=== PATIENT | male | born 1945 | race Caucasian/White ===

== ENCOUNTER 2023-10-16 12:11 | Inpatient (IN) | payer MEDICARE ==
--- NOTE | 2023-10-16 12:14 | ED ---
General Adult HPI - General Source: patient, family, RN notes reviewed Mode of arrival: wheelchair Limitations: physical limitation <Asa Khan - Last Filed: 10/16/23 12:13> <Shravan Johnson - Last Filed: 10/16/23 19:35> - General Stated complaint: Weakness Time Seen by Provider: 10/16/23 12:13 - History of Present Illness Initial comments: 78-year-old male presents emergency Department chief complaint of leg weakness Patient states that he try to get off the toilet states his legs are so weak he fell on the ground. Fire rescue came and lifted him up and he presented emergency department. Patient states he had issues like this in the past in which she's had infections including UTIs. Patient has no physical complaints otherwise then lower extremity weakness. Denies significant back pain. (Asa Khan) This is a 78-year-old male who states he got up this morning was walking around without any problem. Patient states he sat on the toilet and he usually takes 20-30 minutes to go to the bathroom. Patient states he was sitting there for quite a while this morning when he went to get up he didn't have the strength in his legs to move some and fell to his knees and his was unable to get him up so the paramedics came and got him up and around and brought him here to be evaluated for weakness. Patient states he has no other complaints. Patient denies any fever chills per patient states she's got significant neuropathy bilaterally. Patient denies any chest pain difficulty breathing shortest breath per patient denies any lightheadedness or dizziness. Patient denies any other problems at this time (Shravan Johnson) - Related Data Home Medications Medication Instructions Recorded Confirmed Metoprolol Tartrate [Lopressor] 25 mg PO QAM 12/25/21 06/17/23 Cholecalciferol [Vitamin D3 (125 125 mcg PO DAILY 12/31/22 06/17/23 Mcg = 5000 Iu)] Potassium Chloride [Klor-Con M10] 10 meq PO DAILY 12/31/22 06/17/23 Pyridoxine HCl (Vitamin B6) 100 mg PO DAILY 12/31/22 06/17/23 [Vitamin B-6] Gabapentin [Neurontin] 400 mg PO TID 03/19/23 06/17/23 amLODIPine [Norvasc] 5 mg PO QAM 03/19/23 06/17/23 Allergies Allergy/AdvReac Type Severity Reaction Status Date / Time Penicillins Allergy Anaphylaxis Verified 06/17/23 14:50 Review of Systems ROS Other: All systems not noted in ROS Statement are negative. <Asa Khan - Last Filed: 10/16/23 12:13> ROS Other: All systems not noted in ROS Statement are negative. <Shravan Johnson - Last Filed: 10/16/23 19:35> ROS Statement: Those systems with pertinent positive or pertinent negative responses have been documented in the HPI. Past Medical History Past Medical History: Cancer, Hearing Disorder / Deafness, Hypertension, Osteoarthritis (OA), Prostate Disorder, Sleep Apnea/CPAP/BIPAP Additional Past Medical History / Comment(s): C PAP MACHINE, PROSTATE CANCER, KIDNEY STONES, History of Any Multi-Drug Resistant Organisms: None Reported Past Surgical History: Joint Replacement, Tonsillectomy Additional Past Surgical History / Comment(s): TOTAL LEFT KNEE-X 2, BUNIONECTOMY RIGHT FOOT, RIGHT HIP REPLACEMENT Past Anesthesia/Blood Transfusion Reactions: No Reported Reaction Additional Past Anesthesia/Blood Transfusion Reaction / Comment(s): Never recieved blood transfusion. Additional Past Alcohol Use History / Comment(s): STARTED SMOKING AGE 12 QUIT SMOKED 2-3 PPD - Past Family History Father Family Medical History: Cancer Additional Family Medical History / Comment(s): BRAIN CANCER. Mother Family Medical History: Cancer Additional Family Medical History / Comment(s): LUNG CANCER. Brother(s) Family Medical History: Cancer Additional Family Medical History / Comment(s): PANCREATIC CANCER. <Asa Khan - Last Filed: 10/16/23 12:13> General Exam <Asa Khan - Last Filed: 10/16/23 12:13> <Shravan Johnson - Last Filed: 10/16/23 19:35> - General Exam Comments Initial Comments: Visual Physical Exam Vital signs reviewed General: Well-appearing, nontoxic, no acute distress. Head: Normocephalic, atraumatic Eyes: PERRLA, EOMI ENT: Airway patent Chest: Nonlabored breathing Skin: No visual rash, normal skin tone Neuro: Alert and oriented 3 Musculoskeletal: No gross abnormalities (Asa Khan) GENERAL: Patient is well-developed and well-nourished. Patient is nontoxic and well- hydrated and is in no acute distress. ENT: Neck is soft and supple. No significant lymphadenopathy is noted. Oropharynx is clear. Moist mucous membranes. Neck has full range of motion without eliciting any pain. EYES: The sclera were anicteric and conjunctiva were pink and moist. Extraocular movements were intact and pupils were equal round and reactive to light. Eyelids were unremarkable. PULMONARY: Unlabored respirations. Good breath sounds bilaterally. No audible rales rhonchi or wheezing was noted. CARDIOVASCULAR: There is a regular rate and rhythm without any murmurs gallops or rubs. ABDOMEN: Soft and nontender with normal bowel sounds. SKIN: Skin is clear with no lesions or rashes and otherwise unremarkable. NEUROLOGIC: Patient is alert and oriented x3. Cranial nerves II through XII are grossly intact. Motor and sensory are also intact. Normal speech, volume and content. Symmetrical smile. MUSCULOSKELETAL: Normal extremities with adequate strength and full range of motion. LYMPHATICS: No significant lymphadenopathy is noted PSYCHIATRIC: Normal psychiatric evaluation. (Shravan Johnson) Course Vital Signs 10/16/23 10/16/23 10/16/23 12:12 13:54 17:19 Temperature 98.4 F 98.8 F Pulse Rate 93 77 78 Pulse Rate [ Left] Pulse Rate [ Pulse Oximetery ] Respiratory 18 18 16 Rate Blood Pressure 127/78 119/72 116/76 Blood Pressure [Left Arm Supine] Blood Pressure [Sitting] Blood Pressure [Standing] O2 Sat by Pulse 96 100 97 Oximetry 10/16/23 10/16/23 18:34 18:52 Temperature 99.0 F Pulse Rate 61 Pulse Rate [ 91 Left] Pulse Rate [ 91 Pulse Oximetery ] Respiratory 16 Rate Blood Pressure 116/64 Blood Pressure 123/74 [Left Arm Supine] Blood Pressure 119/81 [Sitting] Blood Pressure 154/90 [Standing] O2 Sat by Pulse 97 Oximetry Medical Decision Making <Asa Khan - Last Filed: 10/16/23 12:13> - Lab Data Result diagrams: 10/16/23 12:49 10/16/23 12:49 <Shravan Johnson - Last Filed: 10/16/23 19:35> - Medical Decision Making I completed the quick note portion of this chart signed Asa Khan PA-C (Asa Khan) EKG is interpreted by myself. EKG shows a sinus rhythm at 90 bpm DE interval 233 QRS 91 QT interval 364 QTC is 402. Patient's EKG shows no ST segment elevation or depression. Was pt. sent in by a medical professional or institution ([facility], [employer], urgent care, hospital, or retirement...) When possible be specific @ -No Did you speak to anyone other than the patient for history (EMS, parent, family, police, friend...)? What history was obtained from this source @ -No Did you review nursing and triage notes (agree or disagree)? Why? @ -I reviewed and agree with nursing and triage notes Were old charts reviewed (outside hosp., previous admission, EMS record, old EKG, old radiological studies, urgent care reports/EKG's, retirement records)? Report findings @ -I reviewed prior charts and reviewed prior lab work Differential Diagnosis (chest pain, altered mental status, abdominal pain women, abdominal pain men, vaginal bleeding, weakness, fever, dyspnea, syncope, headache, dizziness, GI bleed, back pain, seizure, CVA, palpatations, mental health, musculoskeletal)? @ -Differential Weakness: Hypoglycemia, shock, sepsis, hyponatremia, anemia, infection, PA, ETOH, adverse medicine reaction, overdose, stroke, this is not meant to be an all-inclusive list. EKG interpreted by me (3pts min.). @ -As above X-rays interpreted by me (1pt min.). @ -Chest x-ray shows no acute abnormality CT interpreted by me (1pt min.). @ -None done U/S interpreted by me (1pt. min.). @ -None done What testing was considered but not performed or refused? (CT, X-rays, U/S, labs)? Why? @ -None What meds were considered but not given or refused? Why? @ -None Did you discuss the management of the patient with other professionals (professionals i.e. [facility], [employer], lab, RT, psych nurse, social services coordinator, diversified crops ii farmworker, teacher, administrative services officer, rn field case manager)? Give summary @ -I spoke with sound physician's agreed to admit the patient admitted the patient wrote admitting orders Was smoking cessation discussed for >3mins.? @ -No Was critical care preformed (if so, how long)? @ -No Were there social determinants of health that impacted care today? How? (Homelessness, low income, unemployed, alcoholism, drug addiction, transportation, low edu. Level, literacy, decrease access to med. care, senior care, rehab)? @ -No Was there de-escalation of care discussed even if they declined (Discuss DNR or withdrawal of care, Hospice)? DNR status @ -No What co-morbidities impacted this encounter? (DM, HTN, Smoking, COPD, CAD, Cancer, CVA, ARF, Chemo, Hep., AIDS, mental health diagnosis, sleep apnea, m orbid obesity)? @ -None Was patient admitted / discharged? Hospital course, mention meds given and route, prescriptions, significant lab abnormalities, going to OR and other pertinent info. @ -. Patient was given antibiotics for the urinary tract infection. Patient also had a red area on the right hip. He insisted he thinks it was there before but it is red and hot and with the high white count, I am concerned that it could be cellulitis. Patient will be admitted to [facility] physician's I wrote admitting orders Undiagnosed new problem with uncertain prognosis? @ -No Drug Therapy requiring intensive monitoring for toxicity (Heparin, Nitro, Insulin, Cardizem)? @ -No Were any procedures done? @ -No Diagnosis/symptom? @ -Urinary tract infection Acute, or Chronic, or Acute on Chronic? @ -Acute Uncomplicated (without systemic symptoms) or Complicated (systemic symptoms)? @ -Complicated Side effects of treatment? @ -No Exacerbation, Progression, or Severe Exacerbation? @ -No Poses a threat to life or bodily function? How? (Chest pain, USA, PA, pneumonia, PE, COPD, DKA, ARF, appy, cholecystitis, CVA, Diverticulitis, Homicidal, Suicidal, threat to staff... and all critical care pts) @ -Yes this could lead to sepsis and and organ dysfunction Diagnosis/symptom? @ -Inability to ambulate Acute, or Chronic, or Acute on Chronic? @ -Acute Uncomplicated (without systemic symptoms) or Complicated (systemic symptoms)? @ -Complicated Side effects of treatment? @ -none Exacerbation, Progression, or Severe Exacerbation] @ -no Poses a threat to life or bodily function? @ -no Diagnosis/symptom? @ -Hip cellulitis Acute, or Chronic, or Acute on Chronic? @ -Acute Uncomplicated (without systemic symptoms) or Complicated (systemic symptoms)? @ -Complicated Side effects of treatment? @ -none Exacerbation, Progression, or Severe Exacerbation] @ -no Poses a threat to life or bodily function? @ -no (JohnsonMalachiShravan) - Lab Data Lab Results 10/16/23 10/16/23 10/16/23 Range/Units 12:49 12:49 12:49 WBC 24.3 H (3.8-10.6) k/uL RBC 5.03 (4.30-5.90) m/uL Hgb 15.2 (13.0-17.5) gm/dL Hct 47.1 (39.0-53.0) % MCV 93.5 (80.0-100.0) fL MCH 30.1 (25.0-35.0) pg MCHC 32.2 (31.0-37.0) g/dL RDW 14.4 (11.5-15.5) % Plt Count 230 (150-450) k/uL MPV 7.0 Neutrophils % 92 % Lymphocytes % 3 % Monocytes % 3 % Eosinophils % 0 % Basophils % 0 % Neutrophils # 22.3 H (1.3-7.7) k/uL Lymphocytes # 0.6 L (1.0-4.8) k/uL Monocytes # 0.8 (0-1.0) k/uL Eosinophils # 0.0 (0-0.7) k/uL Basophils # 0.1 (0-0.2) k/uL Sodium 139 (137-145) mmol/L Potassium 4.5 (3.5-5.1) mmol/L Chloride 101 (98-107) mmol/L Carbon Dioxide 26 (22-30) mmol/L Anion Gap 12 mmol/L BUN 18 (9-20) mg/dL Creatinine 1.04 (0.66-1.25) mg/dL Est GFR (CKD-EPI)AfAm 80 (>60 ml/min/1.73 sqM) Est GFR (CKD-EPI)NonAf 69 (>60 ml/min/1.73 sqM) Glucose 123 H (74-99) mg/dL Plasma Lactic Acid Gordo 1.7 (0.7-2.0) mmol/L Calcium 9.3 (8.4-10.2) mg/dL Total Bilirubin 1.1 (0.2-1.3) mg/dL AST 33 (17-59) U/L ALT 28 (4-49) U/L Alkaline Phosphatase 77 (38-126) U/L Total Protein 7.3 (6.3-8.2) g/dL Albumin 4.4 (3.5-5.0) g/dL Amylase 42 (30-110) U/L Lipase 26 (23-300) U/L Urine Color Urine Appearance (Clear) Urine pH (5.0-8.0) Ur Specific Ripley (1.001-1.035) Urine Protein (Negative) Urine Glucose (UA) (Negative) Urine Ketones (Negative) Urine Blood (Negative) Urine Nitrite (Negative) Urine Bilirubin (Negative) Urine Urobilinogen (<2.0) mg/dL Ur Leukocyte Esterase (Negative) Urine RBC (0-5) /hpf Urine WBC (0-5) /hpf Ur Squamous Epith Cells (0-4) /hpf Urine Bacteria (None) /hpf Urine Mucus (None) /hpf Influenza Type A (PCR) (Not Detectd) Influenza Type B (PCR) (Not Detectd) RSV (PCR) (Not Detectd) SARS-CoV-2 (PCR) (Not Detectd) 10/16/23 10/16/23 Range/Units 12:49 13:56 WBC (3.8-10.6) k/uL RBC (4.30-5.90) m/uL Hgb (13.0-17.5) gm/dL Hct (39.0-53.0) % MCV (80.0-100.0) fL MCH (25.0-35.0) pg MCHC (31.0-37.0) g/dL RDW (11.5-15.5) % Plt Count (150-450) k/uL MPV Neutrophils % % Lymphocytes % % Monocytes % % Eosinophils % % Basophils % % Neutrophils # (1.3-7.7) k/uL Lymphocytes # (1.0-4.8) k/uL Monocytes # (0-1.0) k/uL Eosinophils # (0-0.7) k/uL Basophils # (0-0.2) k/uL Sodium (137-145) mmol/L Potassium (3.5-5.1) mmol/L Chloride (98-107) mmol/L Carbon Dioxide (22-30) mmol/L Anion Gap mmol/L BUN (9-20) mg/dL Creatinine (0.66-1.25) mg/dL Est GFR (CKD-EPI)AfAm (>60 ml/min/1.73 sqM) Est GFR (CKD-EPI)NonAf (>60 ml/min/1.73 sqM) Glucose (74-99) mg/dL Plasma Lactic Acid Gordo (0.7-2.0) mmol/L Calcium (8.4-10.2) mg/dL Total Bilirubin (0.2-1.3) mg/dL AST (17-59) U/L ALT (4-49) U/L Alkaline Phosphatase (38-126) U/L Total Protein (6.3-8.2) g/dL Albumin (3.5-5.0) g/dL Amylase (30-110) U/L Lipase (23-300) U/L Urine Color Yellow Urine Appearance Slightly Cloudy (Clear) Urine pH 5.0 (5.0-8.0) Ur Specific Ripley 1.010 (1.001-1.035) Urine Protein Trace H (Negative) Urine Glucose (UA) Negative (Negative) Urine Ketones Negative (Negative) Urine Blood Large H (Negative) Urine Nitrite Negative (Negative) Urine Bilirubin Negative (Negative) Urine Urobilinogen <2.0 (<2.0) mg/dL Ur Leukocyte Esterase Small H (Negative) Urine RBC 66 H (0-5) /hpf Urine WBC 99 H (0-5) /hpf Ur Squamous Epith Cells <1 (0-4) /hpf Urine Bacteria Rare H (None) /hpf Urine Mucus Rare H (None) /hpf Influenza Type A (PCR) Not Detected (Not Detectd) Influenza Type B (PCR) Not Detected (Not Detectd) RSV (PCR) Not Detected (Not Detectd) SARS-CoV-2 (PCR) Not Detected (Not Detectd) Disposition <Asa Khan - Last Filed: 10/16/23 12:13> Time of Disposition: 19:35 <Shravan Johnson - Last Filed: 10/16/23 19:35> Clinical Impression: Urinary tract infection, Inability to walk, Cellulitis of hip Disposition: ADMITTED IP TO THIS HOSP Referrals: Asa Clark DO [Primary Care Provider] - 1-2 days
[2023-10-16 13:09] LABS: Basophils # (A) 0.1 k/uL (0-0.2); Basophils % (A) 0 %; Eosinophils % (A) 0 %; HCT 47.1 % (39.0-53.0); HGB 15.2 gm/dL (13.0-17.5); Lymphocytes # (A) 0.6 k/uL (1.0-4.8); Lymphocytes % (A) 3 %; MCH 30.1 pg (25.0-35.0); MCHC 32.2 g/dL (31.0-37.0); MCV 93.5 fL (80.0-100.0); Monocytes # (A) 0.8 k/uL (0-1.0); Monocytes % (A) 3 %; Neutrophils # (A) 22.3 k/uL (1.3-7.7); Neutrophils % (A) 92 %; Platelet Count 230 k/uL (150-450); RBC 5.03 m/uL (4.30-5.90); RDW 14.4 % (11.5-15.5); WBC 24.3 k/uL (3.8-10.6)
[2023-10-16 13:23] LABS: ALT 28 U/L (4-49); AST 33 U/L (17-59); African American GFR (CKD) 80 (>60 ml/min/1.73 sqM); Albumin 4.4 g/dL (3.5-5.0); Alkaline Phosphatase 77 U/L (38-126); Amylase 42 U/L (30-110); Anion Gap 12 mmol/L; Blood Urea Nitrogen 18 mg/dL (9-20); Calcium 9.3 mg/dL (8.4-10.2); Carbon Dioxide 26 mmol/L (22-30); Chloride 101 mmol/L (98-107); Glucose 123 mg/dL (74-99); Lipase 26 U/L (23-300); Non-African American GFR(CKD) 69 (>60 ml/min/1.73 sqM); Potassium 4.5 mmol/L (3.5-5.1); Sodium 139 mmol/L (137-145); Total Bilirubin 1.1 mg/dL (0.2-1.3); Total Protein 7.3 g/dL (6.3-8.2)
--- NOTE | 2023-10-16 16:12 | XR ---
EXAMINATION TYPE: XR chest 2V DATE OF EXAM: 10/16/2023 COMPARISON: Chest x-ray January 06, 2022 HISTORY: Difficulty in breathing. TECHNIQUE: Frontal and lateral views of the chest are obtained. FINDINGS: Suboptimal due to large body habitus. Elevated left hemidiaphragm redemonstrated. There is no suspicious new focal air space opacity, pleural effusion, or pneumothorax seen. Mild cardiomegaly redemonstrated. The osseous structures are intact. IMPRESSION: Suboptimal study. Mild cardiomegaly without new acute pulmonary process
[2023-10-16 19:10] LABS: Appearance,Urine Slightly Cloudy (Clear); Color,Urine Yellow; Protein,Urine Trace (Negative)
[2023-10-16 19:11] LABS: Bilirubin,Urine Negative (Negative); Blood,Urine Large (Negative); Glucose,Urine (UA) Negative (Negative); Ketones,Urine Negative (Negative); Leukocyte Esterase,Urine Small (Negative); Nitrite,Urine Negative (Negative); Urobilinogen,Urine <2.0 mg/dL (<2.0)
[2023-10-16 19:12] LABS: Bacteria,Urine Rare /hpf; Mucus,Urine Rare /hpf; RBC,Urine 66 /hpf (0-5); Squamous Epithelial Cell,Urine <1 /hpf (0-4); WBC,Urine 99 /hpf (0-5)
[2023-10-16] MEDS ORDERED: LEVOFLOXACIN 750MG-D5W PMX 750 MG in DEXTROSE/WATER 1 150ML.BAG IVPB STA (19:23)
--- NOTE | 2023-10-17 01:08 | P.HPIM ---
History of Present Illness H&P Date: 10/16/23 Patient is a 78-year-old male with a PMH of prostate cancer and hypertension who presents to the emergency room with complaints of weakness. Patient reports he was sitting on his toilet and was unable to stand up due to leg weakness. Subsequently had a fall where he denies experiencing head trauma. He dialed 911 and called for his to help him get off the floor. At baseline ambulates with a walker and cane. He notes his weakness has been progressively worsening over the past several weeks. Denied any additional complaints. Denied experiencing urinary complaints, chest discomfort, shortness of breath, fever, chills, cough, nausea, vomiting, abdominal pain, diarrhea. In the emergency room a chest x-ray was unremarkable with EKG showing sinus rhythm with sinus arrhythmia at 90 bpm with T-wave flattening in leads V3 to V6 and leads 3 and aVF. Laboratory evaluation was remarkable for leukocytosis of 24.3 with abnormal UA showing blood and WBCs. The patient also had a T-max of 100.3F with SpO2 94% on room air, repeat 98/64, pulse 84, and respiratory rate 15. ED documentation reviewed and case discussed with ED provider. Review of systems: Pertinent positives and negatives as discussed in HPI, a complete review of systems was performed and all other systems are negative. Physical examination: Vital signs reviewed General: non toxic, no distress, appears at stated age, normal weight Derm: Mild erythema without tenderness or large area involving the right hip, warm Head: atraumatic, normocephalic, symmetric Eyes: EOMI, no lid lag, anicteric sclera, pupils equal round reactive to light ENT: Nose and ears atraumatic Neck: No cervical lymphadenopathy, trachea midline, supple Mouth: no lip lesion, mucus membranes moist Cardiovascular: S1S2 reg, no murmur, positive dorsalis pedis pulse bilateral, no edema Lungs: CTA bilateral, no rhonchi, no rales, no accessory muscle use Abdominal: soft, nontender to palpation, no guarding Ext: muscle strength 3 out of 5 in all 4 extremities grossly, no gross muscle atrophy, no contractures, Neuro: CN II-XI grossly intact, no gross focal neuro deficits Psych: Alert, oriented, appropriate affect Assessment: Sepsis secondary to UTI Debility Chronic conditions: Prostate cancer, hypertension Imaging: In the emergency room a chest x-ray was unremarkable with EKG showing sinus rhythm with sinus arrhythmia at 90 bpm with T-wave flattening in leads V3 to V6 and leads 3 and aVF Data Review: Laboratory evaluation was remarkable for leukocytosis of 24.3 with abnormal UA showing blood and WBCs. The patient also had a T-max of 100.3F with SpO2 94% on room air, repeat 98/64, pulse 84, and respiratory rate 15. Plan: Continue with Levaquin 750 mg every 24 hours (penicillin ALLERGY) Obtain CT brain and hip xray Follow-up blood and urine cultures PT consult DVT prophylaxis: Lovenox subcu The patient is admitted with an anticipated less than 2 midnight stay for evaluation of UTI CODE STATUS: Full Code Discussed with: Patient Anticipated discharge place: Home Past Medical History Past Medical History: Cancer, Hearing Disorder / Deafness, Hypertension, Osteoarthritis (OA), Prostate Disorder, Sleep Apnea/CPAP/BIPAP Additional Past Medical History / Comment(s): C PAP MACHINE, PROSTATE CANCER, KIDNEY STONES, History of Any Multi-Drug Resistant Organisms: None Reported Past Surgical History: Joint Replacement, Tonsillectomy Additional Past Surgical History / Comment(s): TOTAL LEFT KNEE-X 2, BUNIONECTOMY RIGHT FOOT, RIGHT HIP REPLACEMENT Past Anesthesia/Blood Transfusion Reactions: No Reported Reaction Additional Past Anesthesia/Blood Transfusion Reaction / Comment(s): Never recieved blood transfusion. Past Psychological History: No Psychological Hx Reported Smoking Status: Former smoker Past Alcohol Use History: Rare Additional Past Alcohol Use History / Comment(s): STARTED SMOKING AGE 12 QUIT SMOKED 2-3 PPD Past Drug Use History: None Reported - Past Family History Father Family Medical History: Cancer Additional Family Medical History / Comment(s): BRAIN CANCER. Mother Family Medical History: Cancer Additional Family Medical History / Comment(s): LUNG CANCER. Brother(s) Family Medical History: Cancer Additional Family Medical History / Comment(s): PANCREATIC CANCER. Medications and Allergies Home Medications Medication Instructions Recorded Confirmed Type Metoprolol Tartrate [Lopressor] 25 mg PO DAILY 12/25/21 10/16/23 History Potassium Chloride [Klor-Con M10] 10 meq PO DAILY 12/31/22 10/16/23 History Gabapentin [Neurontin] 400 mg PO TID 03/19/23 10/16/23 History amLODIPine [Norvasc] 5 mg PO DAILY 03/19/23 10/16/23 History Furosemide [Lasix] 20 mg PO DAILY 10/16/23 10/16/23 History Allergies Allergy/AdvReac Type Severity Reaction Status Date / Time Penicillins Allergy Anaphylaxis Verified 10/16/23 20:04 Physical Exam Vitals: Vital Signs Temp Pulse Pulse Pulse Resp BP BP 10/16/23 23:17 100.3 F H 84 15 98/64 10/16/23 20:00 98.9 F 68 18 118/68 10/16/23 18:52 99.0 F 61 16 116/64 10/16/23 18:34 91 91 123/74 10/16/23 17:19 98.8 F 78 16 116/76 10/16/23 13:54 77 18 119/72 10/16/23 12:12 98.4 F 93 18 127/78 BP BP Pulse Ox 10/16/23 23:17 94 L 10/16/23 20:00 97 10/16/23 18:52 97 10/16/23 18:34 119/81 154/90 10/16/23 17:19 97 10/16/23 13:54 100 10/16/23 12:12 96 Intake and Output 10/16/23 10/16/23 10/17/23 14:59 22:59 06:59 Other: Voiding Method Diaper Weight 129.274 kg 129.274 kg Results CBC & Chem 7: 10/16/23 12:49 10/16/23 12:49 Labs: Abnormal Lab Results - Last 24 Hours (Table) 10/16/23 10/16/23 10/16/23 Range/Units 12:49 12:49 13:56 WBC 24.3 H (3.8-10.6) k/uL Neutrophils # 22.3 H (1.3-7.7) k/uL Lymphocytes # 0.6 L (1.0-4.8) k/uL Glucose 123 H (74-99) mg/dL Urine Protein Trace H (Negative) Urine Blood Large H (Negative) Ur Leukocyte Esterase Small H (Negative) Urine RBC 66 H (0-5) /hpf Urine WBC 99 H (0-5) /hpf Urine Bacteria Rare H (None) /hpf Urine Mucus Rare H (None) /hpf Thrombosis Risk Factor Assmnt - Choose All That Apply Any of the Below Risk Factors Present?: Yes Each Factor Represents 1 point: Obesity (BMI >25) Other Risk Factors: Yes Each Risk Factor Represents 3 Points: Age 75 years or older Thrombosis Risk Factor Assessment Total Risk Factor Score: 4 Thrombosis Risk Factor Assessment Level: Moderate Risk
[2023-10-17] MEDS: SODIUM CHLORIDE 0.9% 1,000 ML IV SCH ×3 (02:00→19:13)
--- NOTE | 2023-10-17 05:00 | CT ---
EXAM: CT Head Without Intravenous Contrast CLINICAL HISTORY: ITS.REASON CT Reason: unwitnessed fall TECHNIQUE: Axial computed tomography images of the head/brain without intravenous contrast. CTDI is 45.2 mGy and DLP is 1125 mGy-cm. This CT exam was performed using one or more of the following dose reduction techniques: automated exposure control, adjustment of the mA and/or kV according to patient size, and/or use of iterative reconstruction technique. COMPARISON: No relevant prior studies available. FINDINGS: Brain: No hemorrhage or mass effect. Prominent extra-axial space in the left lateral convexity. Ventricles: No hydrocephalus. Bones/joints: Unremarkable. Soft tissues: Unremarkable. Sinuses: No air fluid level. Mastoid air cells: Clear. IMPRESSION: No acute hemorrhage, hydrocephalus, or mass effect. Prominent extra-axial space in the left lateral convexity. This may be from volume loss or trace subdural hygroma. EXAM: CT Cervical Spine Without Intravenous Contrast CLINICAL HISTORY: ITS.REASON CT Reason: unwitnessed fall TECHNIQUE: Axial computed tomography images of the cervical spine without intravenous contrast. CTDI is 33 mGy and DLP is 952.9 mGy-cm. This CT exam was performed using one or more of the following dose reduction techniques: automated exposure control, adjustment of the mA and/or kV according to patient size, and/or use of iterative reconstruction technique. COMPARISON: No relevant prior studies available. FINDINGS: Vertebrae: No acute fracture. Subcentimeter sclerotic lesion T1, likely bone island. Discs/spinal canal/neural foramina: degenerative changes. Moderate spinal canal stenosis C3-4 and C4-5. Soft tissues: No prevertebral swelling. Enlarged thyroid glands. IMPRESSION: No acute fracture or subluxation. Enlarged thyroid glands.
--- NOTE | 2023-10-17 07:03 | XR ---
EXAMINATION TYPE: XR Hip Bilateral and AP pelvis DATE OF EXAM: 10/17/2023 2:00 AM CLINICAL INDICATION:Male, 78 years old with history of fall; H COMPARISON: Right hip radiographs 04/29/2023 and before TECHNIQUE: Frontal view pelvis with frontal/frog-leg lateral views of each hip. FINDINGS: Osseous mineralization appears appropriate. Mild to moderate left hip osteoarthropathy. Mild degenera tive change of the SI joints. Right total hip arthroplasty in place. Partially seen posterior fusion changes at the L4 L5 S1 levels with prosthetic disc interspace material L4-L5 and L5-S1. No acute fra cture lucency or significant malalignment is identified. Right total hip arthroplasty appears intact and unchanged from prior. Small amount of talha-hardware l ucency at the proximal aspect of the femur is stable from the prior examination. No significant perih ardware lucency is seen along the distal aspect of the femoral stem. Soft tissues are unremarkable. IMPRESSION: 1. No evidence of acute fracture or traumatic malalignment of the pelvis or hips. 2. Right total hip arthroplasty, appears intact and unchanged from previous. Small lucency adjacent to the proximal femoral component of the hip arthroplasty, similar to prior, could be seen with some degree of loosening. 3. Mild/moderate left hip osteoarthropathy.
[2023-10-17] MEDS: METOPROLOL TARTRATE 25 MG TAB PO SCH (09:55)
[2023-10-17] MEDS: ENOXAPARIN 40 MG/0.4 ML SYRINGE SQ SCH (09:55)
[2023-10-17] MEDS: GABAPENTIN 400 MG CAP PO SCH ×3 (09:55→20:55)
[2023-10-17] MEDS: amLODIPine 5 MG TAB PO SCH (09:55)
[2023-10-17] MEDS: ACETAMINOPHEN TAB 325 MG TAB PO PRN (16:49)
--- NOTE | 2023-10-17 18:32 | P.PN ---
Subjective Progress Note Date: 10/17/23 Hospital course: Patient is a very pleasant 78-year-old male with a past medical history of prostate cancer, hypertension, and obstructive sleep apnea CPAP dependent. He presented to the emergency department with a chief complaint of weakness and fall at home. Patient reports he was sitting on the toilet and was unable to even stand up due to leg weakness. Patient reports weakness in bilateral legs denies numbness. Patient's was unable to help him get up and called for EM S. Patient baseline ambulates with a wheeled walker. Patient denies obtaining any injuries in the fall just reports overall generalized weakness. He underwent full evaluation in the emergency department. Vital signs completed and reviewed. Blood pressure 98/64, heart rate 84, respiratory rate 15, temperature 100.3F, and SpO2 of 94% on room air. Labs were completed and reviewed. CBC showing significant leukocytosis with WBC count of 24.3. BMP was unremarkable. Liver profile unremarkable. Urinalysis positive for protein, blood, and infection with leukocytes, 66 RBCs, and 99 WBCs. Influenza A, influenza B, RSV and Covid PCR were all negative. CT head and cervical spine negative for acute process. CT cervical spine showing enlarged thyroid glands. X-ray bilateral hip/pelvis showing no evidence of acute fracture or traumatic malalignment of the pelvis or hips revealing right total hip arthroplasty appears to be intact and mild to moderate left hip osteoarthroplasty. EKG comp leted and reviewed showing normal sinus rhythm with sinus arrhythmia at 90 bpm. Chest x-ray showing mild cardiomegaly negative for acute cardiopulmonary process. Patient was admitted under our services to observation unit for acute cystitis with hematuria and signs of sepsis. Physical exam: Vital signs reviewed and stable. General: Nontoxic, no distress and appears stated age. Obese. Derm: Skin warm and dry, normal coloration for ethnicity. Head: Atraumatic, normocephalic and symmetric. Eyes: EOMs intact, no lid lag, and anicteric sclera Mouth: no lip lesions, mucus membranes moist Cardiovascular: regular rate and rhythm with normal S1S2, systolic murmur, positive posterior tibial pulses bilaterally, and cap refill < 2 seconds. Lungs: Respirations even, regular, and unlabored on room air. Lungs CTA bilaterally, no rhonchi, no rales, no wheezing, and no accessory muscle usage. Abdominal: soft, nontender to palpation, no guarding, no appreciable organomegaly Ext: ROM intact. No gross muscle atrophy, scant edema, no contractures Neuro: Speech clear, face symmetrical and CN II-XII grossly intact with no noted focal neuro deficits Psych: Alert and oriented to person, place, time, and situation. Appropriate and pleasant affect. Assessment and Plan of Care: Acute cystitis with hematuria Sepsis secondary to above Generalized Weakness and fall -Patient received IV fluid hydration and tolerating oral intake well. IV fluids discontinued. -Order placed for IV antibiotics with Rocephin 2 g every 24 hours and follow up on urine culture results. -Order placed for Close monitoring of I's and O's. -Follow up on urine culture and blood culture. -Order placed for repeat CBC to follow up on significant leukocytosis and for BMP for close monitoring of renal function. -Consults placed to physical and occupational therapy for evaluation. -Tylenol 650 mg by mouth every 6 hours as needed for mild pain and/or fever. Obstructive sleep apnea -Order placed for continuation of CPAP nightly and while napping. Hypertension Continue daily medication regimen with Norvasc 5 mg daily and metoprolol 25 mg daily. Incidental finding on CT -Enlarged thyroid glands, recommend follow-up with outpatient nonemergent ultrasound. -We will obtain TSH and free T4. Data and imaging reviewed: Vital signs reviewed. Blood pressure 120/73, heart rate 114, temp 97.9F, SpO2 of 94% on room air. CODE STATUS: Full code DVT prophylaxis: Lovenox Anticipated discharge date: Within the next [address]: Home with homecare Patient was seen independently by Nurse Pracitioner. This document was prepared using [employer] dictation software. Please allow for errors in soldering inspector, while rare they do occur. Arjun Vazquez NP rendered care for this patient independently, reviewed the findings and plan as documented in the note above. I did not physically speak with or examine the patient on this date. Objective - Vital Signs Vital signs: Vital Signs Temp 98.2 F 10/17/23 14:39 Pulse 82 10/17/23 14:39 Resp 20 10/17/23 14:39 BP 122/67 10/17/23 14:39 Pulse Ox 96 10/17/23 14:39 FiO2 Intake & Output 10/16/23 10/17/23 10/17/23 18:59 06:59 18:59 Intake Total 1000 Balance 1000 Weight 129.274 kg 129.274 kg Intake: Oral 1000 Other: Voiding Method Diaper Bedside Commode Diaper External Catheter # Voids 2 2 - Labs CBC & Chem 7: 10/16/23 12:49 10/16/23 12:49 Labs: Abnormal Lab Results - Last 24 Hours (Table) 10/16/23 Range/Units 13:56 Urine Protein Trace H (Negative) Urine Blood Large H (Negative) Ur Leukocyte Esterase Small H (Negative) Urine RBC 66 H (0-5) /hpf Urine WBC 99 H (0-5) /hpf Urine Bacteria Rare H (None) /hpf Urine Mucus Rare H (None) /hpf
[2023-10-17] MEDS ORDERED: LEVOFLOXACIN 750MG-D5W PMX 750 MG in DEXTROSE/WATER 1 150ML.BAG IVPB SCH (20:00)
[2023-10-18] MEDS: ACETAMINOPHEN TAB 325 MG TAB PO PRN ×3 (03:44→19:49)
[2023-10-18] MEDS: amLODIPine 5 MG TAB PO SCH (08:41)
[2023-10-18] MEDS: GABAPENTIN 400 MG CAP PO SCH ×3 (08:41→19:49)
[2023-10-18] MEDS: METOPROLOL TARTRATE 25 MG TAB PO SCH (08:41)
[2023-10-18] MEDS: ENOXAPARIN 40 MG/0.4 ML SYRINGE SQ SCH (08:41)
[2023-10-18 09:22] LABS: ALT 19 U/L (10-49); AST 19 U/L (14-35); Albumin 3.5 g/dL (3.8-4.9); Albumin/Globulin Ratio 1.46 Ratio (1.60-3.17); Alkaline Phosphatase 67 U/L (41-126); Blood Urea Nitrogen 16.4 mg/dL (9.0-27.0); Calcium 8.4 mg/dL (8.7-10.3); Carbon Dioxide 23.8 mmol/L (21.6-31.8); Chloride 102 mmol/L (96-109); Globulin 2.4 g/dL (1.6-3.3); Glucose 123 mg/dL (70-110); Magnesium 2.1 mg/dL (1.5-2.4); Potassium 3.7 mmol/L (3.5-5.5); Sodium 136 mmol/L (135-145); Total Bilirubin 0.5 mg/dL (0.3-1.2); Total Protein 5.9 g/dL (6.2-8.2)
[2023-10-18 10:17] LABS: HCT 40.8 % (39.6-50.0); MCH 29.4 pg (27.0-32.0); MCHC 31.9 g/dL (32.0-37.0); MCV 92.3 FL (80.0-97.0); Mean Platelet Volume 9.7 FL (9.5-12.2); NRBC Per 100 WBC 0 X 10*3/uL (0.00-0.01); Platelet Count 196 X 10*3/uL (140-440); RBC 4.42 X 10*6/uL (4.40-5.60); RDW 15.2 % (11.5-14.5); WBC 17.37 X 10*3/uL (4.50-10.00)
--- NOTE | 2023-10-18 16:58 | P.PN ---
Subjective Progress Note Date: 10/18/23 (delayed charting seen at 1115) Patient is a 78-year-old male with history of prostate cancer, hypertension, and obstructive sleep apnea CPAP dependent who presetned to the ED with weakness and fall. In the emergency department he underwent an extensive evaluation which was remarkable for Blood pressure 98/64, temperature 100.3F, and WBC count of 24.3. Urinalysis was consistent with urinary tract infection. Influenza A, influenza B, RSV and Covid PCR were all negative. CT head and cervical spine negative for acute process. CT cervical spine showing enlarged thyroid glands. X-ray bilateral hip/pelvis showing no evidence of acute fracture or traumatic malalignment. Chest x-ray with no acute cardiopulmonary process. He was admitted for acute cystitis with sepsis. Patient seen and examined at bedside. He is feeling better than yesterday. He is feeling somewhat stronger and is so he can walk more. He is concerned that he has had a low lying urinary tract infection for quite some time. He does have a history of urinary incontinence after brachytherapy for prostate cancer. Vital signs reviewed General: nontoxic, no distress, appears at stated age Cardiovascular: S1S2 reg, no murmur, positive posterior tibial pulse bilateral, Lungs: CTA bilateral, no rhonchi, no rales , no accessory muscle use Abdominal: soft, nontender to palpation, no guarding, no appreciable organomegaly Ext: no gross muscle atrophy, no edema b/l lower extremities, no contractures Neuro: CN II-XI grossly intact, no focal neuro deficits Psych: Alert, oriented, appropriate affect Assessment/Plan: Acute cystitis with sepsis History of urethral stricture causing incontinent Debility Hx of Prostate cancer -Continue with Rocephin 2 g IV every 24 hours -Await urine culture -Patient has completed IV fluid resuscitation. Encourage oral fluid intake. -Patient should follow with Dr. Bauman upon discharge. - lasix on hold Hypertension HANK -Continue with Norvasc 5 mg daily, Lopressor 25 mg by mouth daily -Use oxygen at night as his CPAP is currently not available Imaging: None Data Review: Labs reviewed from today include CBC and complete metabolic profile which are remarkable for white blood cell count 17.37. TSH normal. DVT prophylaxis: Lovenox Anticipated discharge date: 24-[address]: home This dictation was prepared using [employer] voice recognition software. Though every attempt is made to correct errors during dictation some may still exist. Objective - Vital Signs Vital signs: Vital Signs Temp 98.2 F 10/18/23 15:00 Pulse 71 10/18/23 15:00 Resp 15 10/18/23 15:00 BP 112/76 10/18/23 15:00 Pulse Ox 96 10/18/23 15:00 FiO2 Intake & Output 10/17/23 10/18/23 10/18/23 18:59 06:59 18:59 Intake Total 1180 358 Output Total 700 Balance 1180 -700 358 Intake: Oral 1180 358 Output: Urine 700 Other: Voiding Method Bedside Commode Bedside Commode Bedside Commode Diaper External Catheter External Catheter External Catheter # Voids 2 - Labs CBC & Chem 7: 10/18/23 05:51 10/18/23 05:51 Labs: Abnormal Lab Results - Last 24 Hours (Table) 10/18/23 10/18/23 Range/Units 05:51 05:51 WBC 17.37 H (4.50-10.00) X 10*3/uL MCHC 31.9 L (32.0-37.0) g/dL RDW 15.2 H (11.5-14.5) % Glucose 123 H (70-110) mg/dL Calcium 8.4 L (8.7-10.3) mg/dL Total Protein 5.9 L (6.2-8.2) g/dL Albumin 3.5 L (3.8-4.9) g/dL Albumin/Globulin Ratio 1.46 L (1.60-3.17) Ratio Microbiology - Last 24 Hours (Table) 10/17/23 02:28 Blood Culture - Preliminary Blood
[2023-10-19] MEDS: ACETAMINOPHEN TAB 325 MG TAB PO PRN ×2 (00:52→19:31)
[2023-10-19 05:44] LABS: HCT 40.9 % (39.0-53.0); HGB 13.2 gm/dL (13.0-17.5); MCH 30.2 pg (25.0-35.0); MCHC 32.2 g/dL (31.0-37.0); MCV 93.8 fL (80.0-100.0); Mean Platelet Volume 7.5; Platelet Count 186 k/uL (150-450); RBC 4.37 m/uL (4.30-5.90); RDW 14.2 % (11.5-15.5); WBC 11.7 k/uL (3.8-10.6)
[2023-10-19 05:55] LABS: Carbon Dioxide 24 mmol/L (22-30); Chloride 103 mmol/L (98-107); Glucose 120 mg/dL (74-99); Potassium 3.8 mmol/L (3.5-5.1); Sodium 136 mmol/L (137-145)
[2023-10-19 05:56] LABS: African American GFR (CKD) >90 (>60 ml/min/1.73 sqM); Anion Gap 9 mmol/L; Blood Urea Nitrogen 17 mg/dL (9-20); Calcium 8.3 mg/dL (8.4-10.2); Non-African American GFR(CKD) 87 (>60 ml/min/1.73 sqM)
[2023-10-19] MEDS: GABAPENTIN 400 MG CAP PO SCH ×3 (09:23→21:24)
[2023-10-19] MEDS: METOPROLOL TARTRATE 25 MG TAB PO SCH (09:23)
[2023-10-19] MEDS: ENOXAPARIN 40 MG/0.4 ML SYRINGE SQ SCH (09:23)
[2023-10-19] MEDS: amLODIPine 5 MG TAB PO SCH (09:23)
--- NOTE | 2023-10-19 11:31 | XR ---
EXAMINATION TYPE: XR Hip Complete 2 views RT DATE OF EXAM: 10/19/2023 Comparison: 10/17/2023 Clinical History: 78-year-old male pain after fall Findings: These 2 views are markedly limited likely due to combination of portable technique and large body hab itus. There is an underlying right total hip arthroplasty. No obvious displaced periprostatic fractur e is seen. No worsening periprosthetic lucency. Impression: Markedly limited exam likely due to combination of portable technique and large body habitus. No obvi ous displaced periprosthetic fracture. Follow-up is patient nonweightbearing or symptoms persist.
--- NOTE | 2023-10-19 11:40 | CT ---
EXAMINATION TYPE: CT abdomen pelvis wo con DATE OF EXAM: 10/19/2023 COMPARISON: None HISTORY: 78-year-old male UTI, renal stones. Rt leg weakness. CT DLP: 1730.3 mGycm. Automated exposure control for dose reduction was used. TECHNIQUE: Contiguous axial scanning of the abdomen and pelvis without IV contrast. Coronal and sagit lamont reconstructions performed. FINDINGS: Heart upper limits of normal in size. Scattered coronary artery calcifications are present throughout . Paraseptal emphysematous change in the lower lungs as well as interstitial opacities, likely scarri ng and fibrosis. No pleural effusion. Tiny hiatal hernia. Noncontrast appearance of the liver, gallbladder, adrenal glands, left kidney, spleen, and atrophic p ancreas show no gross abnormality. There is a 1.2 cm cortical lesion lower pole right kidney too small for accurate CT characterization, probable cyst. Recommend 6 month follow-up CT to ensure stability. No dilated small bowel, free fluid, or free air. No mesenteric or retroperitoneal lymphadenopathy. Atherosclerotic plaque contributing to possible moderate narrowing of the infrarenal abdominal aorta. Additional noncalcified plaque probably occurred. 2. At least moderate stenosis of the proximal iliac arteries. Normal appendix. [id number] stool. Left-sided colonic diverticulosis with redundant proximal si gmoid colon. No pericolonic inflammatory change seen. Limited assessment of pelvic structures due to extensive streak and beam hardening artifact from the patient's right hip total arthroplasty. Bladder urine distended. Prostate gland measures 4.6 cm wide. Some minimal presacral soft tissue stranding of unknown etiology. Otherwise, no abnormal fluid colle ction in the pelvis or pelvic lymphadenopathy. Bones: Post surgical change of L4-S1 posterior and interbody fusion. Hypertrophic facet arthropathy. Fixed grade 1 retrolisthesis L4-L5. Moderate spondylotic changes elsewhere. Suspect at least moderat e neural foraminal stenosis throughout the lumbar spine. IMPRESSION: 1. No nephrolithiasis or hydronephrosis. There is a too small to characterize 1.2 cm cortical lesion lower pole right kidney. Probably a cyst. Six-month follow-up CT recommended to ensure stability. 2. Left-sided colonic diverticulosis without acute diverticulitis. 3. Tiny hiatal hernia. Some emphysematous change and mild fibrosis in the visualized lower lungs.
--- NOTE | 2023-10-19 13:31 | P.PN ---
Subjective Progress Note Date: 10/19/23 (delayed charting seen at 1027) Patient is a 78-year-old male with history of prostate cancer, hypertension, and obstructive sleep apnea CPAP dependent who presetned to the ED with weakness and fall. In the emergency department he underwent an extensive evaluation which was remarkable for Blood pressure 98/64, temperature 100.3F, and WBC count of 24.3. Urinalysis was consistent with urinary tract infection. Influenza A, influenza B, RSV and Covid PCR were all negative. CT head and cervical spine negative for acute process. CT cervical spine showing enlarged thyroid glands. X-ray bilateral hip/pelvis showing no evidence of acute fracture or traumatic malalignment. Chest x-ray with no acute cardiopulmonary process. He was admitted for acute cystitis with sepsis. Patient seen and examined at bedside. He states he has a history of kidney stones and felt like he was trying to pass a kidney stone from 3 AM until 6 AM this morning as he was having pain in his back radiating to his groin. He does have a history of requiring stone extraction with Dr. Cheek in the past. He is also complaining of bilateral leg weakness and pain in his thighs. He states that is what brought him in and caused him to fall. Vital signs reviewed General: nontoxic, no distress, appears at stated age Cardiovascular: S1S2 reg, no murmur, positive posterior tibial pulse bilateral, Lungs: CTA bilateral, no rhonchi, no rales , no accessory muscle use Abdominal: soft, nontender to palpation, no guarding, no appreciable organomegaly Ext: no gross muscle atrophy, no edema b/l lower extremities, no contractures Neuro: CN II-XI grossly intact, no focal neuro deficits Psych: Alert, oriented, appropriate affect Assessment/Plan: Staph aureus UTI, POA with sepsis History of urethral stricture causing incontinent Debility Hx of Prostate cancer -Continue with Rocephin 2 g IV every 24 hours -Patient has completed IV fluid resuscitation. Encourage oral fluid intake. -Patient should follow with Dr. Bauman upon discharge. -Resume Lasix in AM Back and right lower extremity pain Right Renal cyst- repeat CT in 6 months -Right hip x-ray ordered and reviewed Limited exam due to technique and large body habitus no obvious displaced periprosthetic fracture -Check CT abdomen and pelvis this is reviewed: There is a 1.2 cm cortical lesion in the lower pole of the right kidney probable simple cyst which recommends 6- month CT follow-up, left-sided colonic diverticulosis without acute diverticulitis, Tylenol hiatal hernia. Moderate foraminal stenosis throughout the lumbar spine -Given results of x-ray and CT will consult orthopedic surgery for evaluation of back and right hip pain with associated weakness -Check CPK and ESR - PT/OT recs, re-eval in AM Hypertension HANK -Continue with Norvasc 5 mg daily, Lopressor 25 mg by mouth daily -Use oxygen at night as his CPAP is currently not available Imaging: None Data Review: Labs reviewed today include CBC and basic metabolic profile which are remarkable for white blood cell count 11.7 and sodium of 136. Urine culture came back with Staph aureus which is sensitive to cefazolin DVT prophylaxis: Lovenox Anticipated discharge date: 24-[address]: home This dictation was prepared using [employer] voice recognition software. Though every attempt is made to correct errors during dictation some may still exist. Objective - Vital Signs Vital signs: Vital Signs Temp 97.7 F 10/19/23 07:00 Pulse 77 10/19/23 07:00 Resp 20 10/19/23 07:00 BP 141/84 10/19/23 07:00 Pulse Ox 98 10/19/23 07:00 FiO2 Intake & Output 10/18/23 10/19/23 10/19/23 18:59 06:59 18:59 Intake Total 358 Output Total 308 Balance 50 Intake: Oral 358 Output: Post Void Residual 308 Other: Voiding Method Bedside Commode Bedside Commode External Catheter External Catheter - Labs CBC & Chem 7: 10/19/23 05:21 10/19/23 05:21 Labs: Abnormal Lab Results - Last 24 Hours (Table) 10/19/23 10/19/23 Range/Units 05:21 05:21 WBC 11.7 H (3.8-10.6) k/uL Sodium 136 L (137-145) mmol/L Glucose 120 H (74-99) mg/dL Calcium 8.3 L (8.4-10.2) mg/dL Microbiology - Last 24 Hours (Table) 10/17/23 03:15 Urine Culture - Final Urine,Voided Staphylococcus aureus 10/17/23 02:28 Blood Culture - Preliminary Blood
[2023-10-19 23:58] VITALS: RESP 16
[2023-10-20] MEDS: ACETAMINOPHEN TAB 325 MG TAB PO PRN (04:10)
[2023-10-20 07:06] LABS: HGB 12.9 gm/dL (13.0-17.5); MCH 30.6 pg (25.0-35.0); MCHC 32.3 g/dL (31.0-37.0); MCV 94.6 fL (80.0-100.0); Mean Platelet Volume 7.6; Platelet Count 233 k/uL (150-450); RBC 4.23 m/uL (4.30-5.90); RDW 14.1 % (11.5-15.5); WBC 10.7 k/uL (3.8-10.6)
[2023-10-20 07:43] VITALS: BP 120/76; PULSE 82; TEMP 98.1
[2023-10-20 07:44] LABS: African American GFR (CKD) >90 (>60 ml/min/1.73 sqM); Anion Gap 9 mmol/L; Blood Urea Nitrogen 14 mg/dL (9-20); Calcium 8.4 mg/dL (8.4-10.2); Carbon Dioxide 26 mmol/L (22-30); Chloride 102 mmol/L (98-107); Glucose 116 mg/dL (74-99); Non-African American GFR(CKD) 88 (>60 ml/min/1.73 sqM); Potassium 3.8 mmol/L (3.5-5.1); Sodium 137 mmol/L (137-145)
[2023-10-20] MEDS ORDERED: CYCLOBENZAPRINE 10 MG TAB PO STA (07:58)
[2023-10-20] MEDS: ENOXAPARIN 40 MG/0.4 ML SYRINGE SQ SCH (09:00)
[2023-10-20] MEDS ORDERED: FUROSEMIDE 20 MG TAB PO SCH (09:00)
[2023-10-20] MEDS ORDERED: POTASSIUM CHLORIDE ER 10 MEQ TAB.ER.PRT PO SCH (09:00)
[2023-10-20] MEDS: amLODIPine 5 MG TAB PO SCH (09:01)
[2023-10-20] MEDS: METOPROLOL TARTRATE 25 MG TAB PO SCH (09:01)
[2023-10-20] MEDS: GABAPENTIN 400 MG CAP PO SCH (09:01)
--- NOTE | 2023-10-20 14:34 | P.CNOR ---
History of Present Illness - [facility] Consult date: 10/20/23 Requesting physician: Christiana Siegel Consult reason: other (right hip pain and weakness, back pain, fall ) History of present illness: Patient is a 78-year-old male who presents to the emergency department on 10/16/2023 with a chief complaint of leg weakness. Patient was at home trying to the toilet when his legs were 2 weeks and he got up he felt. Patient denies loss of consciousness or hitting his head. Patient says his called the ambulance and came to the hospital. Patient says he does have a history of urinary incontinence. Patient does have a previous right total hip arthroplasty performed by Dr. Quevedo. Previous lumbar spine surgery with Dr. Sloan. Orthopedics consulted for lower extremity weakness. Patient seen at bedside this morning sitting up in chair with legs elevated on 6N floor. Patient denies any right hip pain or lower extremity weakness/pain at this time. Patient is currently complaining of some stiffness in the neck. Patient denies any previous surgery to the neck. Patient states his right hip is feeling well at this time. He denies any issues with lower extremity weakness. Patient states he has had some difficulties at home with falls. He says this has been ongoing for a while now. Patient denies any significant back pain at this time. He has no other complaints at this time. Patient denies chest pain, fever, shortness o f breath, nausea, vomiting, change in vision, loss of bowel/bladder control. Past Medical History Past Medical History: Cancer, Hearing Disorder / Deafness, Hypertension, Osteoarthritis (OA), Prostate Disorder, Sleep Apnea/CPAP/BIPAP Additional Past Medical History / Comment(s): C PAP MACHINE, PROSTATE CANCER, KIDNEY STONES, History of Any Multi-Drug Resistant Organisms: None Reported Past Surgical History: Joint Replacement, Tonsillectomy Additional Past Surgical History / Comment(s): TOTAL LEFT KNEE-X 2, BUNIONECTOMY RIGHT FOOT, RIGHT HIP REPLACEMENT Past Anesthesia/Blood Transfusion Reactions: No Reported Reaction Additional Past Anesthesia/Blood Transfusion Reaction / Comm: Never recieved blood transfusion. Past Psychological History: No Psychological Hx Reported Smoking Status: Former smoker Past Alcohol Use History: Rare Additional Past Alcohol Use History / Comment(s): STARTED SMOKING AGE 12 QUIT SMOKED 2-3 PPD Past Drug Use History: None Reported - Past Family History Father Family Medical History: Cancer Additional Family Medical History / Comment(s): BRAIN CANCER. Mother Family Medical History: Cancer Additional Family Medical History / Comment(s): LUNG CANCER. Brother(s) Family Medical History: Cancer Additional Family Medical History / Comment(s): PANCREATIC CANCER. Medications and Allergies Home Medications Medication Instructions Recorded Confirmed Type Metoprolol Tartrate [Lopressor] 25 mg PO DAILY 12/25/21 10/16/23 History Potassium Chloride [Klor-Con M10] 10 meq PO DAILY 12/31/22 10/16/23 History Gabapentin [Neurontin] 400 mg PO TID 03/19/23 10/16/23 History amLODIPine [Norvasc] 5 mg PO DAILY 03/19/23 10/16/23 History Furosemide [Lasix] 20 mg PO DAILY 10/16/23 10/16/23 History Amoxic-Pot Clav 875-125Mg 1 tab PO Q12HR 10 Days #20 tab 10/20/23 Rx [Augmentin 875-125] Allergies Allergy/AdvReac Type Severity Reaction Status Date / Time Penicillins Allergy Anaphylaxis Verified 10/16/23 20:04 Physical Examination Inspection: Scar present over right hip from previous right total hip arthroplasty. Negative for any open fractures, significant erythema/ecchymosis/open wounds. Palpation: minimal TTP to right hip. minimal TTP diffusely throughout lumbar spine Sensation: Diminished sensation in the bilateral lower extremities in the feet. Patient does have history of neuropathy. Sensation is equal, symmetric, by intact progressive upper extremities and lower extremities Range of motion: full ROM in BUE. limited ROM bilateral hips in flexion/extension secondary to weakness. full ROM bilateral ankles motor: 5/5 in all major motor groups in BUE. 4-/5 in bilateral hips in flexio/extension. 4+/5 in all other major motor groups BLE. Neurovascular: Radial pulses intact, 2+. Cap refill under 3 seconds digits upper extremities Special tests: Negative Homans bilaterally. Results - Labs Labs: Abnormal Lab Results - Last 24 Hours (Table) 10/19/23 10/20/23 10/20/23 Range/Units 05:21 06:11 06:11 WBC 10.7 H (3.8-10.6) k/uL RBC 4.23 L (4.30-5.90) m/uL Hgb 12.9 L (13.0-17.5) gm/dL ESR 80 H (0-20) mm/Hr Glucose 116 H (74-99) mg/dL Microbiology - Last 24 Hours (Table) 10/17/23 03:15 Urine Culture - Final Urine,Voided Staphylococcus aureus 10/17/23 02:28 Blood Culture - Preliminary Blood H & H 10/16/23 10/18/23 10/19/23 Range/Units 12:49 05:51 05:21 Hgb 15.2 13.0 13.2 (13.0-17.5) gm/dL Hct 47.1 40.8 40.9 (39.0-53.0) % 10/20/23 Range/Units 06:11 Hgb 12.9 L (13.0-17.5) gm/dL Hct 40.0 (39.0-53.0) % Result Diagrams: 10/20/23 06:11 10/20/23 06:11 - Diagnostic results Hip x-ray: report reviewed, image reviewed (X-ray right hip is negative for any fracture. Implant in the right hip appears to be stable at this time. Negative for any loosening.) Assessment and Plan Assessment: 1. Lower extremity weakness; history of right total hip arthroplasty Plan: 1. Lower extremity weakness; history of right total hip arthroplasty - X-ray right hip is negative for any fracture. Implant in the right hip appears to be stable at this time. Negative for any loosening. Patient does present with some generalized weakness in the lower extremities on exam. No concerns for any issues with right hip implant based on imaging and exam. At this time we are recommending conservative measures with these pain medication and PT/OT. Patient may follow-up in the outpatient setting with Dr. Qeuvedo for further evaluation as needed for his right hip. At this time, patient is stable from orthopedic standpoint for discharge home. Orthopedics sigining off at this time. Please do not hesitate to contact us with any questions. 2. Appreciate medical management 3. Pain management - Flexeril; gabapentin; Tylenol 4. GI prophylaxis recs 5. DVT prophylaxis - Lovenox 6. PT/OT - weightbearing as tolerated with walker and assistance as needed 7. Encourage incentive spirometer use 8. Appreciate consult Time with Patient: Less than 30
--- NOTE | 2023-10-20 17:04 | P.DS ---
Providers Date of admission: 10/20/23 09:08 Expected date of discharge: 10/20/23 Attending physician: Zehra Rodriguez MD Consults: 10/19/23 13:27 Consult Physician Routine Consulting Provider: Isaias Quevedo Consult Reason/Comments: right hip pain and weakness, back pain, fall Do you want consulting provider notified?: Yes Primary care physician: Asa Clark Hospital Course: Discharge Diagnosis: Staph aureus UTI, POA with sepsis. Patient with history of recurrent UTIs. Patient received 4 day course of antibiotics with Rocephin in the hospital and is being discharged home with an extended course of antibiotics secondary to recurrent UTIs and concerns for possible underlying prostatitis. Patient discharged home on an additional 10 day course of Augmentin 875/125 mg tablets twice daily for 10 days to total an antibiotic treatment course of 14 days. Patient discharged home at this time and to follow up outpatient with PCP Dr. Clark in 1-2 days and with urologist, Dr. Cheek in 2 weeks. Patient discharged home with [facility]. History of urethral stricture causing incontinence Debility Hx of Prostate cancer Chronic lower back Back and right lower extremity pain, patient evaluated by orthopedic surgery. Stating implant in the right hip appears to be stable recommending conservative measures only with pain medication and continued PT/OT. Right Renal cyst- repeat CT in 6 months Hypertension. Continue with Norvasc 5 mg daily and Lopressor 25 mg by mouth daily HANK. Resume home CPAP nightly. Incidental finding on CT. Enlarged thyroid glands, recommend follow-up with outpatient nonemergent ultrasound. TSH normal findings is 0.866. Hospital Course: Patient is a very pleasant 78-year-old male with a past medical history of prostate cancer, hypertension, and obstructive sleep apnea CPAP dependent. He presented to the emergency department with a chief complaint of weakness and fall at home. Patient reports he was sitting on the toilet and was unable to even stand up due to leg weakness. Patient reports weakness in bilateral legs denies numbness. Patient's was unable to help him get up and called for EMS. Patient baseline ambulates with a wheeled walker. Patient denies obtaining any injuries in the fall just reports overall generalized weakness. He underwent full evaluation in the emergency department. Vital signs completed and reviewed. Blood pressure 98/64, heart rate 84, respiratory rate 15, temperature 100.3F, and SpO2 of 94% on room air. Labs were completed and reviewed. CBC showing significant leukocytosis with WBC count of 24.3. BMP was unremarkable. Liver profile unremarkable. Urinalysis positive for protein, blood, and infection with leukocytes, 66 RBCs, and 99 WBCs. Influenza A, influenza B, RSV and Covid PCR were all negative. CT head and cervical spine negative for acute process. CT cervical spine showing enlarged thyroid glands. X-ray bilateral hip/pelvis showing no evidence of acute fracture or traumatic malalignment of the pelvis or hips revealing right total hip arthroplasty appears to be intact and mild to moderate left hip osteoarthroplasty. EKG completed and reviewed showing normal sinus rhythm with sinus arrhythmia at 90 bpm. Chest x-ray showing mild cardiomegaly negative for acute cardiopulmonary process. Patient was admitted under our services to observation unit for acute cystitis with hematuria and signs of sepsis. Physical exam: Vital signs reviewed and stable. General: Nontoxic, no distress and appears stated age. Obese. Derm: Skin warm and dry, normal coloration for ethnicity. Head: Atraumatic, normocephalic and symmetric. Eyes: EOMs intact, no lid lag, and anicteric sclera Mouth: no lip lesions, mucus membranes moist Cardiovascular: regular rate and rhythm with normal S1S2, systolic murmur, positive posterior tibial pulses bilaterally, and cap refill < 2 seconds. Lungs: Respirations even, regular, and unlabored on room air. Lungs CTA bilaterally, no rhonchi, no rales, no wheezing, and no accessory muscle usage. Abdominal: soft, nontender to palpation, no guarding, no appreciable organomegaly Ext: ROM intact. No gross muscle atrophy, scant edema, no contractures Neuro: Speech clear, face symmetrical and CN II-XII grossly intact with no noted focal neuro deficits Psych: Alert and oriented to person, place, time, and situation. Appropriate and pleasant affect. affect. A total of 35 minutes of time were spent preparing this complex discharge summary. Pt was discharged on 10/20/23 at 12:55 PM. Patient was seen independently by Nurse Practitioner. This document was prepared using [employer] dictation software. Please allow for errors in guidance consultant while rare they do occur. Arjun Vazquez NP rendered care for this patient independently, reviewed the findings and plan as documented in the note above. I did not physically speak with or examine the patient on this date. Patient Condition at Discharge: Stable Plan - Discharge Summary Discharge Rx Participant: No New Discharge Prescriptions: New Amoxic-Pot Clav 875-125Mg [Augmentin 875-125] 1 tab PO Q12HR 10 Days #20 tab Cyclobenzaprine [Flexeril] 5 mg PO BID PRN #20 tablet PRN Reason: Pain Continue Metoprolol Tartrate [Lopressor] 25 mg PO DAILY Gabapentin [Neurontin] 400 mg PO TID Potassium Chloride [Klor-Con M10] 10 meq PO DAILY amLODIPine [Norvasc] 5 mg PO DAILY Furosemide [Lasix] 20 mg PO DAILY Discharge Medication List Metoprolol Tartrate [Lopressor] 25 mg PO DAILY 12/25/21 [History] Potassium Chloride [Klor-Con M10] 10 meq PO DAILY 12/31/22 [History] Gabapentin [Neurontin] 400 mg PO TID 03/19/23 [History] amLODIPine [Norvasc] 5 mg PO DAILY 03/19/23 [History] Furosemide [Lasix] 20 mg PO DAILY 10/16/23 [History] Amoxic-Pot Clav 875-125Mg [Augmentin 875-125] 1 tab PO Q12HR 10 Days #20 tab 10/20/23 [Rx] Cyclobenzaprine [Flexeril] 5 mg PO BID PRN #20 tablet 10/20/23 [Rx] Follow up Appointment(s)/Referral(s): Isaias Quevedo DO [Doctor of Osteopathic Medicine] - As Needed Asa Clark DO [Primary Care Provider] - 1-2 days Romeo Cheek MD [STAFF PHYSICIAN] - 10/30/23 7:40 am [facility] Visiting Nurse, [NON-STAFF] - 1 Week Patient Instructions/Handouts: Urinary Tract Infection in Men (DC) Activity/Diet/Wound Care/Special Instructions: Activity: As tolerated. Take breaks as needed. Diet: Heart healthy and carb consistent diet. Avoid salts, or foods with hidden salts such as canned or boxed foods and frozen dinners. Extra salt makes your heart work harder and traps the fluid in your body for longer. Special Instructions: Take all of your medications as directed and remember to keep all of your doctor's appointments and follow-up as needed. Computed tomography scan did show an enlarged thyroid, this can be very common finding and your thyroid function is normal. However recommend outpatient follow-up with your primary care doctor and further evaluation with a thyroid ultrasound. Right renal cyst, recommend repeat CT in 6 months for follow up and monitoring. Wishing you and your family a truly blessed holiday season and healthy new year!!! Thank you for allowing us to participate in your care, it was truly a pleasure having you for our patient!!! Discharge Disposition: HOME WITH HOME HEALTH SERVICES
== END 2023-10-20 14:00 | disposition home health service (06) | DRG 872 ==
LOC: EC 12:11 → 6NMEDSUR 19:37 → OBSVTOIN 10-20 09:08 → MERGE 10-20 09:08
PROVIDERS: ADMIT Internal Medicine; ATTEND Internal Medicine
DX: A41.01 Sepsis due to Methicillin susceptible Staphylococcus aureus (principal); N30.01 Acute cystitis with hematuria; L03.115 Cellulitis of right lower limb; I10 Essential (primary) hypertension; G47.33 Obstructive sleep apnea (adult) (pediatric); N28.1 Cyst of kidney, acquired; M48.061 Spinal stenosis, lumbar region without neurogenic claudication; M19.90 Unspecified osteoarthritis, unspecified site; H91.90 Unspecified hearing loss, unspecified ear; R32 Unspecified urinary incontinence; Z79.899 Other long term (current) drug therapy; Z85.46 Personal history of malignant neoplasm of prostate; Z96.641 Presence of right artificial hip joint; Z96.652 Presence of left artificial knee joint; Z87.442 Personal history of urinary calculi; Z87.440 Personal history of urinary (tract) infections; W18.11XA Fall from or off toilet without subsequent striking against object, initial encounter; Y93.9 Activity, unspecified; Y92.002 Bathroom of unspecified non-institutional (private) residence as the place of occurrence of the external cause; Z88.0 Allergy status to penicillin
CPT/HCPCS: 36415; 70450; 71046; 72125; 73502; 73521; 74176; 80048; 80053; 81001; 82150; 82550; 83605; 83690; 83735; 84443; 85025; 85027; 85652; 87040; 87077; 87086; 87186; 87636; 93005; 96365; 96366; 99285

== ENCOUNTER 2023-10-20 18:58 | Observation (INO) | payer MEDICARE ==
[2023-10-20] MEDS ORDERED: SODIUM CHLORIDE 0.9% 1,000 ML IV STA (19:29)
--- NOTE | 2023-10-20 20:00 | ED ---
Weakness HPI - General Chief complaint: Fall Stated complaint: UTI/Fall/Weakness Time Seen by Provider: 10/20/23 19:01 Source: patient, RN notes reviewed, old records reviewed Mode of arrival: ambulatory Limitations: no limitations - History of Present Illness Initial comments: This is a 78-year-old male ER stay. Patient presents to the emergency depar tment today for evaluation regards to weakness. Patient was just discharged home after prolonged hospitalization and states that he got home he was severely weak unable to ambulate unable to move unable to bear his own weight he tried standing up and fell to ground had a lift assist, and was unable to get out of his chair after he was put there by EMS. Patient at this time is brought to the ER for placement as he is significantly disabled after recent hospital admission MD Complaint: generalized weakness, lack of energy, difficulty walking -: days(s) Location: generalized Severity: moderate Severity scale (1-10): 6 Consistency: constant Improves with: none Worsens with: none Context: recent illness, history of similar Associated Symptoms: denies other symptoms - Related Data Home Medications Medication Instructions Recorded Confirmed Amoxic-Pot Clav 875-125Mg 1 tab PO Q12H 10/20/23 10/20/23 [Augmentin 875-125] Cyclobenzaprine [Flexeril] 5 mg PO BID PRN 10/20/23 10/20/23 Furosemide [Lasix] 20 mg PO DAILY 10/20/23 10/20/23 Gabapentin [Neurontin] 400 mg PO TID 10/20/23 10/20/23 Metoprolol Tartrate [Lopressor] 25 mg PO DAILY 10/20/23 10/20/23 Potassium Chloride ER [K-Dur 10] 10 meq PO DAILY 10/20/23 10/20/23 amLODIPine [Norvasc] 5 mg PO DAILY 10/20/23 10/20/23 Allergies Allergy/AdvReac Type Severity Reaction Status Date / Time Penicillins Allergy Anaphylaxis Verified 10/20/23 20:31 Review of Systems ROS Statement: Those systems with pertinent positive or pertinent negative responses have been documented in the HPI. ROS Other: All systems not noted in ROS Statement are negative. Past Medical History Past Medical History: Hypertension Additional Past Medical History / Comment(s): neuropathy History of Any Multi-Drug Resistant Organisms: None Reported Past Surgical History: Adenoidectomy, Orthopedic Surgery, Tonsillectomy Past Psychological History: No Psychological Hx Reported Smoking Status: Former smoker Past Alcohol Use History: Rare Past Drug Use History: None Reported General Exam Limitations: no limitations General appearance: alert, in no apparent distress Head exam: Present: atraumatic, normocephalic, normal inspection Eye exam: Present: normal appearance, PERRL, EOMI. Absent: scleral icterus, conjunctival injection, periorbital swelling ENT exam: Present: normal exam, mucous membranes moist Neck exam: Present: normal inspection. Absent: tenderness, meningismus, ly mphadenopathy Respiratory exam: Present: normal lung sounds bilaterally. Absent: respiratory distress, wheezes, rales, rhonchi, stridor Cardiovascular Exam: Present: regular rate, normal rhythm, normal heart sounds. Absent: systolic murmur, diastolic murmur, rubs, gallop, clicks GI/Abdominal exam: Present: soft, normal bowel sounds. Absent: distended, tenderness, guarding, rebound, rigid Extremities exam: Present: normal inspection, full ROM, normal capillary refill. Absent: tenderness, pedal edema, joint swelling, calf tenderness Back exam: Present: normal inspection Neurological exam: Present: alert, oriented X3, CN II-XII intact Psychiatric exam: Present: normal affect, normal mood Skin exam: Present: warm, dry, intact, normal color. Absent: rash Course Vital Signs 10/20/23 19:01 Temperature 99.3 F Pulse Rate 100 Respiratory 16 Rate Blood Pressure 129/61 O2 Sat by Pulse 95 Oximetry - Reevaluation(s) Reevaluation #1: 10/20/23 21:01 Medical record is reviewed Reevaluation #2: 10/20/23 21:01 Patient is still disabled Reevaluation #3: 10/20/23 21:01 Patient informed results questions answered Reevaluation #4: 10/20/23 21:01 Was pt. sent in by a medical professional or institution (, PA, ART TEACHER, urgent care, hospital, or [facility]...) When possible be specific @ -no Did you speak to anyone other than the patient for history (EMS, parent, family, police, friend...)? What history was obtained from this source @ -no Did you review nursing and triage notes (agree or disagree)? Why? @ -agree Are old charts reviewed (outside hosp., previous admission, EMS record, old EKG, old radiological studies, urgent care reports/EKG's, [facility] records)? Report findings @ -yes Differential Diagnosis (chest pain, altered mental status, abdominal pain women, abdominal pain men, vaginal bleeding, weakness, fever, dyspnea, syncope, headache, dizziness, GI bleed, back pain, seizure, CVA, palpatations, mental health, musculoskeletal)? @ -prior EKG interpreted by me (3pts min.). @ -yes X-rays interpreted by me (1pt min.). @ -yes CT interpreted by me (1pt min.). @ -no U/S interpreted by me (1pt. min.). @ -no What testing was considered but not performed or refused? (CT, X-rays, U/S, labs)? Why? @ -none What meds were considered but not given or refused? Why? @ -none Did you discuss the management of the patient with other professionals (professionals i.e. , PA, ART TEACHER, lab, RT, psych nurse, secondary social studies teacher, photographer finish, teacher, ordnance officer, case briefer)? Give summary @ -no Was smoking cessation discussed for >3mins.? @ -no Was critical care preformed (if so, how long)? @ -no Were there social determinants of health that impacted care today? How? (Homelessness, low income, unemployed, alcoholism, drug addiction, transportation, low edu. Level, literacy, decrease access to med. care, group home, rehab)? @ -none Was there de-escalation of care discussed even if they declined (Discuss DNR or withdrawal of care, Hospice)? DNR status @ -no What co-morbidities impacted this encounter? (DM, HTN, Smoking, COPD, CAD, Cancer, CVA, ARF, Chemo, Hep., AIDS, mental health diagnosis, sleep apnea, morbid obesity)? @ -none Was patient admitted / discharged? Hospital course, mention meds given and route, prescriptions, significant lab abnormalities, going to OR and other per tinent info. @ - Undiagnosed new problem with uncertain prognosis? @ -no Drug Therapy requiring intensive monitoring for toxicity (Heparin, Nitro, Insulin, Cardizem)? @ -no Were any procedures done? @ -no Diagnosis/symptom? @ - Acute, or Chronic, or Acute on Chronic? @ -Acute Uncomplicated (without systemic symptoms) or Complicated (systemic symptoms)? @ -Complicated Side effects of treatment? @ -no Exacerbation, Progression, or Severe Exacerbation? @ -exacerbation Poses a threat to life or bodily function? How? (Chest pain, USA, NC, pneumonia, PE, COPD, DKA, ARF, appy, cholecystitis, CVA, Diverticulitis, Homicidal, Suicidal, threat to staff... and all critical care pts) @ -yes Reevaluation #5: 10/20/23 21:01 Differential Weakness: Hypoglycemia, shock, sepsis, hyponatremia, anemia, infection, NC, ETOH, adverse medicine reaction, overdose, stroke, this is not meant to be an all-inclusive list. - Consultations Consultation #1: spoke with sound who will admit this patient EKG Findings - EKG Comments: EKG Findings:: EKG is A. fib 96 QRS 92 QTC 392 - EKG Results: EKG: interpreted by JAZ Medical Decision Making - Medical Decision Making 78 female patient's the ER today who will be admitted for debility, [facility] debility - Lab Data Result diagrams: 10/20/23 20:23 Disposition Clinical Impression: Fall, Debility, Weakness Disposition: ADMITTED IP TO THIS [facility] Condition: Fair Is patient prescribed a controlled substance at d/c from ED?: No Time of Disposition: 20:10
[2023-10-20] MEDS ORDERED: NALOXONE 0.4 MG/ML 1 ML VIAL IV PRN (20:14)
[2023-10-20] MEDS ORDERED: ONDANSETRON 4 MG/2 ML VIAL IVP PRN (20:14)
[2023-10-20 20:43] LABS: HCT 42.6 % (39.0-53.0); HGB 13.8 gm/dL (13.0-17.5); MCH 30.5 pg (25.0-35.0); MCHC 32.4 g/dL (31.0-37.0); MCV 94.2 fL (80.0-100.0); Mean Platelet Volume 7.7; Platelet Count 286 k/uL (150-450); RBC 4.53 m/uL (4.30-5.90); RDW 14.1 % (11.5-15.5); WBC 14.6 k/uL (3.8-10.6)
[2023-10-20 21:11] LABS: ALT 74 U/L (4-49); AST 58 U/L (17-59); African American GFR (CKD) >90 (>60 ml/min/1.73 sqM); Albumin 3.3 g/dL (3.5-5.0); Alkaline Phosphatase 147 U/L (38-126); Anion Gap 9 mmol/L; Blood Urea Nitrogen 15 mg/dL (9-20); Calcium 8.4 mg/dL (8.4-10.2); Carbon Dioxide 27 mmol/L (22-30); Chloride 101 mmol/L (98-107); Glucose 108 mg/dL (74-99); Magnesium 2.1 mg/dL (1.6-2.3); Non-African American GFR(CKD) 87 (>60 ml/min/1.73 sqM); Potassium 3.8 mmol/L (3.5-5.1); Sodium 137 mmol/L (137-145); Total Bilirubin 0.8 mg/dL (0.2-1.3); Total Protein 6.2 g/dL (6.3-8.2)
[2023-10-20 21:20] LABS: NT-Pro-B-Type Natriuretic Pept 587 pg/mL
[2023-10-20 21:35] LABS: Nucleated Red Blood Cells 0 /100 WBC (0-0); Total Cells Counted 100
[2023-10-20 21:36] LABS: Lymphocytes # (M) 1.75 k/uL (1.0-4.8); Monocytes # (M) 1.61 k/uL (0-1.0); Neutrophils # (M) 11.24 k/uL (1.3-7.7); Neutrophils % (M) 77 %
[2023-10-20 21:37] LABS: RBC Morphology Normal
[2023-10-20] MEDS: SODIUM CHLORIDE 0.9% 1,000 ML IV SCH (21:48)
[2023-10-20] MEDS ORDERED: CYCLOBENZAPRINE 5 MG TAB PO PRN (22:08)
[2023-10-20] MEDS: GABAPENTIN 400 MG CAP PO SCH (22:33)
[2023-10-20 23:16] LABS: RBC,Urine 7 /hpf (0-5); WBC,Urine 11 /hpf (0-5)
[2023-10-20 23:17] LABS: Appearance,Urine Slightly Cloudy (Clear); Bilirubin,Urine Negative (Negative); Blood,Urine Small (Negative); Color,Urine Amber; Glucose,Urine (UA) Negative (Negative); Ketones,Urine Negative (Negative); Protein,Urine 1+ (Negative); Specific Gravity,Urine 1.002 (1.001-1.035)
[2023-10-20 23:18] LABS: Leukocyte Esterase,Urine Moderate (Negative); Nitrite,Urine Negative (Negative); Urobilinogen,Urine <2.0 mg/dL (<2.0)
--- NOTE | 2023-10-21 03:45 | P.HPIM ---
History of Present Illness H&P Date: 10/21/23 Chief Complaint: Generalized weakness 78-year-old male with history of prostate cancer. Patient was recently admitted for generalized weakness and hypotension where he was diagnosed with urinary tract infection positive for staph was treated with Rocephin 2 g IV piggyback daily for few days then was discharged on Augmentin twice a day to home yesterday however after spending one day at home his was unable to take care of him he was increasingly weak and unable to get up and walk and take care of himself for which she decided to come back to the hospital he did not get his prescription filled for the antibiotics upon discharge otherwise denies any chest pain trouble breathing nausea vomiting fevers chills abdominal pain Currently he denies any new complaints, he is requesting possible placement due to inability to take care of his ADLs at home review of systems Pertinent positives as noted in HPI. All other systems were reviewed and are negative on exam Constitutional: No acute distress, Eyes: Anicteric sclerae, moist conjunctiva, Pupils equal round reactive to light ENMT: NC/AT Oropharynx clear, no erythema, or exudates Neck: Supple, no masses, or JVD No carotid bruits No thyromegaly Lungs: Clear to auscultation Clear to percussion Normal respiratory effort, no accessory muscle use Cardiovascular: Heart regular in rate and rhythm, No murmurs, gallops, or rubs No peripheral edema Abdominal: Soft Nontender, no guarding, rebound or rigidity Abdomen moving with respiration Normoactive bowel sounds No hepatomegaly, No splenomegaly Obese limiting exam Extremities: No digital cyanosis No clubbing Pedal pulses intact and symmetrical Radial pulses intact and symmetrical No calf tenderness Psychiatric: Alert and oriented to person, place and time Appropriate affect fair judgement Neuro Muscles Strength 4/5 in all 4 extremities Sensation to light touch grossly present throughout Cranial nerves II-XII grossly intact Lymphatics: no palpable cervical or supraclavicular lymph nodes Past Medical History Past Medical History: Hypertension Additional Past Medical History / Comment(s): neuropathy History of Any Multi-Drug Resistant Organisms: None Reported Past Surgical History: Adenoidectomy, Orthopedic Surgery, Tonsillectomy Past Psychological History: No Psychological Hx Reported Smoking Status: Former smoker Past Alcohol Use History: Rare Past Drug Use History: None Reported Medications and Allergies Home Medications Medication Instructions Recorded Confirmed Type Amoxic-Pot Clav 875-125Mg 1 tab PO Q12H 10/20/23 10/20/23 History [Augmentin 875-125] Cyclobenzaprine [Flexeril] 5 mg PO BID PRN 10/20/23 10/20/23 History Furosemide [Lasix] 20 mg PO DAILY 10/20/23 10/20/23 History Gabapentin [Neurontin] 400 mg PO TID 10/20/23 10/20/23 History Metoprolol Tartrate [Lopressor] 25 mg PO DAILY 10/20/23 10/20/23 History Potassium Chloride ER [K-Dur 10] 10 meq PO DAILY 10/20/23 10/20/23 History amLODIPine [Norvasc] 5 mg PO DAILY 10/20/23 10/20/23 History Allergies Allergy/AdvReac Type Severity Reaction Status Date / Time Penicillins Allergy Anaphylaxis Verified 10/20/23 20:31 Physical Exam Vitals: Vital Signs Temp Pulse Resp BP Pulse Ox 10/20/23 23:45 88 20 119/59 95 10/20/23 22:40 92 20 122/76 96 10/20/23 19:01 99.3 F 100 16 129/61 95 Intake and Output 10/20/23 10/20/23 10/21/23 14:59 22:59 06:59 Other: Weight 122.47 kg Results CBC & Chem 7: 10/20/23 20:23 10/20/23 20:23 Labs: Abnormal Lab Results - Last 24 Hours (Table) 10/20/23 10/20/23 10/20/23 Range/Units 20:23 20:23 20:23 WBC 14.6 H (3.8-10.6) k/uL Neutrophils # (Manual) 11.24 H (1.3-7.7) k/uL Monocytes # (Manual) 1.61 H (0-1.0) k/uL Glucose 108 H (74-99) mg/dL ALT 74 H (4-49) U/L Alkaline Phosphatase 147 H (38-126) U/L Total Protein 6.2 L (6.3-8.2) g/dL Albumin 3.3 L (3.5-5.0) g/dL Urine Protein 1+ H (Negative) Urine Blood Small H (Negative) Ur Leukocyte Esterase Moderate H (Negative) Urine RBC 7 H (0-5) /hpf Urine WBC 11 H (0-5) /hpf Assessment and Plan Assessment: 78-year-old male with prostate cancer hypertension and obstructive sleep apnea recently admitted to the hospital and discharged with a diagnosis of sepsis secondary to UTI however upon going home he was unable to perform his ADLs for which she came back to the hospital for further care due to risk of falling I discussed the case with the ED doctor and accepted the admission to continue IV antibiotics and get PT evaluation for discharge recommendation with anticipated length of stay more than 2 midnights Recent diagnosis of sepsis secondary to UTI with concerns regarding underlying prostatitis Microbiology showed staph aureus status post 4 days of IV antibiotics with Rocephin, patient was discharged home with Augmentin twice a day for 10 days however he failed to fill the prescription Continue with Rocephin 1 g IV piggyback daily Leukocytosis 14.6 afebrile Tylenol 650 mg by mouth every 6 hours when necessary for fever Gentle IV fluid hydration normal saline 75 mL per hour Chronic conditions Obstructive sleep apnea Patient encouraged to bring his own CPAP Continue supplemental oxygen as needed Hypertension Continue with Amlodipine 5 mg daily Metoprolol 25 mg by mouth daily Debility, unable to take care of ADLs at home Fall precautions PT evaluation for discharge recommendations Incidental finding of enlarged thyroid gland with recommendations for outpatient follow-up TSH 0.86 from last admission Full code DVT prophylaxis heparin subcu 3 times a day
[2023-10-21] MEDS: ACETAMINOPHEN TAB 325 MG TAB PO PRN ×2 (04:01→08:08)
[2023-10-21] MEDS: HEPARIN SODIUM,PORCINE 5,000 UNIT/ML 1 ML VIAL SQ SCH ×2 (07:58→15:35)
[2023-10-21] MEDS: PANTOPRAZOLE 40 MG TABLET PO SCH (07:58)
[2023-10-21] MEDS: GABAPENTIN 400 MG CAP PO SCH ×4 (07:59→15:35)
[2023-10-21] MEDS: FUROSEMIDE 20 MG TAB PO SCH (08:03)
[2023-10-21] MEDS: METOPROLOL TARTRATE 25 MG TAB PO SCH (08:04)
[2023-10-21] MEDS: amLODIPine 5 MG TAB PO SCH (08:04)
[2023-10-21] MEDS: SODIUM CHLORIDE 0.9% 1,000 ML IV SCH (09:12)
[2023-10-21] MEDS: MORPHINE SULFATE 4 MG/ML SYRINGE IV PRN ×3 (12:25→20:51)
--- NOTE | 2023-10-21 17:15 | P.PN ---
Subjective Progress Note Date: 10/21/23 Hospital course: Patient is a very pleasant 78-year-old male with a past medical history of prostate cancer, hypertension, and obstructive sleep apnea CPAP dependent. He was recently hospitalized for reports of generalized weakness and falls at home and was found to have a staph aureus UTI with sepsis. Patient received 4 day course of antibiotics with Rocephin and was discharged home with Augmentin 875/125 mg twice daily for an extended course of antibiotics secondary to recurrent UTIs and concerns for possible underlying prostatitis. During this hospitalization, patient was also evaluated by physical therapy and was found to be independent of activity from sitting to standing without assistance only requiring supervision. Pt was discharged on 10/20/23 and returned later that evening to the emergency department with a chief complaint of weakness and reports that his is unable to care for him at home. Physical exam: Vital signs reviewed and stable. General: Nontoxic, no distress and appears stated age. Obese. Derm: Skin warm and dry, normal coloration for ethnicity. Head: Atraumatic, normocephalic and symmetric. Eyes: EOMs intact, no lid lag, and anicteric sclera Mouth: no lip lesions, mucus membranes moist Cardiovascular: regular rate and rhythm with normal S1S2, systolic murmur, positive posterior tibial pulses bilaterally, and cap refill < 2 seconds. Lungs: Respirations even, regular, and unlabored on room air. Lungs CTA bilaterally, no rhonchi, no rales, no wheezing, and no accessory muscle usage. Abdominal: soft, nontender to palpation, no guarding, no appreciable organomegaly Ext: ROM intact. No gross muscle atrophy, scant edema, no contractures Neuro: Speech clear, face symmetrical and CN II-XII grossly intact with no noted focal neuro deficits Psych: Alert and oriented to person, place, time, and situation. Appropriate and pleasant affect. affect. Assessment and Plan of Care: Generalized weakness and debility -Patient's states patient is unable to get up by himself and she cannot care for him at home, requesting assistance with placement. -Patient was evaluated during previous hospitalization for reports of weakness and per physical therapy notes patient was independent, patient denies new falls or injuries. -We will re-consult physical and occupational therapy for evaluation. -Discussed with patient and his in detail that if patient does not meet requirements for placement in nursing home facility he will likely be discharged home again with home care and we can make arrangements for zoltan lift or other supportive equipment if needed. -Continue Tylenol 650 mg by mouth every 6 hours as needed for mild pain and/or fever. Recently diagnosed Staph aureus UTI History of prostate cancer -May resume Rocephin 2 g IVPB daily and again be discharged on Augmentin 875/125 mg tablets every 12 hours (patient has documented ALLERGY to penicillin but does report taking Augmentin without any complication in the past, patient reports penicillin ALLERGY was when he was a child and he does not recall details but told he was not able to take it again, however if pt tolerated augmentin in the past it is unlikely that he has a penicillin allergy). Obstructive sleep apnea -Order placed for continuation of CPAP nightly and while napping. Hypertension Continue daily medication regimen with Norvasc 5 mg daily and metoprolol 25 mg daily. CODE STATUS: Full code DVT prophylaxis: Heparin Anticipated discharge date: Clinical course to determine Anticipated discharge place: Clinical course to determine Patient was seen independently by Nurse Pracitioner. This document was prepared using [employer] dictation software. Please allow for errors in supervisor sawmill, while rare they do occur. Arjun Vazquez NP rendered care for this patient independently, reviewed the findings and plan as documented in the note above. I did not physically speak with or examine the patient on this date. Objective - Vital Signs Vital signs: Vital Signs Temp 98.6 F 10/21/23 07:59 Pulse 82 10/21/23 07:59 Resp 18 10/21/23 07:59 BP 111/76 10/21/23 07:59 Pulse Ox 95 10/21/23 07:59 FiO2 Intake & Output 10/20/23 10/21/23 10/21/23 18:59 06:59 18:59 Weight 122.47 kg - Labs CBC & Chem 7: 10/20/23 20:23 10/20/23 20:23 Labs: Abnormal Lab Results - Last 24 Hours (Table) 10/20/23 10/20/23 10/20/23 Range/Units 20:23 20:23 20:23 WBC 14.6 H (3.8-10.6) k/uL Neutrophils # (Manual) 11.24 H (1.3-7.7) k/uL Monocytes # (Manual) 1.61 H (0-1.0) k/uL Glucose 108 H (74-99) mg/dL ALT 74 H (4-49) U/L Alkaline Phosphatase 147 H (38-126) U/L Total Protein 6.2 L (6.3-8.2) g/dL Albumin 3.3 L (3.5-5.0) g/dL Urine Protein 1+ H (Negative) Urine Blood Small H (Negative) Ur Leukocyte Esterase Moderate H (Negative) Urine RBC 7 H (0-5) /hpf Urine WBC 11 H (0-5) /hpf
[2023-10-22] MEDS: HEPARIN SODIUM,PORCINE 5,000 UNIT/ML 1 ML VIAL SQ SCH ×4 (02:28→23:49)
[2023-10-22 04:45] VITALS: RESP 16
[2023-10-22] MEDS: MORPHINE SULFATE 4 MG/ML SYRINGE IV PRN ×4 (04:53→23:49)
[2023-10-22] MEDS: SODIUM CHLORIDE 0.9% 1,000 ML IV SCH ×2 (06:31→09:26)
[2023-10-22] MEDS: ACETAMINOPHEN TAB 325 MG TAB PO PRN (08:20)
[2023-10-22] MEDS: amLODIPine 5 MG TAB PO SCH (08:20)
[2023-10-22] MEDS: GABAPENTIN 400 MG CAP PO SCH ×3 (08:20→20:33)
[2023-10-22] MEDS: METOPROLOL TARTRATE 25 MG TAB PO SCH (09:26)
[2023-10-22] MEDS: PANTOPRAZOLE 40 MG TABLET PO SCH (09:26)
[2023-10-22] MEDS: FUROSEMIDE 20 MG TAB PO SCH (09:26)
--- NOTE | 2023-10-22 12:32 | P.PN ---
Subjective Progress Note Date: 10/22/23 Hospital course: Patient is a very pleasant 78-year-old male with a past medical history of prostate cancer, hypertension, and obstructive sleep apnea CPAP dependent. He was recently hospitalized for reports of generalized weakness and falls at home and was found to have a staph aureus UTI with sepsis. Patient received 4 day course of antibiotics with Rocephin and was discharged home with Augmentin 875/125 mg twice daily for an extended course of antibiotics secondary to recurrent UTIs and concerns for possible underlying prostatitis. During this hospitalization, patient was also evaluated by physical therapy and was found to be independent of activity from sitting to standing without assistance only requiring supervision. Pt was discharged on 10/20/23 and returned later that evening to the emergency department with a chief complaint of weakness and reports that his is unable to care for him at home. Patient seen and examined at bedside. No acute events overnight. Physical exam: Vital signs reviewed and stable. General: Nontoxic, no distress and appears stated age. Obese. Derm: Skin warm and dry, normal coloration for ethnicity. Head: Atraumatic, normocephalic and symmetric. Eyes: EOMs intact, no lid lag, and anicteric sclera Mouth: no lip lesions, mucus membranes moist Cardiovascular: regular rate and rhythm with normal S1S2, systolic murmur, po sitive posterior tibial pulses bilaterally, and cap refill < 2 seconds. Lungs: Respirations even, regular, and unlabored on room air. Lungs CTA bilaterally, no rhonchi, no rales, no wheezing, and no accessory muscle usage. Abdominal: soft, nontender to palpation, no guarding, no appreciable organ omegaly Ext: ROM intact. No gross muscle atrophy, scant edema, no contractures, strength 3 out of 5 bilaterally lower extremities Neuro: Speech clear, face symmetrical and CN II-XII grossly intact with no noted focal neuro deficits Psych: Alert and oriented to person, place, time, and situation. Appropriate and pleasant affect. affect. Assessment and Plan of Care: Generalized weakness and debility -PT/OT -Discussed with case reviewer, referral process started -Continue Tylenol 650 mg by mouth every 6 hours as needed for mild pain and/or fever -Morphine 4 mg IV every 4 hours as needed, monitor for respiratory depression Recently diagnosed Staph aureus UTI, MSSA History of prostate cancer -continue Rocephin IV 2 g every 24 hours Microbiology data from previous admission reviewed Obstructive sleep apnea -Continue CPAP Hypertension -Continue daily medication regimen with Norvasc 5 mg daily and metoprolol 25 mg daily -Patient also on Lasix 20 mg daily Chronic neck pain, continue gabapentin 400 mg 3 times a day CODE STATUS: Full code DVT prophylaxis: Heparin Anticipated discharge date: Clinical course to determine Anticipated discharge place: Clinical course to determine Objective - Vital Signs Vital signs: Vital Signs Temp 98.1 F 10/22/23 07:13 Pulse 88 10/22/23 07:13 Resp 16 10/22/23 07:13 BP 131/84 10/22/23 07:13 Pulse Ox 96 10/22/23 07:13 FiO2 Intake & Output 10/21/23 10/22/23 10/22/23 18:59 06:59 18:59 Intake Total 590 Output Total 1100 Balance -1100 590 Weight 122.47 kg Intake: Oral 590 Output: Urine 1100 - Labs CBC & Chem 7: 10/20/23 20:23 10/20/23 20:23
[2023-10-23] MEDS: ACETAMINOPHEN TAB 325 MG TAB PO PRN ×2 (02:32→06:03)
[2023-10-23] MEDS: MORPHINE SULFATE 4 MG/ML SYRINGE IV PRN (04:13)
[2023-10-23] MEDS: GABAPENTIN 400 MG CAP PO SCH (08:04)
[2023-10-23] MEDS: HEPARIN SODIUM,PORCINE 5,000 UNIT/ML 1 ML VIAL SQ SCH (08:04)
[2023-10-23] MEDS: amLODIPine 5 MG TAB PO SCH (08:05)
[2023-10-23] MEDS: METOPROLOL TARTRATE 25 MG TAB PO SCH (08:05)
[2023-10-23] MEDS: PANTOPRAZOLE 40 MG TABLET PO SCH (08:05)
[2023-10-23] MEDS: FUROSEMIDE 20 MG TAB PO SCH (08:05)
[2023-10-23] MEDS ORDERED: polyethylene glycoL 3350 17 GM POWD.PACK PO PRN (08:19)
[2023-10-23] MEDS ORDERED: SENNOSIDES 8.6 MG TAB PO SCH (09:00)
[2023-10-23 09:18] LABS: Basophils # (A) 0.04 X 10*3/uL (0.00-0.10); Basophils % (A) 0.3 %; Eosinophils # (A) 0.18 X 10*3/uL (0.04-0.35); Eosinophils % (A) 1.4 %; HCT 37.4 % (39.6-50.0); Lymphocytes # (A) 1.24 X 10*3/uL (0.90-5.00); Lymphocytes % (A) 9.6 %; MCH 29.8 pg (27.0-32.0); MCHC 32.1 g/dL (32.0-37.0); MCV 92.8 FL (80.0-97.0); Mean Platelet Volume 9.5 FL (9.5-12.2); Monocytes % (A) 10.9 %; NRBC Per 100 WBC 0 X 10*3/uL (0.00-0.01); Neutrophils # (A) 9.89 X 10*3/uL (1.80-7.70); Neutrophils % (A) 76.9 %; Platelet Count 332 X 10*3/uL (140-440); RBC 4.03 X 10*6/uL (4.40-5.60); RDW 14.3 % (11.5-14.5); WBC 12.87 X 10*3/uL (4.50-10.00)
--- NOTE | 2023-10-23 13:07 | P.DS ---
Providers Date of admission: 10/20/23 20:14 Expected date of discharge: 10/23/23 Attending physician: Alexx Hardin MD Primary care physician: [facility] Hospital Course: Discharge Diagnosis: Generalized weakness and debility Recently diagnosed Staph aureus UTI, MSSA History of prostate cancer Leukocytosis Obstructive sleep apnea Hypertension Chronic pain Constipation Hospital Course: Patient is a very pleasant 78-year-old male with a past medical history of prostate cancer, hypertension, and obstructive sleep apnea CPAP dependent. He was recently hospitalized for reports of generalized weakness and falls at home and was found to have a staph aureus UTI with sepsis. Patient received 4 day course of antibiotics with Rocephin and was discharged home with Augmentin 875/125 mg twice daily for an extended course of antibiotics secondary to recurrent UTIs and concerns for possible underlying prostatitis. During this hospitalization, patient was also evaluated by physical therapy and was found to be independent of activity from sitting to standing without assistance only requiring supervision. Pt was discharged on 10/20/23 and returned later that evening to the emergency department with a chief complaint of weakness and reports that his is unable to care for him at home. Patient seen and examined at bedside. Vital signs reviewed and stable. General: Nontoxic, no distress and appears stated age. Obese. Derm: Skin warm and dry, normal coloration for ethnicity. Head: Atraumatic, normocephalic and symmetric. Eyes: EOMs intact, no lid lag, and anicteric sclera Mouth: no lip lesions, mucus membranes moist Cardiovascular: regular rate and rhythm with normal S1S2, systolic murmur, positive posterior tibial pulses bilaterally, and cap refill < 2 seconds. Lungs: Respirations even, regular, and unlabored on room air. Lungs CTA bilaterally, no rhonchi, no rales, no wheezing, and no accessory muscle usage. Abdominal: soft, nontender to palpation, no guarding, no appreciable organomega ly Ext: ROM intact. No gross muscle atrophy, scant edema, no contractures, strength 3 out of 5 bilaterally lower extremities Neuro: Speech clear, face symmetrical and CN II-XII grossly intact with no noted focal neuro deficits Psych: Alert and oriented to person, place, time, and situation. Appropriate and pleasant affect. affect. A total of 33 minutes of time were spent preparing this complex discharge summary. Patient was discharged on 12/14/23 at 1304. Patient Condition at Discharge: Stable Plan - Discharge Summary New Discharge Prescriptions: New polyethylene glycoL 3350 [Miralax] 17 gm PO DAILY PRN packet PRN Reason: Constipation Pantoprazole [Protonix] 40 mg PO AC-BRKFST tab Sennosides [Senokot] 8.6 mg PO DAILY tab Continue amLODIPine [Norvasc] 5 mg PO DAILY Potassium Chloride [Klor-Con M10] 10 meq PO DAILY Cyclobenzaprine [Flexeril] 5 mg PO BID PRN #20 tablet PRN Reason: Pain Metoprolol Tartrate [Lopressor] 25 mg PO DAILY Gabapentin [Neurontin] 400 mg PO TID Furosemide [Lasix] 20 mg PO DAILY Amoxic-Pot Clav 875-125Mg [Augmentin 875-125] 1 tab PO Q12HR 7 Days #20 tab Discontinued Metoprolol Tartrate [Lopressor] 25 mg PO DAILY Gabapentin [Neurontin] 400 mg PO TID Cyclobenzaprine [Flexeril] 5 mg PO BID PRN PRN Reason: Muscle Spasm Amoxic-Pot Clav 875-125Mg [Augmentin 875-125] 1 tab PO Q12H amLODIPine [Norvasc] 5 mg PO DAILY Furosemide [Lasix] 20 mg PO DAILY Potassium Chloride ER [K-Dur 10] 10 meq PO DAILY Discharge Medication List Potassium Chloride [Klor-Con M10] 10 meq PO DAILY 12/31/22 [History] Cyclobenzaprine [Flexeril] 5 mg PO BID PRN #20 tablet 10/20/23 [Rx] Furosemide [Lasix] 20 mg PO DAILY 10/20/23 [History] Gabapentin [Neurontin] 400 mg PO TID 10/20/23 [History] Metoprolol Tartrate [Lopressor] 25 mg PO DAILY 10/20/23 [History] amLODIPine [Norvasc] 5 mg PO DAILY 10/20/23 [History] Amoxic-Pot Clav 875-125Mg [Augmentin 875-125] 1 tab PO Q12HR 7 Days #20 tab 10/23/23 [Rx] Pantoprazole [Protonix] 40 mg PO AC-BRKFST tab 10/23/23 [Rx] Sennosides [Senokot] 8.6 mg PO DAILY tab 10/23/23 [Rx] polyethylene glycoL 3350 [Miralax] 17 gm PO DAILY PRN packet 10/23/23 [Rx] Follow up Appointment(s)/Referral(s): [facility],Clinic [Primary Care Provider] - 1-2 days Romeo Cheek MD [STAFF PHYSICIAN] - 1 Week Patient Instructions/Handouts: Urinary Tract Infection in Men (DC) Activity/Diet/Wound Care/Special Instructions: Please take additional 7 days of abx. Follow up with urology. Discharge Disposition: TRANSFER TO SNF/ECF
[2023-10-23 15:11] VITALS: BP 108/70; PULSE 82; TEMP 99
== END 2023-10-23 15:10 ==
LOC: EC 18:58 → 6NMEDSUR 20:14 → 5NMEDONC 10-21 17:13
PROVIDERS: ADMIT Internal Medicine; ATTEND Internal Medicine
DX: R54 Age-related physical debility (principal); I10 Essential (primary) hypertension; D72.829 Elevated white blood cell count, unspecified; N39.0 Urinary tract infection, site not specified; B95.61 Methicillin susceptible Staphylococcus aureus infection as the cause of diseases classified elsewhere; G89.29 Other chronic pain; K59.00 Constipation, unspecified; G47.33 Obstructive sleep apnea (adult) (pediatric); E04.9 Nontoxic goiter, unspecified; Z85.46 Personal history of malignant neoplasm of prostate; Z87.891 Personal history of nicotine dependence; Z79.899 Other long term (current) drug therapy; Z88.0 Allergy status to penicillin
CPT/HCPCS: 96376 ×4; 96361 ×3; 96366 ×2; 96372 ×3; 96365; 96375; 99285; 94760; 93005; 97530; 97162; 97166; 83880; 80053; 83605; 83735; 84100; 84484; 85025 ×2; 81001; G0378 ×5; J2270 ×3; J1644 ×3; J0696 ×3

== ENCOUNTER 2023-11-10 11:31 | Emergency (ER) | payer MEDICARE, OTHER ==
[2023-11-10 11:46] VITALS: TEMP 98.1
[2023-11-10] MEDS ORDERED: LIDOCAINE 2% URO-JET JELLY 5 ML KIT URETHRAL ONE (12:03)
[2023-11-10] MEDS ORDERED: HYDROmorphone 1 MG/ML 1 ML SYRINGE IM STA (12:34)
--- NOTE | 2023-11-10 12:41 | ED ---
General Adult HPI - General Chief complaint: Urogenital Stated complaint: difficulty urinating Time Seen by Provider: 11/10/23 11:42 Source: patient, RN notes reviewed Mode of arrival: ambulatory Limitations: no limitations - History of Present Illness Initial comments: 78-year-old male presents emergency Department chief complaint of urinary retention. Patient states is unable to urinate. Patient states he has extreme lower abdominal pressure. Patient states that he's had issues like this in the past and states that he's had some urinary tract infections. Patient sees Dr. Cheek states that he's had prostate surgery. Patient states she's had issues with catheter is being placed in the past. Patient denies any fevers. - Related Data Home Medications Medication Instructions Recorded Confirmed Potassium Chloride [Klor-Con M10] 10 meq PO DAILY 12/31/22 10/16/23 Furosemide [Lasix] 20 mg PO DAILY 10/20/23 10/20/23 Metoprolol Tartrate [Lopressor] 25 mg PO DAILY 10/20/23 10/20/23 amLODIPine [Norvasc] 5 mg PO DAILY 10/20/23 10/20/23 Previous Rx's Medication Instructions Recorded Cyclobenzaprine [Flexeril] 5 mg PO BID PRN #20 tablet 10/20/23 Amoxic-Pot Clav 875-125Mg 1 tab PO Q12HR 7 Days #20 tab 10/23/23 [Augmentin 875-125] Gabapentin [Neurontin] 400 mg PO TID #7 cap 10/23/23 Pantoprazole [Protonix] 40 mg PO AC-BRKFST tab 10/23/23 Sennosides [Senokot] 8.6 mg PO DAILY tab 10/23/23 polyethylene glycoL 3350 [Miralax] 17 gm PO DAILY PRN packet 10/23/23 Nitrofurantoin Monohyd/M-Cryst 100 mg PO Q12HR #14 cap 11/10/23 [Macrobid] Allergies Allergy/AdvReac Type Severity Reaction Status Date / Time Penicillins Allergy Anaphylaxis Verified 11/10/23 11:41 Review of Systems ROS Statement: Those systems with pertinent positive or pertinent negative responses have been documented in the HPI. ROS Other: All systems not noted in ROS Statement are negative. Past Medical History Past Medical History: Hypertension, Sleep Apnea/CPAP/BIPAP Additional Past Medical History / Comment(s): C PAP MACHINE, PROSTATE CANCER, KIDNEY STONES, History of Any Multi-Drug Resistant Organisms: None Reported Past Surgical History: Adenoidectomy, Back Surgery, Orthopedic Surgery, Tonsillectomy Additional Past Surgical History / Comment(s): TOTAL LEFT KNEE-X 2, BUNIONECTOMY RIGHT FOOT, RIGHT HIP REPLACEMENT Past Anesthesia/Blood Transfusion Reactions: No Reported Reaction Additional Past Anesthesia/Blood Transfusion Reaction / Comment(s): Never recieved blood transfusion. Past Psychological History: No Psychological Hx Reported Smoking Status: Former smoker Past Alcohol Use History: Rare Past Drug Use History: None Reported - Past Family History Father Family Medical History: Cancer Additional Family Medical History / Comment(s): BRAIN CANCER. Mother Family Medical History: Cancer Additional Family Medical History / Comment(s): LUNG CANCER. Brother(s) Family Medical History: Cancer Additional Family Medical History / Comment(s): PANCREATIC CANCER. General Exam Limitations: no limitations General appearance: alert, in no apparent distress Head exam: Present: atraumatic, normocephalic, normal inspection Neck exam: Present: normal inspection. Absent: tenderness, meningismus, lymphadenopathy Respiratory exam: Present: normal lung sounds bilaterally. Absent: respiratory distress, wheezes, rales, rhonchi, stridor Cardiovascular Exam: Present: regular rate, normal rhythm, normal heart sounds. Absent: systolic murmur, diastolic murmur, rubs, gallop, clicks GI/Abdominal exam: Present: soft, tenderness, normal bowel sounds. Absent: distended, guarding, rebound, rigid Course Vital Signs 11/10/23 11/10/23 11:39 16:05 Temperature 98.1 F 98.1 F Pulse Rate 65 76 Respiratory 18 16 Rate Blood Pressure 145/91 136/78 O2 Sat by Pulse 97 97 Oximetry Medical Decision Making - Medical Decision Making Was pt. sent in by a medical professional or institution (, PA, CELL SUPPORT OPERATOR, urgent care, hospital, or residential...) When possible be specific @ -No Did you speak to anyone other than the patient for history (EMS, parent, family, police, friend...)? What history was obtained from this source @ -No Did you review nursing and triage notes (agree or disagree)? Why? @ -I reviewed and agree with nursing and triage notes Were old charts reviewed (outside hosp., previous admission, EMS record, old EKG, old radiological studies, urgent care reports/EKG's, residential records)? Report findings @ -Reviewed prior urinary cultures Differential Diagnosis (chest pain, altered mental status, abdominal pain women, abdominal pain men, vaginal bleeding, weakness, fever, dyspnea, syncope, headache, dizziness, GI bleed, back pain, seizure, CVA, palpatations, mental health, musculoskeletal)? @ -Urinary retention, UTI EKG interpreted by me (3pts min.). @ -None X-rays interpreted by me (1pt min.). @ -None done CT interpreted by me (1pt min.). @ -None done U/S interpreted by me (1pt. min.). @ -None done What testing was considered but not performed or refused? (CT, X-rays, U/S, labs)? Why? @ -None What meds were considered but not given or refused? Why? @ -None Did you discuss the management of the patient with other professionals (professionals i.e. , PA, CELL SUPPORT OPERATOR, lab, RT, psych nurse, group social worker, drum dyeing machine operator, teacher, search and rescue officer, case resolution specialist)? Give summary @ -[Dr. Roberto regarding urinary Retention Unable to place Diop catheter. Was smoking cessation discussed for >3mins.? @ -No Was critical care preformed (if so, how long)? @ -No Were there social determinants of health that impacted care today? How? (Homelessness, low income, unemployed, alcoholism, drug addiction, transportation, low edu. Level, literacy, decrease access to med. care, shelter, rehab)? @ -No Was there de-escalation of care discussed even if they declined (Discuss DNR or withdrawal of care, Hospice)? DNR status @ -No What co-morbidities impacted this encounter? (DM, HTN, Smoking, COPD, CAD, Cancer, CVA, ARF, Chemo, Hep., AIDS, mental health diagnosis, sleep apnea, morbid obesity)? @ -None Was patient admitted / discharged? Hospital course, mention meds given and route, prescriptions, significant lab abnormalities, going to OR and other pertinent info. @ -Discharged patient presented for urinary retention. Diop catheter insertion was attempted by RN and myself with no success. This was attempted multiple times. I did contact urology who came and evaluated the patient was able to dilate and insert a Diop catheter. They did request patient to be placed on antibiotics and received Rocephin emergency department. Reviewing prior urinary culture patient did have some sensitivity to Macrobid. Undiagnosed new problem with uncertain prognosis? @ -No Drug Therapy requiring intensive monitoring for toxicity (Heparin, Nitro, Insulin, Cardizem)? @ -No Were any procedures done? @ -No Diagnosis/symptom? @ -Urinary retention Acute, or Chronic, or Acute on Chronic? @ -Acute Uncomplicated (without systemic symptoms) or Complicated (systemic symptoms)? @ -[Uncomplicated Side effects of treatment? @ -No Exacerbation, Progression, or Severe Exacerbation? @ -No Poses a threat to life or bodily function? How? (Chest pain, USA, MA, pneumonia, PE, COPD, DKA, ARF, appy, cholecystitis, CVA, Diverticulitis, Homicidal, Suicidal, threat to staff... and all critical care pts) @ -No - Lab Data Lab Results 11/10/23 Range/Units 13:29 Urine Color Red Urine Appearance Cloudy (Clear) Urine pH 5.5 (5.0-8.0) Ur Specific [place] 1.018 (1.001-1.035) Urine Protein 1+ H (Negative) Urine Glucose (UA) Negative (Negative) Urine Ketones Negative (Negative) Urine Blood Large H (Negative) Urine Nitrite Negative (Negative) Urine Bilirubin Negative (Negative) Urine Urobilinogen <2.0 (<2.0) mg/dL Ur Leukocyte Esterase Moderate H (Negative) Urine RBC >182 H (0-5) /hpf Urine WBC 34 H (0-5) /hpf Disposition Clinical Impression: Urinary retention, History of prostate cancer Disposition: HOME SELF-CARE Condition: Stable Instructions (If sedation given, give patient instructions): Urinary Retention in Men (ED) Additional Instructions: Please return to the Emergency Department if symptoms worsen or any other concerns. Prescriptions: Nitrofurantoin Monohyd/M-Cryst [Macrobid] 100 mg PO Q12HR #14 cap Is patient prescribed a controlled substance at d/c from ED?: No Referrals: [facility],Clinic [Primary Care Provider] - 1-2 days Romeo Cheek MD [STAFF PHYSICIAN] - 1-2 days Time of Disposition: 15:28
[2023-11-10 15:17] LABS: Appearance,Urine Cloudy (Clear); Bilirubin,Urine Negative (Negative); Blood,Urine Large (Negative); Color,Urine Red; Glucose,Urine (UA) Negative (Negative); Ketones,Urine Negative (Negative); Leukocyte Esterase,Urine Moderate (Negative); Nitrite,Urine Negative (Negative); PH, Urine 5.5 (5.0-8.0); Protein,Urine 1+ (Negative); RBC,Urine >182 /hpf (0-5); Specific Gravity,Urine 1.018 (1.001-1.035); Urobilinogen,Urine <2.0 mg/dL (<2.0); WBC,Urine 34 /hpf (0-5)
--- NOTE | 2023-11-10 15:37 | P.GSCN ---
History of Present Illness Consult date: 11/10/23 Reason for Consult: Urinary retention History of present illness: This is a 78-year-old male patient of Dr. Cheek with history of prostate cancer treated with radiation and brachytherapy, has history of recurrent urethral stricture. Presented to the hospital with difficulty voiding, his post residuals greater than 300 mL's. He does have a history of urinary incontinence at baseline, indicated he's only been able to have very small void with significant urgency. He does have history of urethral stricture did require a catheter placement with dilation by Dr. Cheek in March. Denies any dysuria or gross hematuria. Attempt to place a Diop catheter by nursing staff was unsuccessful Review of Systems - Constitutional Denies fever, Denies weight loss - Cardiovascular Denies chest pain, Denies shortness of breath - Respiratory Denies cough, Denies 7 - Gastrointestinal Reports abdominal pain, Denies nausea, Denies vomiting - Genitourinary Denies dysuria, Denies hematuria - Integumentary Denies rash, Denies unusual bruising - Neurological Denies headaches, Denies syncope Past Medical History Past Medical History: Hypertension, Sleep Apnea/CPAP/BIPAP Additional Past Medical History / Comment(s): C PAP MACHINE, PROSTATE CANCER, KIDNEY STONES, History of Any Multi-Drug Resistant Organisms: None Reported Past Surgical History: Adenoidectomy, Back Surgery, Orthopedic Surgery, Tonsillectomy Additional Past Surgical History / Comment(s): TOTAL LEFT KNEE-X 2, BUNIONECTOMY RIGHT FOOT, RIGHT HIP REPLACEMENT Past Anesthesia/Blood Transfusion Reactions: No Reported Reaction Additional Past Anesthesia/Blood Transfusion Reaction / Comm: Never recieved blood transfusion. Past Psychological History: No Psychological Hx Reported Smoking Status: Former smoker Past Alcohol Use History: Rare Past Drug Use History: None Reported - Past Family History Father Family Medical History: Cancer Additional Family Medical History / Comment(s): BRAIN CANCER. Mother Family Medical History: Cancer Additional Family Medical History / Comment(s): LUNG CANCER. Brother(s) Family Medical History: Cancer Additional Family Medical History / Comment(s): PANCREATIC CANCER. Medications and Allergies Home Medications Medication Instructions Recorded Confirmed Type Potassium Chloride [Klor-Con M10] 10 meq PO DAILY 12/31/22 10/16/23 History Cyclobenzaprine [Flexeril] 5 mg PO BID PRN #20 tablet 10/20/23 Rx Furosemide [Lasix] 20 mg PO DAILY 10/20/23 10/20/23 History Metoprolol Tartrate [Lopressor] 25 mg PO DAILY 10/20/23 10/20/23 History amLODIPine [Norvasc] 5 mg PO DAILY 10/20/23 10/20/23 History Amoxic-Pot Clav 875-125Mg 1 tab PO Q12HR 7 Days #20 tab 10/23/23 Rx [Augmentin 875-125] Gabapentin [Neurontin] 400 mg PO TID #7 cap 10/23/23 Rx Pantoprazole [Protonix] 40 mg PO AC-BRKFST tab 10/23/23 Rx Sennosides [Senokot] 8.6 mg PO DAILY tab 10/23/23 Rx polyethylene glycoL 3350 [Miralax] 17 gm PO DAILY PRN packet 10/23/23 Rx Nitrofurantoin Monohyd/M-Cryst 100 mg PO Q12HR #14 cap 11/10/23 Rx [Macrobid] Allergies Allergy/AdvReac Type Severity Reaction Status Date / Time Penicillins Allergy Anaphylaxis Verified 11/10/23 11:41 Surgical - Exam Vital Signs Temp Pulse Resp BP Pulse Ox 98.1 F 65 18 145/91 97 11/10/23 11:39 11/10/23 11:39 11/10/23 11:39 11/10/23 11:39 11/10/23 11:39 - General no distress, no pain - Eyes normal ocular movement, no pale - ENT normal nares, normal mucosa - Respiratory normal expansion, normal respiratory effort - Abdomen Abdomen: soft, non tender - Genitourinary normal penis with no external lesions, testicles present - Psychiatric oriented to time, oriented to person, oriented to place Results - Labs Abnormal Lab Results - Last 24 Hours (Table) 11/10/23 Range/Units 13:29 Urine Protein 1+ H (Negative) Urine Blood Large H (Negative) Ur Leukocyte Esterase Moderate H (Negative) Urine RBC >182 H (0-5) /hpf Urine WBC 34 H (0-5) /hpf Assessment and Plan Assessment: 78-year-old male with history of urethral stricture. Residual hospital with urinary retention. -I was able to place a 14-German silicone catheter after dilating the stricture using the S-shaped dilators, please see procedure note for details -Recommend discharging home with antibiotics, can follow-up as an outpatient with Dr. Henderson in 1 week
--- NOTE | 2023-11-10 15:40 | P.PCN ---
Date of Procedure: 11/10/23 Preoperative Diagnosis: Urethral stricture Postoperative Diagnosis: same Procedure(s) Performed: Dilation of urethral stricture, Diop catheter placement, irrigation Pathology: none sent Indications for Procedure: This is 78-year-old male with history of urethral stricture, unable to place a Diop catheter secondary to his urethral stricture Description of Procedure: Patient penis was prepped with Betadine, after that I placed a 0.35 Glidewire, there was some difficulty manipulating the wire past the stricture but I was able to advance the wire into the bladder. Using the S-shaped dilators starting from 12-Uzbek and going all the way up to 18-Uzbek and was able to place the dilators over the wire and the stricture was dilated without difficulties. Next a 14-Uzbek silicone catheter was passed over the wire and into the bladder with the return of clear urine. Catheter was irrigated without any difficulties. Patient tolerated the procedure well
[2023-11-10] MEDS ORDERED: cefTRIAXone 1,000 MG VIAL (IM USE) IM STA (15:45)
[2023-11-10 16:15] VITALS: BP 136/78; PULSE 76; RESP 16
== END 2023-11-10 16:08 | disposition home or self-care (01) ==
LOC: EC 11:31
DX: N35.919 Unspecified urethral stricture, male, unspecified site (principal); R33.9 Retention of urine, unspecified; I10 Essential (primary) hypertension; Z79.899 Other long term (current) drug therapy; Z88.0 Allergy status to penicillin; Z85.46 Personal history of malignant neoplasm of prostate; Z87.891 Personal history of nicotine dependence
CPT/HCPCS: 51702; 99285; 96372 ×2; 51798; 81001; 87086; J0696; J1170

== ENCOUNTER 2023-11-11 04:05 | Emergency (ER) | payer MEDICARE ==
--- NOTE | 2023-11-11 04:25 | ED ---
General Adult HPI - General Chief complaint: Urogenital Stated complaint: Urine retention Time Seen by Provider: 11/11/23 04:12 Source: patient, RN notes reviewed, old records reviewed Mode of arrival: ambulatory Limitations: no limitations - History of Present Illness Initial comments: 78 old male presents with urinary retention. Patient had catheter placed yesterday afternoon by urology due to urethral stricture. Patient states that there is been no urine output into the bag since the procedure was performed. He has lower abdominal pain and discomfort. - Related Data Home Medications Medication Instructions Recorded Confirmed Potassium Chloride [Klor-Con M10] 10 meq PO DAILY 12/31/22 10/16/23 Furosemide [Lasix] 20 mg PO DAILY 10/20/23 10/20/23 Metoprolol Tartrate [Lopressor] 25 mg PO DAILY 10/20/23 10/20/23 amLODIPine [Norvasc] 5 mg PO DAILY 10/20/23 10/20/23 Previous Rx's Medication Instructions Recorded Cyclobenzaprine [Flexeril] 5 mg PO BID PRN #20 tablet 10/20/23 Amoxic-Pot Clav 875-125Mg 1 tab PO Q12HR 7 Days #20 tab 10/23/23 [Augmentin 875-125] Gabapentin [Neurontin] 400 mg PO TID #7 cap 10/23/23 Pantoprazole [Protonix] 40 mg PO AC-BRKFST tab 10/23/23 Sennosides [Senokot] 8.6 mg PO DAILY tab 10/23/23 polyethylene glycoL 3350 [Miralax] 17 gm PO DAILY PRN packet 10/23/23 Nitrofurantoin Monohyd/M-Cryst 100 mg PO Q12HR #14 cap 11/10/23 [Macrobid] Allergies Allergy/AdvReac Type Severity Reaction Status Date / Time Penicillins Allergy Anaphylaxis Verified 11/10/23 11:41 Review of Systems ROS Statement: Those systems with pertinent positive or pertinent negative responses have been documented in the HPI. ROS Other: All systems not noted in ROS Statement are negative. Past Medical History Past Medical History: Hypertension, Sleep Apnea/CPAP/BIPAP Additional Past Medical History / Comment(s): C PAP MACHINE, PROSTATE CANCER, KIDNEY STONES, History of Any Multi-Drug Resistant Organisms: None Reported Past Surgical History: Adenoidectomy, Back Surgery, Orthopedic Surgery, Tonsillectomy Additional Past Surgical History / Comment(s): TOTAL LEFT KNEE-X 2, BUNIONECTOMY RIGHT FOOT, RIGHT HIP REPLACEMENT Past Anesthesia/Blood Transfusion Reactions: No Reported Reaction Additional Past Anesthesia/Blood Transfusion Reaction / Comment(s): Never recieved blood transfusion. Past Psychological History: No Psychological Hx Reported Smoking Status: Former smoker Past Alcohol Use History: Rare Past Drug Use History: None Reported - Past Family History Father Family Medical History: Cancer Additional Family Medical History / Comment(s): BRAIN CANCER. Mother Family Medical History: Cancer Additional Family Medical History / Comment(s): LUNG CANCER. Brother(s) Family Medical History: Cancer Additional Family Medical History / Comment(s): PANCREATIC CANCER. General Exam Limitations: no limitations General appearance: alert, anxious Head exam: Present: atraumatic, normocephalic Eye exam: Present: normal appearance, PERRL ENT exam: Present: normal exam Neck exam: Present: normal inspection. Absent: tenderness, meningismus Respiratory exam: Present: normal lung sounds bilaterally. Absent: respiratory distress Cardiovascular Exam: Present: normal rhythm, tachycardia GI/Abdominal exam: Present: soft, distended, tenderness Extremities exam: Present: normal inspection, normal capillary refill Neurological exam: Present: alert, oriented X3 Psychiatric exam: Present: anxious Skin exam: Present: warm, dry, intact Course Vital Signs 11/11/23 04:07 Temperature 97.8 F Pulse Rate 111 H Respiratory 20 Rate Blood Pressure 135/90 O2 Sat by Pulse 94 L Oximetry Medical Decision Making - Medical Decision Making Was pt. sent in by a medical professional or institution (, PA, E LEARNING MANAGER, urgent care, hospital, or group home...) When possible be specific @ -No Did you speak to anyone other than the patient for history (EMS, parent, family, police, friend...)? What history was obtained from this source @ -No Did you review nursing and triage notes (agree or disagree)? Why? @ -I reviewed and agree with nursing and triage notes Were old charts reviewed (outside hosp., previous admission, EMS record, old EKG, old radiological studies, urgent care reports/EKG's, group home records)? Report findings @ -No old charts were reviewed Differential Diagnosis (chest pain, altered mental status, abdominal pain women, abdominal pain men, vaginal bleeding, weakness, fever, dyspnea, syncope, headache, dizziness, GI bleed, back pain, seizure, CVA, palpatations, mental health, musculoskeletal)? @Cleated Diop catheter, hematuria EKG interpreted by me (3pts min.). @ -As above X-rays interpreted by me (1pt min.). @ -None done CT interpreted by me (1pt min.). @ -None done U/S interpreted by me (1pt. min.). @ -None done What testing was considered but not performed or refused? (CT, X-rays, U/S, labs)? Why? @ -None What meds were considered but not given or refused? Why? @ -None Did you discuss the management of the patient with other professionals (professionals i.e. , PA, E LEARNING MANAGER, lab, RT, psych nurse, social media marketer, cap and hat production supervisor, teacher, reserve officer, senior case manager)? Give summary @ -No Was smoking cessation discussed for >3mins.? @ -No Was critical care preformed (if so, how long)? @ -No Were there social determinants of health that impacted care today? How? (Homelessness, low income, unemployed, alcoholism, drug addiction, transportation, low edu. Level, literacy, decrease access to med. care, fci, rehab)? @ -No Was there de-escalation of care discussed even if they declined (Discuss DNR or withdrawal of care, Hospice)? DNR status @ -No What co-morbidities impacted this encounter? (DM, HTN, Smoking, COPD, CAD, Cancer, CVA, ARF, Chemo, Hep., AIDS, mental health diagnosis, sleep apnea, morbid obesity)? @ -Urinary retention Was patient admitted / discharged? Hospital course, mention meds given and route, prescriptions, significant lab abnormalities, going to OR and other pertinent info. @ -78-year-old male with occluded catheter. Catheter was placed within the last 24 hours by urology. I was able to flush out several large clots in the emergency department, I irrigated with normal saline until urine was clear. She has been prescribed antibiotics and these are waiting at the pharmacy. He is able to contact urology this morning for close outpatient follow-up. Undiagnosed new problem with uncertain prognosis? @ -No Drug Therapy requiring intensive monitoring for toxicity (Heparin, Nitro, Insulin, Cardizem)? @ -No Were any procedures done? @ -No Diagnosis/symptom? @ -[Occluded Diop catheter Acute, or Chronic, or Acute on Chronic? @ -Acute Uncomplicated (without systemic symptoms) or Complicated (systemic symptoms)? @ -default Side effects of treatment? @ -No Exacerbation, Progression, or Severe Exacerbation? @ -No Poses a threat to life or bodily function? How? (Chest pain, [place], [place], pneumonia, PE, COPD, DKA, ARF, appy, cholecystitis, CVA, Diverticulitis, Homicidal, Suicidal, threat to staff... and all critical care pts) @ -No Disposition Clinical Impression: Urinary retention Disposition: HOME SELF-CARE Condition: Good Instructions (If sedation given, give patient instructions): Urinary Retention in Men (ED) Is patient prescribed a controlled substance at d/c from ED?: No Referrals: [facility] [Primary Care Provider] - 1-2 days Niko Roberto MD [STAFF PHYSICIAN] - 1-2 days Time of Disposition: 05:44
[2023-11-11] MEDS ORDERED: MORPHINE SULFATE 4 MG/ML SYRINGE IM STA (04:34)
[2023-11-11 07:25] VITALS: BP 127/89; PULSE 87; RESP 19; TEMP 97.9
== END 2023-11-11 06:54 | disposition home or self-care (01) ==
LOC: EC 04:05
DX: R33.9 Retention of urine, unspecified (principal); I10 Essential (primary) hypertension; G47.30 Sleep apnea, unspecified; Z88.0 Allergy status to penicillin; Z87.891 Personal history of nicotine dependence; Z79.899 Other long term (current) drug therapy
CPT/HCPCS: 99283; 96372; J2270

== ENCOUNTER → 2023-12-15 | Outpatient (CLI) | payer MEDICARE, OTHER ==
--- NOTE | 2023-12-15 13:28 | P.PN ---
Subjective DATE: 03/29/2024 FOLLOW UP VISIT. Patient with obstructive sleep apnea hypopnea syndrome return to sleep center for follow-up visit. Information from previous visit have been reviewed. Patient is using PAP equipment every night for the whole night, getting PAP supplies in time. The patient does not have significant problems with the mask, PAP unit and humidification. [place] sleepiness scale is significantly increased to 18. I checked information from PAP unit. PAP unit pressure 8 cm H2O. Usage is 100 % for more then 4 hours, average 6.9 hours per night. Leak is 11 l/m, which is in acceptable range. Apnea Hypopnea Index is 2.6, which is normal. MEDICATIONS:1. Gabapentin 400 mg 4 times a day 2. Amlodipine 5 mg once a day 3. Metoprolol 25 mg once a day 4. Furosemide 20 mg once a day 5. Donepezil During physical exam: GENERAL: A pleasant patient without any distress. VITAL SIGNS: BP 130/87, HR 66, RR 16 , weight 269, temperature 97.6, oxygen saturation at room air 95 % . HEENT: PERRLA, EOMI.low position of soft palate, Mallapati 3 . NECK: Supple. No JVD. LUNGS: Clear to percussion and to auscultation. Good air exchange. No wheezing or rhonchi. HEART: S1, S2 regular. ABDOMEN: Soft and nontender. Obese EXTREMITIES: No clubbing or cyanosis. WELLNESS CONSULTANT: Awake, alert, and oriented x3. No focal deficit. Impressions: 1. Obstructive sleep apnea-hypopnea syndrome. Patient demonstrated great compliance with treatment, benefiting from treatment. 2. Obesity, body mass index 44.7, patient increased weight of 8 pounds comparing with previous visit. 3. Hypertension. 4. History of prostate cancer, status post radiation therapy. 5. Status post right hip replacement in December 2022. 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 7. Status post left knee replacement. 8. History of kidney stones, status post surgical treatment in 2021. 9. Status post back surgery. Plan: 1. Continue using PAP equipment every night for the whole night. 2. To change air filter at least 1-2 times per month. 3. PAP unit should stay lower then position of the head. 4. Advised patient to remove all remaining water from humidifier canister daily and make it dry after each usage. Refill canister with fresh distilled water before each usage. 5. Sleep hygiene with regular time in bed for at least 8 hours. 6. Precautions related to driving. No driving if feel any sleepiness. 7. I will maintain prescription for PAP supplies including mask, tube, filters. 8. Follow up visit in 6 months or earlier if patient has any problems. 9. Watching and losing weight. Thank you very much for allowing me to participate in the management of your patient. Edvin Singh MD, PhD, FAASM. Diplomat of [place] [employer], Sleep Medicine Board by [place] [employer] Assistant Infant Teacher of [facility] [place]
== END ==
LOC: MERGE 10-29 14:40 → 3 N SLEEP 10:25
PROVIDERS: ATTEND Internal Medicine
DX: G47.33 Obstructive sleep apnea (adult) (pediatric) (principal); E66.9 Obesity, unspecified; I10 Essential (primary) hypertension; G62.9 Polyneuropathy, unspecified; Z85.46 Personal history of malignant neoplasm of prostate; Z87.442 Personal history of urinary calculi; Z92.3 Personal history of irradiation; Z96.652 Presence of left artificial knee joint; Z96.641 Presence of right artificial hip joint; Z68.41 Body mass index [BMI] 40.0-44.9, adult; Z79.899 Other long term (current) drug therapy; Z99.89 Dependence on other enabling machines and devices; Z98.890 Other specified postprocedural states; Z88.0 Allergy status to penicillin
CPT/HCPCS: 99212

== ENCOUNTER 2024-04-19 07:59 | Observation (INO) | payer MEDICARE ==
--- NOTE | 2024-04-19 08:28 | ED ---
General Adult HPI - General Chief complaint: Fall Stated complaint: Both Leg Weakness Time Seen by Provider: 04/19/24 08:09 Source: patient, family, RN notes reviewed Mode of arrival: wheelchair Limitations: no limitations - History of Present Illness Initial comments: Patient is a 79-year-old male present to the emergency department with concerns with general weakness. Onset of symptoms was just this morning. Patient was feeling fine yesterday. No isolated area of weakness. Patient feels a little bit weak all over. Patient did have a small fall without injury. No confusion. Patient does have mild rhinorrhea and congestion and cough which he attributes to allergies. Patient does have history of similar symptoms previously associated with urinary tract infection. Patient has chronic urinary incontinence which is unchanged from normal. - Related Data Home Medications Medication Instructions Recorded Confirmed Potassium Chloride [Klor-Con M10] 10 meq PO DAILY 12/31/22 10/16/23 Furosemide [Lasix] 20 mg PO DAILY 10/20/23 10/20/23 Metoprolol Tartrate [Lopressor] 25 mg PO DAILY 10/20/23 10/20/23 amLODIPine [Norvasc] 5 mg PO DAILY 10/20/23 10/20/23 Previous Rx's Medication Instructions Recorded Cyclobenzaprine [Flexeril] 5 mg PO BID PRN #20 tablet 10/20/23 Amoxic-Pot Clav 875-125Mg 1 tab PO Q12HR 7 Days #20 tab 10/23/23 [Augmentin 875-125] Gabapentin [Neurontin] 400 mg PO TID #7 cap 10/23/23 Pantoprazole [Protonix] 40 mg PO AC-BRKFST tab 10/23/23 Sennosides [Senokot] 8.6 mg PO DAILY tab 10/23/23 polyethylene glycoL 3350 [Miralax] 17 gm PO DAILY PRN packet 10/23/23 Nitrofurantoin Monohyd/M-Cryst 100 mg PO Q12HR #14 cap 11/10/23 [Macrobid] Allergies Allergy/AdvReac Type Severity Reaction Status Date / Time Penicillins Allergy Anaphylaxis Verified 04/19/24 08:09 Review of Systems ROS Statement: Those systems with pertinent positive or pertinent negative responses have been documented in the HPI. ROS Other: All systems not noted in ROS Statement are negative. Constitutional: Denies: fever Eyes: Denies: eye pain ENT: Denies: ear pain Respiratory: Reports: as per HPI Cardiovascular: Denies: chest pain Endocrine: Reports: fatigue Gastrointestinal: Denies: abdominal pain Genitourinary: Reports: as per HPI Musculoskeletal: Denies: back pain Skin: Denies: rash Neurological: Reports: as per HPI Past Medical History Past Medical History: Hypertension, Sleep Apnea/CPAP/BIPAP Additional Past Medical History / Comment(s): C PAP MACHINE, PROSTATE CANCER, KIDNEY STONES, History of Any Multi-Drug Resistant Organisms: None Reported Past Surgical History: Adenoidectomy, Back Surgery, Orthopedic Surgery, Tonsillectomy Additional Past Surgical History / Comment(s): TOTAL LEFT KNEE-X 2, BUNIONECTOMY RIGHT FOOT, RIGHT HIP REPLACEMENT Past Anesthesia/Blood Transfusion Reactions: No Reported Reaction Additional Past Anesthesia/Blood Transfusion Reaction / Comment(s): Never recieved blood transfusion. Past Psychological History: No Psychological Hx Reported Smoking Status: Former smoker Past Alcohol Use History: Rare Past Drug Use History: None Reported - Past Family History Father Family Medical History: Cancer Additional Family Medical History / Comment(s): BRAIN CANCER. Mother Family Medical History: Cancer Additional Family Medical History / Comment(s): LUNG CANCER. Brother(s) Family Medical History: Cancer Additional Family Medical History / Comment(s): PANCREATIC CANCER. General Exam Limitations: no limitations General appearance: alert, in no apparent distress Head exam: Present: normocephalic Eye exam: Present: normal appearance ENT exam: Present: normal oropharynx Neck exam: Present: normal inspection Respiratory exam: Present: normal lung sounds bilaterally. Absent: respiratory distress, wheezes, rales Cardiovascular Exam: Present: regular rate, normal rhythm GI/Abdominal exam: Present: soft. Absent: tenderness Extremities exam: Present: normal inspection, full ROM Neurological exam: Present: alert, oriented X3, CN II-XII intact. Absent: motor sensory deficit Expanded Neurological exam: Present: protecting the airway Speech: Present: fluid speech Motor strength exam: RUE: 5, LUE: 5, RLE: 5, LLE: 5 Eye Response: (4) open spontaneously Motor Response: (6) obeys commands Verbal Response: (5) oriented Psychiatric exam: Present: normal affect, normal mood Skin exam: Present: normal color Course Vital Signs 06/10/24 08:02 Temperature 99.8 F H Pulse Rate 100 Respiratory 18 Rate Blood Pressure 126/78 O2 Sat by Pulse 95 Oximetry Medical Decision Making - Medical Decision Making Was pt. sent in by a medical professional or institution (, YES[facility], DOCUMENT REVIEW SPECIALIST, urgent care, hospital, or prison...) When possible be specific @ -No Did you speak to anyone other than the patient for history (EMS, parent, family, police, friend...)? What history was obtained from this source @ - is present and helps confirm symptoms that happened earlier today Did you review nursing and triage notes (agree or disagree)? Why? @ -I reviewed and agree with nursing and triage notes Were old charts reviewed (outside hosp., previous admission, EMS record, old EKG, old radiological studies, urgent care reports/EKG's, prison records)? Report findings @ -No old charts were reviewed Differential Diagnosis (chest pain, altered mental status, abdominal pain women, abdominal pain men, vaginal bleeding, weakness, fever, dyspnea, syncope, headache, dizziness, GI bleed, back pain, seizure, CVA, palpatations, mental health, musculoskeletal)? @ -Differential Weakness: Hypoglycemia, shock, sepsis, hyponatremia, anemia, infection, AR, ETOH, adverse medicine reaction, overdose, stroke, this is not meant to be an all-inclusive list. EKG interpreted by me (3pts min.). @ -As above X-rays interpreted by me (1pt min.). @ -Chest x-ray shows right-sided infiltrate CT interpreted by me (1pt min.). @ -None done U/S interpreted by me (1pt. min.). @ -None done What testing was considered but not performed or refused? (CT, X-rays, U/S, labs)? Why? @ -None What meds were considered but not given or refused? Why? @ -None Did you discuss the management of the patient with other professionals (professionals i.e. , [facility], DOCUMENT REVIEW SPECIALIST, lab, RT, psych nurse, secondary social studies teacher, tray drier operator, teacher, dairy quality assurance officer, case management coordinator)? Give summary @ -Case discussed with Dr. Cavazos who will admit covering for this [facility]. Was smoking cessation discussed for >3mins.? @ -No Was critical care preformed (if so, how long)? @ -31 minutes critical care time Were there social determinants of health that impacted care today? How? (Homelessness, low income, unemployed, alcoholism, drug addiction, transportation, low edu. Level, literacy, decrease access to med. care, [facility], rehab)? @ -No Was there de-escalation of care discussed even if they declined (Discuss DNR or withdrawal of care, Hospice)? DNR status @ -No What co-morbidities impacted this encounter? (DM, HTN, Smoking, COPD, CAD, Cancer, CVA, ARF, Chemo, Hep., AIDS, mental health diagnosis, sleep apnea, morbid obesity)? @ -None Was patient admitted / discharged? Hospital course, mention meds given and route, prescriptions, significant lab abnormalities, going to OR and other pertinent info. @ -Patient presents with weakness, increase in temperature and some upper respiratory symptoms. Chest x-ray shows pneumonia. There is concern for sepsis diagnosed at 10:40 AM. Blood culture and lactic acid and IV antibiotics will be added. Admission orders written. Undiagnosed new problem with uncertain prognosis? @ -No Drug Therapy requiring intensive monitoring for toxicity (Heparin, Nitro, Insulin, Cardizem)? @ -No Were any procedures done? @ -No Diagnosis/symptom? @ -Pneumonia, sepsis Acute, or Chronic, or Acute on Chronic? @ -Acute, acute Uncomplicated (without systemic symptoms) or Complicated (systemic symptoms)? @ -Default Side effects of treatment? @ -No Exacerbation, Progression, or Severe Exacerbation? @ -No Poses a threat to life or bodily function? How? (Chest pain, USA, AR, pneumonia, PE, COPD, DKA, ARF, appy, cholecystitis, CVA, Diverticulitis, Homicidal, Suicidal, threat to staff... and all critical care pts) @ -No - Lab Data Result diagrams: 04/19/24 08:40 04/19/24 08:40 Lab Results 04/19/24 04/19/24 04/19/24 Range/Units 08:40 08:40 08:40 WBC 15.1 H (3.8-10.6) k/uL RBC 5.03 (4.30-5.90) m/uL Hgb 14.8 (13.0-17.5) gm/dL Hct 47.3 (39.0-53.0) % MCV 94.1 (80.0-100.0) fL MCH 29.5 (25.0-35.0) pg MCHC 31.4 (31.0-37.0) g/dL RDW 14.4 (11.5-15.5) % Plt Count 224 (150-450) k/uL MPV 7.5 Neutrophils % 89 % Lymphocytes % 4 % Monocytes % 4 % Eosinophils % 1 % Basophils % 0 % Neutrophils # 13.4 H (1.3-7.7) k/uL Lymphocytes # 0.7 L (1.0-4.8) k/uL Monocytes # 0.5 (0-1.0) k/uL Eosinophils # 0.1 (0-0.7) k/uL Basophils # 0.0 (0-0.2) k/uL PT 11.0 (10.0-12.5) sec INR 1.0 (<1.2) APTT 25.9 (22.0-30.0) sec Sodium (137-145) mmol/L Potassium (3.5-5.1) mmol/L Chloride (98-107) mmol/L Carbon Dioxide (22-30) mmol/L Anion Gap mmol/L BUN (9-20) mg/dL Creatinine (0.66-1.25) mg/dL Est GFR (CKD-EPI)AfAm (>60 ml/min/1.73 sqM) Est GFR (CKD-EPI)NonAf (>60 ml/min/1.73 sqM) Glucose (74-99) mg/dL Plasma Lactic Acid [place] (0.7-2.0) mmol/L Calcium (8.4-10.2) mg/dL Magnesium (1.6-2.3) mg/dL Total Bilirubin (0.2-1.3) mg/dL AST (17-59) U/L ALT (4-49) U/L Alkaline Phosphatase (38-126) U/L Total Protein (6.3-8.2) g/dL Albumin (3.5-5.0) g/dL Urine Color Colorless Urine Appearance Clear (Clear) Urine pH 6.5 (5.0-8.0) Ur Specific [place] 1.012 (1.001-1.035) Urine Protein Negative (Negative) Urine Glucose (UA) Negative (Negative) Urine Ketones 1+ H (Negative) Urine Blood Small H (Negative) Urine Nitrite Negative (Negative) Urine Bilirubin Negative (Negative) Urine Urobilinogen <2.0 (<2.0) mg/dL Ur Leukocyte Esterase Negative (Negative) Urine RBC 10 H (0-5) /hpf Urine WBC 3 (0-5) /hpf Urine Bacteria Rare H (None) /hpf Influenza Type A (PCR) (Not Detectd) Influenza Type B (PCR) (Not Detectd) RSV (PCR) (Not Detectd) SARS-CoV-2 (PCR) (Not Detectd) 04/19/24 04/19/24 04/19/24 Range/Units 08:40 08:40 08:40 WBC (3.8-10.6) k/uL RBC (4.30-5.90) m/uL Hgb (13.0-17.5) gm/dL Hct (39.0-53.0) % MCV (80.0-100.0) fL MCH (25.0-35.0) pg MCHC (31.0-37.0) g/dL RDW (11.5-15.5) % Plt Count (150-450) k/uL MPV Neutrophils % % Lymphocytes % % Monocytes % % Eosinophils % % Basophils % % Neutrophils # (1.3-7.7) k/uL Lymphocytes # (1.0-4.8) k/uL Monocytes # (0-1.0) k/uL Eosinophils # (0-0.7) k/uL Basophils # (0-0.2) k/uL PT (10.0-12.5) sec INR (<1.2) APTT (22.0-30.0) sec Sodium 138 (137-145) mmol/L Potassium 4.4 (3.5-5.1) mmol/L Chloride 106 (98-107) mmol/L Carbon Dioxide 29 (22-30) mmol/L Anion Gap 3 mmol/L BUN 18 (9-20) mg/dL Creatinine 0.79 (0.66-1.25) mg/dL Est GFR (CKD-EPI)AfAm >90 (>60 ml/min/1.73 sqM) Est GFR (CKD-EPI)NonAf 86 (>60 ml/min/1.73 sqM) Glucose 127 H (74-99) mg/dL Plasma Lactic Acid [place] 1.0 (0.7-2.0) mmol/L Calcium 8.9 (8.4-10.2) mg/dL Magnesium 1.7 (1.6-2.3) mg/dL Total Bilirubin 1.3 (0.2-1.3) mg/dL AST 40 (17-59) U/L ALT 24 (4-49) U/L Alkaline Phosphatase 76 (38-126) U/L Total Protein 6.8 (6.3-8.2) g/dL Albumin 4.2 (3.5-5.0) g/dL Urine Color Urine Appearance (Clear) Urine pH (5.0-8.0) Ur Specific [place] (1.001-1.035) Urine Protein (Negative) Urine Glucose (UA) (Negative) Urine Ketones (Negative) Urine Blood (Negative) Urine Nitrite (Negative) Urine Bilirubin (Negative) Urine Urobilinogen (<2.0) mg/dL Ur Leukocyte Esterase (Negative) Urine RBC (0-5) /hpf Urine WBC (0-5) /hpf Urine Bacteria (None) /hpf Influenza Type A (PCR) Not Detected (Not Detectd) Influenza Type B (PCR) Not Detected (Not Detectd) RSV (PCR) Not Detected (Not Detectd) SARS-CoV-2 (PCR) Not Detected (Not Detectd) Critical Care Time Critical Care Time: Yes Disposition Clinical Impression: Sepsis, Pneumonia Disposition: ADMITTED IP TO THIS HOSP Is patient prescribed a controlled substance at d/c from ED?: No Referrals: [facility],Clinic [Primary Care Provider] - 1-2 days Time of Disposition: 10:45
--- NOTE | 2024-04-19 09:14 | XR ---
EXAMINATION TYPE: XR chest 2V DATE OF EXAM: 04/19/2024 COMPARISON: 10/16/2023 HISTORY: Shortness of breath TECHNIQUE: Frontal and lateral views of the chest are obtained. FINDINGS: Scattered senescent parenchymal changes noted. Hyperinflation compatible with COPD. Patchy density right lower lobe may reflect developing infiltrate. Correlate clinically and progress studies recommended. Heart size is stable. Mediastinal structures are stable and grossly unremarkable. No evidence for hilar prominence. Degenerative changes dorsal spine. IMPRESSION: 1. Patchy density right lower lobe may reflect developing infiltrate. Correlate clinically and progre ss studies recommended.
[2024-04-19] MEDS: ACETAMINOPHEN TAB 500 MG TAB PO STA (09:35)
[2024-04-19 09:53] LABS: Basophils % (A) 0 %; Eosinophils # (A) 0.1 k/uL (0-0.7); Eosinophils % (A) 1 %; HCT 47.3 % (39.0-53.0); HGB 14.8 gm/dL (13.0-17.5); Lymphocytes # (A) 0.7 k/uL (1.0-4.8); Lymphocytes % (A) 4 %; MCH 29.5 pg (25.0-35.0); MCHC 31.4 g/dL (31.0-37.0); MCV 94.1 fL (80.0-100.0); Mean Platelet Volume 7.5; Monocytes # (A) 0.5 k/uL (0-1.0); Monocytes % (A) 4 %; Neutrophils # (A) 13.4 k/uL (1.3-7.7); Neutrophils % (A) 89 %; Platelet Count 224 k/uL (150-450); RBC 5.03 m/uL (4.30-5.90); RDW 14.4 % (11.5-15.5); WBC 15.1 k/uL (3.8-10.6)
[2024-04-19 10:02] LABS: Partial Thromboplastin Time 25.9 sec (22.0-30.0)
[2024-04-19 10:05] LABS: Appearance,Urine Clear (Clear); Bacteria,Urine Rare /hpf; Bilirubin,Urine Negative (Negative); Blood,Urine Small (Negative); Color,Urine Colorless; Glucose,Urine (UA) Negative (Negative); Ketones,Urine 1+ (Negative); Leukocyte Esterase,Urine Negative (Negative); Nitrite,Urine Negative (Negative); PH, Urine 6.5 (5.0-8.0); Protein,Urine Negative (Negative); RBC,Urine 10 /hpf (0-5); Specific Gravity,Urine 1.012 (1.001-1.035); Urobilinogen,Urine <2.0 mg/dL (<2.0); WBC,Urine 3 /hpf (0-5)
[2024-04-19 10:09] LABS: ALT 24 U/L (4-49); African American GFR (CKD) >90 (>60 ml/min/1.73 sqM); Albumin 4.2 g/dL (3.5-5.0); Anion Gap 3 mmol/L; Blood Urea Nitrogen 18 mg/dL (9-20); Calcium 8.9 mg/dL (8.4-10.2); Carbon Dioxide 29 mmol/L (22-30); Chloride 106 mmol/L (98-107); Glucose 127 mg/dL (74-99); Non-African American GFR(CKD) 86 (>60 ml/min/1.73 sqM); Sodium 138 mmol/L (137-145); Total Bilirubin 1.3 mg/dL (0.2-1.3); Total Protein 6.8 g/dL (6.3-8.2)
[2024-04-19 10:19] LABS: AST 40 U/L (17-59); Alkaline Phosphatase 76 U/L (38-126); Magnesium 1.7 mg/dL (1.6-2.3); Potassium 4.4 mmol/L (3.5-5.1)
[2024-04-19] MEDS ORDERED: PNEUMONIA PROTOCOL UTILIZED 1 EACH MISC PO PRN (10:45)
[2024-04-19] MEDS ORDERED: ACETAMINOPHEN TAB 325 MG TAB PO PRN (10:45)
[2024-04-19] MEDS: SODIUM CHLORIDE 0.9% 1,000 ML IV SCH (12:12)
[2024-04-19] MEDS: LEVOFLOXACIN 750MG-D5W PMX 750 MG in DEXTROSE/WATER 1 150ML.BAG IVPB STA (12:13)
--- NOTE | 2024-04-19 13:07 | P.HPIM ---
History of Present Illness H&P Date: 04/19/24 History of Presenting Illness: Patient is a very pleasant 79-year-old male with a past medical history of hypertension and obstructive sleep apnea CPAP dependent nightly. He presented to the emergency department today with a chief complaint of weakness and fall. Patient reports over the past 3 to 4 days he has been experiencing nasal congestion, postnasal drip, sore throat, and nonproductive cough. He reports that he disregarded the symptoms as seasonal allergies but reports today the symptoms were accompanied by generalized weakness patient states this generalized fatigue/weakness resulted in fall at home requiring calling EMS to assist him up from the ground. Patient reports he was walking to the bathroom and he just felt so weak and fatigue his legs just gave out on him. He denies having any injuries in the fall or any complaints of pain just rates overall "my whole body is weak". Patient denies having any fevers, chills, dizziness or lightheadedness, changes in vision or hearing, chest pain, palpitations, shortness of breath, or experiencing any numbness/tingling/weakness/swelling in his extremities. Patient reports baseline chronic urinary frequency. Upon arrival to our hospital, patient underwent evaluation in the emergency department. Vital signs upon arrival show blood pressure 126/78, heart rate 100, respiratory rate 18, temp 99.8 F, and SpO2 of 95% on room air. Labs completed and reviewed. CBC showing leukocytosis with WBC count of 15.1. Coagulation profile normal findings. BMP unremarkable. Blood glucose 127. Lactic acid 1.0. Magnesium slightly low at 1.7. Liver profile unremarkable. Urinalysis negative for infection. Influenza A, influenza B, RSV, and COVID PCR were all negative. Chest x-ray showing patchy density right lower lobe concerning for developmental infiltrate and hyperinflation compatible with COPD. Review of systems: Pertinent positives and negatives as discussed in HPI, a complete review of systems was performed and all other systems are negative. Physical exam: Vital signs reviewed and stable. General: Nontoxic, no distress and appears stated age. Derm: Skin warm and dry, normal coloration for ethnicity. Head: Atraumatic, normocephalic and symmetric. Eyes: EOMs intact, no lid lag, and anicteric sclera Mouth: no lip lesions, mucus membranes moist Cardiovascular: regular rate and rhythm with normal S1S2, no murmur, positive posterior tibial pulses bilaterally, and cap refill < 2 seconds. Lungs: Respirations even, regular, and unlabored on room air. Lungs slightly diminished otherwise no rhonchi, no rales, no wheezing, and no accessory muscle usage. Abdominal: soft, nontender to palpation, no guarding, no appreciable organomegaly Ext: ROM intact. No gross muscle atrophy, no edema, no contractures Neuro: Speech clear, face symmetrical and CN II-XII grossly intact with no noted focal neuro deficits Psych: Alert and oriented to person, place, time, and situation. Appropriate and pleasant affect. Assessment and Plan of Care: Community acquired pneumonia Generalized weakness, secondary to above -Oxygenation to be administered and titrated as needed to maintain SPO2 equal to or greater than 92% -Telemetry monitoring. -Monitor pulse-oximetry -Duonebs scheduled 4 times daily and as needed for SOB and/or wheezing -Incentive Spirometry -Antibiotics: Continue Levaquin 750 mg daily. -Follow-up on sputum culture, blood culture, and urine Legionella -Obtain EKG for baseline reference. -PT/OT consult placed for evaluation secondary to generalized weakness and fall at home. -Fall Precautions to remain in place. Obstructive sleep apnea -Continue CPAP nightly and while napping. Hypertension -Continue daily medication regimen with amlodipine 5 mg daily and metoprolol 25 mg daily. Data and imaging reviewed: -As stated above in HPI The patient is admitted with an anticipated less than 2 midnight stay for evaluation of community aquired pneumonia CODE STATUS: Full code DVT prophylaxis: Lovenox Anticipated discharge date: 24 to [address]: Home Patient was seen independently by Nurse Practitioner. This document was prepared using [employer] dictation software. Please allow for errors in horse and wagon driver while rare they do occur. I reviewed the documentation as provided by the GAY above, who is the original author of this note. I agree with the documented assessment and plan, with the following changes: none Past Medical History Past Medical History: Hypertension, Sleep Apnea/CPAP/BIPAP Additional Past Medical History / Comment(s): C PAP MACHINE, PROSTATE CANCER, KIDNEY STONES, History of Any Multi-Drug Resistant Organisms: None Reported Past Surgical History: Adenoidectomy, Back Surgery, Orthopedic Surgery, Tonsillectomy Additional Past Surgical History / Comment(s): TOTAL LEFT KNEE-X 2, BUNIONECTOMY RIGHT FOOT, RIGHT HIP REPLACEMENT Past Anesthesia/Blood Transfusion Reactions: No Reported Reaction Additional Past Anesthesia/Blood Transfusion Reaction / Comment(s): Never recieved blood transfusion. Past Psychological History: No Psychological Hx Reported Smoking Status: Former smoker Past Alcohol Use History: Rare Past Drug Use History: None Reported - Past Family History Father Family Medical History: Cancer Additional Family Medical History / Comment(s): BRAIN CANCER. Mother Family Medical History: Cancer Additional Family Medical History / Comment(s): LUNG CANCER. Brother(s) Family Medical History: Cancer Additional Family Medical History / Comment(s): PANCREATIC CANCER. Medications and Allergies Home Medications Medication Instructions Recorded Confirmed Type Potassium Chloride [Klor-Con M10] 10 meq PO DAILY 12/31/22 04/19/24 History Furosemide [Lasix] 20 mg PO DAILY 10/20/23 04/19/24 History Metoprolol Tartrate [Lopressor] 25 mg PO DAILY 10/20/23 04/19/24 History amLODIPine [Norvasc] 5 mg PO DAILY 10/20/23 04/19/24 History Cholecalciferol [Vitamin D3 (125 125 mcg PO DAILY 04/19/24 04/19/24 History Mcg = 5000 Iu)] Donepezil [Aricept] 5 mg PO HS 04/19/24 04/19/24 History Gabapentin [Neurontin] 400 mg PO QID 04/19/24 04/19/24 History Pyridoxine HCl (Vitamin B6) 100 mg PO DAILY 04/19/24 04/19/24 History [Vitamin B-6] Allergies Allergy/AdvReac Type Severity Reaction Status Date / Time Penicillins Allergy Anaphylaxis Verified 04/19/24 10:44 Physical Exam Osteopathic Statement: *. No significant issues noted on an osteopathic structural exam other than those noted in the History and Physical/Consult. Vitals: Vital Signs Temp Pulse Resp BP Pulse Ox 04/19/24 08:02 99.8 F H 100 18 126/78 95 Intake and Output 04/18/24 04/19/24 04/19/24 22:59 06:59 14:59 Output Total 200 Balance -200 Output: Urine 200 Straight 200 Other: Weight 122.47 kg Results CBC & Chem 7: 04/19/24 08:40 04/19/24 08:40 Labs: Abnormal Lab Results - Last 24 Hours (Table) 0604/19/24 04/19/24 Range/Units 08:40 08:40 08:40 WBC 15.1 H (3.8-10.6) k/uL Neutrophils # 13.4 H (1.3-7.7) k/uL Lymphocytes # 0.7 L (1.0-4.8) k/uL Glucose 127 H (74-99) mg/dL Urine Ketones 1+ H (Negative) Urine Blood Small H (Negative) Urine RBC 10 H (0-5) /hpf Urine Bacteria Rare H (None) /hpf
[2024-04-19] MEDS ORDERED: IPRATROPIUM-ALBUTEROL 3 ML NEB INHALATION PRN (13:09)
[2024-04-19] MEDS: IPRATROPIUM-ALBUTEROL 3 ML NEB INHALATION SCH (15:23)
[2024-04-19] MEDS: AZITHROMYCIN 500 MG in SODIUM CHLORIDE 0.9% 250 ML IVPB STA (16:43)
[2024-04-19] MEDS: GABAPENTIN 400 MG CAP PO SCH (16:45)
[2024-04-19] MEDS: DONEPEZIL 5 MG TAB PO SCH (21:58)
[2024-04-20] MEDS: diphenhydrAMINE 25 MG CAP PO STA (02:10)
--- NOTE | 2024-04-20 07:33 | XR ---
EXAMINATION TYPE: XR chest 2V DATE OF EXAM: 04/20/2024 COMPARISON: 04/19/2024 HISTORY: Shortness of breath TECHNIQUE: Frontal and lateral views of the chest are obtained. FINDINGS: Scattered senescent parenchymal changes noted. Hyperinflation compatible with COPD. Patchy basilar density may reflect underlying atelectasis and/or infiltrate. Correlate clinically and progress studies recommended. Heart size is stable. Mediastinal structures are stable and grossly unremarkable. No evidence for hilar prominence. Degenerative changes dorsal spine. IMPRESSION: 1. Patchy basilar density may reflect underlying atelectasis and/or infiltrate. Correlate clinically and progress studies recommended.
[2024-04-20 08:50] VITALS: BP 106/72; TEMP 98.2
[2024-04-20] MEDS ORDERED: POTASSIUM CHLORIDE ER 10 MEQ TAB.ER.PRT PO SCH (09:00)
[2024-04-20] MEDS ORDERED: AZITHROMYCIN 500 MG TAB PO SCH (09:00)
[2024-04-20] MEDS: ENOXAPARIN 40 MG/0.4 ML SYRINGE SQ SCH (09:11)
[2024-04-20] MEDS: CHOLECALCIFEROL 125 MCG (5000 IU) TABLET PO SCH (09:11)
[2024-04-20] MEDS: METOPROLOL TARTRATE 25 MG TAB PO SCH (09:11)
[2024-04-20] MEDS: amLODIPine 5 MG TAB PO SCH (09:12)
[2024-04-20] MEDS: FUROSEMIDE 20 MG TAB PO SCH (09:12)
[2024-04-20] MEDS: PYRIDOXINE 50 MG TAB PO SCH (09:13)
[2024-04-20 10:08] LABS: ALT 18 U/L (4-49); AST 25 U/L (17-59); African American GFR (CKD) >90 (>60 ml/min/1.73 sqM); Albumin 3.7 g/dL (3.5-5.0); Albumin/Globulin Ratio 1.4; Alkaline Phosphatase 73 U/L (38-126); Anion Gap 6 mmol/L; Blood Urea Nitrogen 12 mg/dL (9-20); Calcium 8.6 mg/dL (8.4-10.2); Carbon Dioxide 24 mmol/L (22-30); Chloride 107 mmol/L (98-107); Globulin 2.6 g/dL; Glucose 126 mg/dL (74-99); Magnesium 1.8 mg/dL (1.6-2.3); Non-African American GFR(CKD) 84 (>60 ml/min/1.73 sqM); Potassium 3.5 mmol/L (3.5-5.1); Sodium 137 mmol/L (137-145); Total Bilirubin 1.5 mg/dL (0.2-1.3); Total Protein 6.3 g/dL (6.3-8.2)
[2024-04-20 10:17] LABS: HCT 42.8 % (39.0-53.0); HGB 13.9 gm/dL (13.0-17.5); MCH 30.7 pg (25.0-35.0); MCHC 32.6 g/dL (31.0-37.0); MCV 94.2 fL (80.0-100.0); Mean Platelet Volume 7.8; Platelet Count 208 k/uL (150-450); RBC 4.54 m/uL (4.30-5.90); RDW 14.5 % (11.5-15.5); WBC 11.1 k/uL (3.8-10.6)
[2024-04-20] MEDS: LEVOFLOXACIN 750MG-D5W PMX 750 MG in DEXTROSE/WATER 1 150ML.BAG IVPB SCH (10:41)
[2024-04-20 11:08] VITALS: RESP 16
--- NOTE | 2024-04-20 11:09 | P.DS ---
Providers Date of admission: 04/19/24 10:46 Expected date of discharge: 04/20/24 Attending physician: Jamin Carvalho MD Primary care physician: [facility] Hospital Course: Discharge Diagnosis: Community acquired pneumonia. Received 2-day course of IV antibiotics with Levaquin and being discharged home on an additional 5-day course of Levaquin 750 mg daily to total an antibiotic treatment course of 7 days. Generalized weakness, secondary to above. Resolved. Obstructive sleep apnea. Continue CPAP nightly and while napping. Hypertension. Continue daily medication regimen with amlodipine 5 mg daily and metoprolol 25 mg daily. Hospital Course: Patient is a very pleasant 79-year-old male with a past medical history of hypertension and obstructive sleep apnea CPAP dependent nightly. He presented to the emergency department today with a chief complaint of weakness and fall. Patient reports over the past 3 to 4 days he has been experiencing nasal c ongestion, postnasal drip, sore throat, and nonproductive cough. He reports that he disregarded the symptoms as seasonal allergies but reports today the symptoms were accompanied by generalized weakness patient states this generalized fatigue/weakness resulted in fall at home requiring calling EMS to assist him up from the ground. Patient reports he was walking to the bathroom and he just felt so weak and fatigue his legs just gave out on him. He denies having any injuries in the fall or any complaints of pain just rates overall "my whole body is weak". Patient denies having any fevers, chills, dizziness or lightheadedness, changes in vision or hearing, chest pain, palpitations, shortness of breath, or experiencing any numbness/tingling/weakness/swelling in his extremities. Patient reports baseline chronic urinary frequency. Upon arrival to our hospital, patient underwent evaluation in the emergency department. Vital signs upon arrival show blood pressure 126/78, heart rate 100, respiratory rate 18, temp 99.8 F, and SpO2 of 95% on room air. Labs completed and reviewed. CBC showing leukocytosis with WBC count of 15.1. Coagulation profile normal findings. BMP unremarkable. Blood glucose 127. Lactic acid 1.0. Magnesium slightly low at 1.7. Liver profile unremarkable. Urinalysis negative for infection. Influenza A, influenza B, RSV, and COVID PCR were all negative. Chest x-ray showing patchy density right lower lobe concerning for developmental infiltrate and hyperinflation compatible with COPD. EKG completed showing sinus rhythm at 78 bpm with occasional PACs. Is admitted under our services and monitored overnight. He received a 2-day course of IV antibiotics with Levaquin and being discharged home on an additional 5-day course of Levaquin 750 mg daily to total an antibiotic treatment course of 7 days. Patient reports feeling great this morning. Repeat morning x-ray was stable. Morning labs showing improvement of leukocytosis with WBC count decr easing from 15.1 down to 11.1 this morning. Remains on 94% on room air and with ambulation. Denies any weakness at this time. Patient is medically stable for discharge at this time and to follow-up outpatient with PCP in 1 to 2 days. Physical exam: Vital signs reviewed and stable. General: Nontoxic, no distress and appears stated age. Derm: Skin warm and dry, normal coloration for ethnicity. Head: Atraumatic, normocephalic and symmetric. Eyes: EOMs intact, no lid lag, and anicteric sclera Mouth: no lip lesions, mucus membranes moist Cardiovascular: regular rate and rhythm with normal S1S2, no murmur, positive posterior tibial pulses bilaterally, and cap refill < 2 seconds. Lungs: Respirations even, regular, and unlabored on room air. Lungs slightly diminished otherwise no rhonchi, no rales, no wheezing, and no accessory muscle usage. Abdominal: soft, nontender to palpation, no guarding, no appreciable organomegaly Ext: ROM intact. No gross muscle atrophy, no edema, no contractures Neuro: Speech clear, face symmetrical and CN II-XII grossly intact with no noted focal neuro deficits Psych: Alert and oriented to person, place, time, and situation. Appropriate and pleasant affect. A total of 33 minutes of time were spent preparing this complex discharge summary. Pt was discharged on 04/20/2024 at 10:57 AM. Patient was seen independently by Nurse Practitioner. This document was prepared using Mod[employer] dictation software. Please allow for errors in tool adjuster while rare they do occur. . I reviewed the documentation as provided by the GAY above, who is the original author of this note. I agree with the documented assessment and plan, with the following changes: none Patient Condition at Discharge: Stable Plan - Discharge Summary Discharge Rx Participant: Yes New Discharge Prescriptions: New Levofloxacin [Levaquin] 750 mg PO DAILY 5 Days #5 tab Continue amLODIPine [Norvasc] 5 mg PO DAILY Pyridoxine HCl (Vitamin B6) [Vitamin B-6] 100 mg PO DAILY Donepezil [Aricept] 5 mg PO HS Cholecalciferol [Vitamin D3 (125 Mcg = 5000 Iu)] 125 mcg PO DAILY Potassium Chloride [Klor-Con M10] 10 meq PO DAILY Metoprolol Tartrate [Lopressor] 25 mg PO DAILY Furosemide [Lasix] 20 mg PO DAILY Gabapentin [Neurontin] 400 mg PO QID Discharge Medication List Potassium Chloride [Klor-Con M10] 10 meq PO DAILY 12/31/22 [History] Furosemide [Lasix] 20 mg PO DAILY 10/20/23 [History] Metoprolol Tartrate [Lopressor] 25 mg PO DAILY 10/20/23 [History] amLODIPine [Norvasc] 5 mg PO DAILY 10/20/23 [History] Cholecalciferol [Vitamin D3 (125 Mcg = 5000 Iu)] 125 mcg PO DAILY 04/19/24 [History] Donepezil [Aricept] 5 mg PO HS 04/19/24 [History] Gabapentin [Neurontin] 400 mg PO QID 04/19/24 [History] Pyridoxine HCl (Vitamin B6) [Vitamin B-6] 100 mg PO DAILY 04/19/24 [History] Levofloxacin [Levaquin] 750 mg PO DAILY 5 Days #5 tab 04/20/24 [Rx] Follow up Appointment(s)/Referral(s): [facility],Clinic [Primary Care Provider] - 1-2 days (office is busy at time of discharge) Patient Instructions/Handouts: Pneumococcal Vaccine for Adults (DC), Community Acquired Pneumonia (DC) Activity/Diet/Wound Care/Special Instructions: Activity: As tolerated. Take breaks as needed. Diet: Heart healthy and carb consistent diet. Avoid salts, or foods with hidden salts such as canned or boxed foods and frozen dinners. Extra salt makes your heart work harder and traps the fluid in your body for longer. Special Instructions: Take all of your medications as directed and remember to keep all of your doctor's appointments and follow-up as needed. Again, I would like to thank you for your service, it is always an honor to be able to participate in providing care to [facility]!!!! Thank you for allowing us to participate in your care, it was truly a pleasure having you for our patient!!! . Discharge Disposition: HOME SELF-CARE
[2024-04-20 11:15] VITALS: PULSE 84
== END 2024-04-20 13:06 | disposition home or self-care (01) ==
LOC: EC 07:59 → 4SSUR 10:46
PROVIDERS: ADMIT Student in an Organized Health Care Education/Training Program; ATTEND Student in an Organized Health Care Education/Training Program
DX: J18.9 Pneumonia, unspecified organism (principal); G47.33 Obstructive sleep apnea (adult) (pediatric); I10 Essential (primary) hypertension; Z85.46 Personal history of malignant neoplasm of prostate; Z87.891 Personal history of nicotine dependence; Z79.899 Other long term (current) drug therapy; Z88.0 Allergy status to penicillin
CPT/HCPCS: 96376; 96361 ×3; 96372; 96374; 99291; 36415; 94660; 94640 ×4; 94760 ×2; 93005; 97162; 97166; 80053 ×2; 87449; 83605; 83735 ×2; 85025; 85027; 85610; 85730; 81001; 87040; 87636; 71046 ×2; G0378 ×2; J1650; J1956 ×2

== ENCOUNTER 2024-06-04 07:58 | Day surgery (SDC) | payer MEDICARE ==
[2024-06-04] MEDS: diazePAM 5 MG TAB PO STA (08:57)
[2024-06-04 09:06] VITALS: RESP 16; TEMP 97.9
--- NOTE | 2024-06-04 10:28 | FL ---
EXAMINATION TYPE: FL myelogram lumbosacral DATE OF EXAM: 06/04/2024 COMPARISON: NONE HISTORY: Back pain Informed consent was obtained and all the patient's questions were answered. The L3-L4 level was loc alized under fluoroscopy. Standard sterile technique was utilized as well as appropriate local anest hesia 1% Lidocaine and sodium bicarbonate. Spinal needle was introduced into the thecal sac under fl uoroscopic guidance and 8 mL's of Isovue 200 was injected. The patient tolerated the procedure well and left the department in stable condition. CT myelography is to follow. On one image submitted an d 1.17 minutes of fluoroscopy. A DAP was not provided. IMPRESSION: Successful myelography lumbar spine. CT scan to follow.
--- NOTE | 2024-06-04 13:04 | CT ---
EXAMINATION TYPE: CT lumbar spine w con CT DLP: 2582.10 mGycm, Automated exposure control for dose reduction was used. DATE OF EXAM: 06/04/2024 10:41 AM COMPARISON: Fluoroscopic myelogram procedure of the same date, CT abdomen and pelvis 10/19/2023, lumb ar spine radiograph 01/02/2022. CLINICAL INDICATION:Male, 79 years old with history of M54.10RADICULOPATHY, SITE UNSPECIFIED M54.50; PHH, Radiculopathy, site unspecified TECHNIQUE: Multiple axial images were obtained from the midportion of T11 through the sacroiliac jennifer nts. Soft tissue and bone windows in coronal and sagittal planes were obtained and reviewed. Contrast used:8 ml mL of Isovue M200 with IV Contrast Oral contrast used: none. FINDINGS: There are 5 lumbar type vertebral bodies identified. No acute fracture. Postsurgical changes with ting ateral pedicle screws and rods involving L4-S1. Hardware appears intact with appropriate alignment. D isc fusion cages identified these levels. Mild retrolisthesis of L5 on S1. Bilateral pars defects at L4. Minimal dextrocurvature of the lumbar spine. Remaining vertebral bodies are in normal alignment. Degenerative changes of the bilateral SI joints. Stable lucent 1.7 cm lesion within the right iliac b one abutting the SI joint. This demonstrates a thin sclerotic rim. Additional stable sclerotic 1.4 cm lesion within the central L3 vertebral body. Partial visualization of right hip arthroplasty. Discs: Multilevel vacuum disc disease. T9-T10: No significant central canal or neural foraminal stenosis. T10-T11: No significant central canal or neural foraminal stenosis. T11-T12: Small left paracentral disc protrusion without significant effacement of the anterior thecal sac. No neural foraminal stenosis. T12-L1: Broad-based disc bulge without significant central canal stenosis. Neural foramina are patent bilaterally. L1-L2: Broad-based disc bulge without significant central canal stenosis. Bilateral facet arthropathy . Right neural foramen is patent. Mild left neural foraminal stenosis. L2-L3: Broad-based disc bulge with bilateral facet arthropathy resulting in mild central canal stenos is. Right neuroforamen is patent. Moderate left neural foraminal stenosis. L3-L4: Broad-based disc bulge with ligamentum flavum buckling and bilateral facet arthropathy with mi ld spinal canal stenosis. Mild bilateral neural foraminal stenosis. L4-L5: Mild retrolisthesis. No significant central canal stenosis. Bilateral facet arthropathy with m ild bilateral neural foraminal stenosis. Bilateral pars defects. L5-S1: No significant central canal stenosis. Mild bilateral neural foraminal stenosis. Paraseptal emphysematous change within the visualized right lower lobe. IMPRESSION: 1. No evidence for spinal fracture. 2. Post surgical changes from posterior disc fusion L4-S1. Hardware appears intact with appropriate a lignment. 3. Similar mild retrolisthesis of L5 on S1. Bilateral pars defects at L4. 4. Moderate multilevel degenerative disc disease with facet arthropathy. Mild central canal stenosis at L2-L3 and L3-L4. There are varying degrees of neural foraminal stenosis as described above. 5. Small left paracentral disc herniation at T11-T12 without effacement of the anterior thecal sac. 6. Stable indeterminate right iliac bone lucent lesion and sclerotic L3 vertebral body lesion from CT.
[2024-06-04 13:17] VITALS: BP 112/62; PULSE 52
== END 2024-06-04 14:06 | disposition home or self-care (01) ==
LOC: RADPROMAIN 07:58
PROVIDERS: ATTEND Orthopaedic Surgery
DX: M48.061 Spinal stenosis, lumbar region without neurogenic claudication (principal); M43.17 Spondylolisthesis, lumbosacral region; M47.26 Other spondylosis with radiculopathy, lumbar region; M51.16 Intervertebral disc disorders with radiculopathy, lumbar region; M51.24 Other intervertebral disc displacement, thoracic region
CPT/HCPCS: 62304; 72132; Q9966

== ENCOUNTER 2024-09-13 09:14 | Inpatient (IN) | payer MEDICARE ==
[2024-09-08 15:53] VITALS: BMI 44.9
[~2024-09-13 09:14] MED LIST: GABAPENTIN 300 MG CAP PO PRN; HYDROmorphone 0.5 MG/0.5 ML SYRINGE IVP PRN; TRANEXAMIC 1,000 MG/100ML-NACL 1,000 MG in SALINE 1 100ML.BAG IVPB PRN
--- NOTE | 2024-09-13 10:03 | P.HPOR ---
History of Present Illness .D:Date: 07/26/24 : 03:33pm .T:Title: [facility] [address] [place] [id number]| DO BEATRIZ JESUS, MSN, VENIPUNCTURIST-C Age: 79 year Height: 5'5" Weight: 270 lbs BP:/ BMI: 44.93 kg/m2 Occupation: retired CC: Low back pain/Lumbar CT results VAS: 6 HISTORY: Mr. Santiago presents to the office today, 07/26/24, for Low back pain and Lumbar CT results. Patient complains of lower back pain that radiates across his low back and down both of his legs.Patient has a history of a L4-S1 decompression and fusion from November [address] Sloan. He is currently taking gabapentin and tylenol for relief of his symptoms. He states the pain is now constant and moderate and going back to what it was before his other surgery. He states he has tried conservative measures OTC meds, Rx meds, injections as well as PT none of which have given him relief. He states he is done with the pain and band-aid treatment and wants surgery. H8 Patient denies any f/c/sob/cp, perineal numbness or tingling, bowel, or bladder incontinence/retention. Patient is ambulatory with a walker P1 The patients past social, medical, family, surgical history, as well as review of systems, have been reviewed. Please refer to the History and Physical form that has been scanned into our electronic medical record system. R0 16 points review of systems completed and as stated in HPI, all other systems reviewed are negative. PAST TREATMENTS: PAST IMAGING: YES - TRAUMA RELATED: NO - WORK RELATED: NO - PT IN LAST 6 MONTHS: YES - PHYSICIAN DIRECTED HOME EXERCISE PROGRAM: YES - ACTIVITY MODIFICAITON: YES - MEDICATIONS: YES - ALTERNATIVE INTERVENTIONS (CHIROPRACTIC, ACCUPUNCTURE, MASSAGE, RICE): YES - BRACING: NO - INJECTIONS (ELVIS, TF, RFA): YES - MEDICAL HISTORY: Past Medical History: REVIEWED STATED IN CHART Past Surgical History: REVIEWED STATED IN CHART Social History: REVIEWED STATED IN CHART SMOKING: Never smoker ETOH: None SUBSTANCES: None Family History: REVIEWED STATED IN CHART P1 Current Medications: Rx: amLODIPine 5 mg tablet Ref: 0 Instructions: take 1 tablet (5 mg) by oral route once daily Rx: gabapentin Ref: 0 Instructions: 400 mg 4 times daily Rx: metoprolol tartrate 25 mg tablet Ref: 0 Instructions: take 1 tablet (25 mg) by oral route 1 time per day Rx: potassium chloride ER 10 mEq capsule,extended release Ref: 0 Instructions: take 1 capsule (10 meq) by oral route once daily with food Rx: donepeziL 5 mg tablet Ref: 0 Instructions: take 1 tablet (5 mg) by oral route once daily in the evening Rx: furosemide 20 mg tablet Ref: 0 Instructions: take 1 tablet (20 mg) by oral route once daily Rx: Tylenol Extra Strength 500 mg tablet Ref: 0 Instructions: take 2 tablets (1,000 mg) by oral route every 6 hours as needed P1 PHYSICAL EXAM: PC2 PC1 General: AOX3, NAD, Well hydrate, well nourished PN1 HEENT: No lumps or masses Extremities: No color changes, no pooling INTEGUMENT: Appearance: Normal color and turgor Surgical Incisions: Posterior paralumbar well healed. Hairy Patches: ABSENT Dorsal Skin Dimples: Normal [employer] spots: ABSENT PALPATION: TTP Midline: NO Paracervical: NO Parathoracic: NO Paralumbar: YES SIJ TESTING: TESTED * [place] Finger: + right * FABER4: + b/l * Compression: + b/l * Distraction: neg b/l * Thigh thrust: +RIGHT * Hip thrust: +RIGHT POSTURAL BALANCE: Coronal: BALANCED Sagittal: BALANCED Shoulder height: LEVEL Pelvic Girdle: LEVEL ROM AND APPEARANCE: Neck: UNRESTRICTED Lumbar: RESTRICTED with pain Shoulders: Symmetrical Hips: Symmetrical Knees: Symmetrical Hands: Symmetrical Feet: Symmetrical VASCULAR STATUS: PALPABLE PULSES B/L UE AND LE 2/4 RAD/ULNAR/DP/PT Edema: NONE NEUROLOGICAL EXAMINATION: Mental Status: Awake, alert, fully oriented with normal attention, concentration, and memory. Fluent appropriate speech. CRANIAL NERVES: I: Olfactory not assessed. II: Visual acuity normal, no visual field deficit noted with confrontation. III, IV: Normal pupillary reflexes & intact extraocular movements without nystagmus. V, : Intact symmetrical facial sensation. VII: Intact symmetrical facial motor movement: Hearing intact. IX, X: Intact gag, swallow, & normal voice. XI: Sternocleidomastoid, trapezius function intact. XII: Tongue midline with normal movements. TENSIONING: * L'HERMITTE'S SIG:NEG SPURLUNG'S SIGN:NEG CUBITAL TUNNEL COMPRESSION:NEG TINELS AT WRIST:NEG STRAIGH LEG RAISE:+ b/l CONTRALATERAL STRAIGHT LEG RAISE: NEG MOTOR EXAM (0-5/5, NT) Muscle appearance: Symmetrical, without signs of atrophy or dystrophy UPPER EXTREMITY RIGHT LEFT Shoulder Abduction 5 5 Biceps 5 5 Triceps 5 5 Wrist Extension 5 5 Hand Intrinsics 5 5 Insurance Sales Executive 5 5 LOWER EXTREMITY RIGHT LEFT Hip Flexion 5 5 Knee Extension 5 5 Knee Flexion 5 5 Dorsiflexion 5 5 Plantarflexion 4 4 EHL 4 4 FHL 4 4a REFLEXES (0-4/2, NT): RIGHT LEFT Bicep 2 2 Brachioradialis 2 2 Triceps 2 2 Patellar 2 2 Achilles 2 2 PATHOLOGICAL REFLEXES: RIGHT LEFT HERNANDEZ'S ABSENT ABSENT CLONUS ABSENT ABSENT BABINSKI ABSENT ABSENT RECTAL TONE: INTACT/NT SENSATION (0-4, NT): Sensation intact to LT and Pain * C5-T1 distribution BUE * L2-S2 distribution BLE *Exceptions below* DERMATOMAL DEFICIT/RADICULAR PATTERN: L4-S1 b/l GAIT AND FUNCTIONAL EVALUATION: AMBULATORY AID Cane ROMBERG'S TEST INTACT HAND AND FINGER DEXTERITY INTACT YES DYSDIADOCHOKINESIA EXAM NEG B/L YES TOE/HEEL WALK INTACT WITH GOOD BALANCE YES SQUAT AND RISE W/O ASSISTANCE TO 60 DEG KNEE FLEXION YES SINGLE LEG STANCE INTACT [place] NEG IMAGING: Xray (Lumbar MV 05/17/24) and CT myelogram (lumbar w/o 06/04/24) reviewed with the patient this demonstrates post surgical changes at L4-S1 with PLIF in place. There is pseudoarthrosis of L5-S1 noted with cage migration anteriorly. There is likey pseudoarthrosis of L4-5 as well with no interbody fusion noted and collapse of the cage and subsidence. There is sever ASD at L3-4 with retrolisthesis, large HNP causing stenosis central and b/l foraminal that is severe in nature. There are vacuum discs from T10-L4 noted with severe spondylotic and DD changes through this region. Severe facet arthrosis noted. Decreased LL secondary to the collapse overall. NO fractures noted. No lesions. IMPRESSION: It was my pleasure to have seen and examined Romario. I reviewed the patient's clinical syndrome, physical findings, and imaging studies during the appointment today. It is my impression that the patient has a diagnosis of. 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 LE weakness b/l 4. Low back pain PLAN: DISCUSSION: -I have discussed with the patient his imaging and clinical signs and sx. At this time he has tried multiple different conservative modatilies none of which have alleviated his sx. He has non-healing fusion noted L4-S1 with ASD that with severe stenosis and progressive neurological decline. At this time I recommend surgical intervention as outlined. We discussed different conservatifve options but the patient is not ammendable to thses, he states they have not worked and he wants to be fixed. He is ammendable to surgical treatment. We discussed different surgical options and he is willing to proceed as outlined. Risks discussed as in the risk review. 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 * Patient has tried multiple conservative treatments without success and desires a more definitive solution * There is evidence of progressive neurological decline and severe stenosis Potential Risks: * Infection: Given the extensive nature of the surgery and previous hardware * Bleeding: Risk of significant blood loss during the procedure * Nerve injury: Potential for temporary or permanent nerve damage, which could affect sensation or motor function in the lower extremities * Hardware failure: Risk of implant loosening, breakage, or malposition * Persistent pain: Surgery may not completely alleviate pain symptoms * Adjacent segment disease: Potential for accelerated degeneration of spinal segments above or below the fusion * Pseudoarthrosis: Risk of fusion failure, especially given the history of previous pseudoarthrosis * Anesthesia risks: Particularly important given the patient's age (79 years) * Deep vein thrombosis and pulmonary embolism: Increased risk due to the extent of the surgery and potential for reduced mobility post-operatively Benefits: * Potential for significant pain relief and improved function * Correction of spinal instability and deformity * Decompression of neural elements, potentially improving neurological symptoms * Long-term stabilization of the spine, addressing both the failed previous fusion and the adjacent segment disease I have discussed these risks and benefits with the patient, and Mr. Santiago has expressed a desire to proceed with the surgical intervention as outlined. The patient was thoroughly counseled on the extensive nature of this revision surgery, the potential for complications, and the expected recovery process before proceeding. FOLLOW UP: POST OP PLAN AT NEXT VISIT: XRAY AND WOUND CHECK PATIENT EDUCATION: Medications Reviewed: YES In our visit today Mr. Santiago and I have had a chance to go over my understanding of the patient's current condition, the natural course history without intervention and various interventional options. Questions were invited and answered, and the patient wishes to proceed as outlined above. I will be sure to keep you updated after Mr. Santiago returns here for further follow-up. Thank you again for your referral. Please do not hesitate to contact me if you have any further questions. Signed and authenticated by: Grady Arredondo [facility] [address] [place] [address] . This message is confidential, intended only for the named recipient(s) and may contain information that is privileged or exempt from disclosure under applicable law. If you are not the intended recipient(s), you are notified that the dissemination, distribution or copying of this information is prohibited. If you received this message in error, please notify the sender then delete this message. Past Medical History Past Medical History: Cancer, Hearing Disorder / Deafness, Hypertension, Osteoarthritis (OA), Sleep Apnea/CPAP/BIPAP Additional Past Medical History / Comment(s): CPAP USE, HX PROSTATE CANCER, INCONTINTENT OF URINE DUE TO PROSTATE CANCER TREATMENT, HX KIDNEY STONES, BILATERAL HEARING AIDS. History of Any Multi-Drug Resistant Organisms: None Reported Past Surgical History: Adenoidectomy, Back Surgery, Orthopedic Surgery, Tonsillectomy Additional Past Surgical History / Comment(s): TOTAL LEFT KNEE REPLACEMENT X2, RIGHT FOOT BUNIONECTOMY, RIGHT HIP REPLACEMENT, BACK SURGERY WITH HARDWARE. Past Anesthesia/Blood Transfusion Reactions: No Reported Reaction Additional Past Anesthesia/Blood Transfusion Reaction / Comment(s): Never received blood transfusion. Smoking Status: Former smoker - Past Family History Father Family Medical History: Cancer Additional Family Medical History / Comment(s): BRAIN CANCER. Mother Family Medical History: Cancer Additional Family Medical History / Comment(s): LUNG CANCER. Brother(s) Family Medical History: Cancer Additional Family Medical History / Comment(s): PANCREATIC CANCER. Medications and Allergies Home Medications Medication Instructions Recorded Confirmed Type Potassium Chloride [Klor-Con M10] 10 meq PO DAILY 12/31/22 09/08/24 History Furosemide [Lasix] 20 mg PO DAILY 10/20/23 09/08/24 History Metoprolol Tartrate [Lopressor] 25 mg PO DAILY 10/20/23 09/08/24 History amLODIPine [Norvasc] 5 mg PO DAILY 10/20/23 09/08/24 History Cholecalciferol [Vitamin D3 (125 125 mcg PO DAILY 04/19/24 09/08/24 History Mcg = 5000 Iu)] Donepezil [Aricept] 5 mg PO HS 04/19/24 09/08/24 History Gabapentin [Neurontin] 400 mg PO QID 04/19/24 09/08/24 History Pyridoxine HCl (Vitamin B6) 100 mg PO DAILY 04/19/24 09/08/24 History [Vitamin B-6] Acetaminophen [Tylenol Extra 500 mg PO Q6H 09/08/24 09/08/24 History Strength] Allergies Allergy/AdvReac Type Severity Reaction Status Date / Time Penicillins Allergy Anaphylaxis Verified 09/08/24 15:27 Physical Examination Osteopathic Statement: *. No significant issues noted on an osteopathic structural exam other than those noted in the History and Physical/Consult.
[2024-09-13] MEDS: ACETAMINOPHEN TAB 500 MG TAB PO PRN (10:14)
[2024-09-13] MEDS: LACTATED RINGERS 1,000 ML IV SCH (10:14)
[2024-09-13] MEDS: MIDAZOLAM 2 MG/2 ML VIAL IV ONE (10:15)
[2024-09-13] MEDS: ONDANSETRON 4 MG/2 ML VIAL IVP PRN (10:16)
[2024-09-13] MEDS: IV FLUID CONTINUATION 1,000 ML IV ONE ×2 (10:25)
[2024-09-13 10:26] LABS: ALT 26 U/L (4-49); African American GFR (CKD) >90 (>60 ml/min/1.73 sqM); Albumin 4.5 g/dL (3.5-5.0); Anion Gap 7 mmol/L; Blood Urea Nitrogen 15 mg/dL (9-20); Carbon Dioxide 25 mmol/L (22-30); Chloride 107 mmol/L (98-107); Glucose 112 mg/dL (74-99); Non-African American GFR(CKD) 85 (>60 ml/min/1.73 sqM); Sodium 139 mmol/L (137-145); Total Protein 7.4 g/dL (6.3-8.2)
[2024-09-13 10:28] LABS: Potassium 5.2 mmol/L (3.5-5.1)
[2024-09-13 10:29] LABS: AST 41 U/L (17-59); Alkaline Phosphatase 63 U/L (38-126)
[2024-09-13] MEDS ORDERED: VANCOMYCIN IV PER PHARMACY 1 EACH MISC MISCELLANE PRN ×2 (10:30→13:28)
[2024-09-13] MEDS: VANCOMYCIN 2,000 MG in SODIUM CHLORIDE 0.9% 500 ML 500 ML IVPB PRN (10:42)
[2024-09-13] MEDS ORDERED: GLYCOPYRROLATE 0.2 MG/ML 2 ML VIAL ONE (11:05)
[2024-09-13] MEDS ORDERED: PROPOFOL 10 MG/ML 20 ML VIAL IV ONE (11:05)
[2024-09-13] MEDS ORDERED: PHENYLEPHRINE 10 MG/ML VIAL ONE (11:05)
[2024-09-13] MEDS ORDERED: ROCURONIUM 10 MG/ML (5 ML VIAL) IV ONE (11:05)
[2024-09-13] MEDS ORDERED: ePHEDrine 50 MG/ML 1 ML VIAL ONE (11:05)
[2024-09-13] MEDS ORDERED: SUCCINYLCHOLINE CHLORIDE 200 MG/10 ML VIAL IV ONE (11:05)
[2024-09-13] MEDS ORDERED: fentaNYL (PF) 50 MCG/ML 2 ML AMP ONE (11:05)
[2024-09-13] MEDS ORDERED: MIDAZOLAM 2 MG/2 ML VIAL ONE (11:05)
[2024-09-13] MEDS ORDERED: SUGAMMADEX SODIUM 200 MG/2 ML SDV IV ONE (11:05)
[2024-09-13] MEDS: ceFAZolin 3 GM in SODIUM CHLORIDE 0.9% 100 ML IVPB PRN (11:06)
[2024-09-13] MEDS: GENTAMICIN 80 MG in SODIUM CHLORIDE 0.9% IRRIGATIO 3,000 ML IRRIGATION ONE (11:51)
[2024-09-13] MEDS: ceFAZolin 3,000 MG in SODIUM CHLORIDE 0.9% IRRIGATIO 3,000 ML IRRIGATION ONE (11:51)
[2024-09-13] MEDS: THROMBIN (BOVINE) 5,000 UNIT VIAL TOPICAL ONE (11:59)
[2024-09-13] MEDS ORDERED: HYDROmorphone 0.5 MG/0.5 ML SYRINGE IVP PRN (13:24)
[2024-09-13] MEDS ORDERED: HYDROmorphone 2 MG/ML 1 ML SYRINGE IVP PRN (13:24)
[2024-09-13] MEDS ORDERED: HYDROcodone/APAP 10-325MG 1 EACH TAB PO PRN (13:24)
[2024-09-13] MEDS ORDERED: HYDROcodone/APAP 5-325MG 1 EACH TAB PO PRN (13:24)
[2024-09-13] MEDS ORDERED: CYCLOBENZAPRINE 5 MG TAB PO PRN (13:24)
[2024-09-13] MEDS: LACTATED RINGERS 1,000 ML IV ONE ×2 (14:34→14:54)
[2024-09-13] MEDS: VANCOMYCIN 1,000 MG VIAL MISCELLANE ONE (15:41)
--- NOTE | 2024-09-13 16:37 | FL ---
EXAMINATION TYPE: FL guidance operating room, XR lumbar spine 2 or 3V DATE OF EXAM: 09/13/2024 4:32 PM COMPARISON: Pre Operative Images if available both CT/MRI or plain film CLINICAL INDICATION: Male, 79 years old with history of LUMBAR FUSION; TECHNIQUE: FL guidance operating room, XR lumbar spine 2 or 3V, multiple fluoroscopic images provided for procedure. Total fluoroscopy time: 1 min 6.6 seconds Total submitted images to PACS: 2 DAP: [phone] mGym2 Gycm2 uGym2 cGycm2 or equivalent. FINDINGS: Fluoroscopic images during internal fixation/arthroplasty demonstrate fixation hardware in appropriat e position. Hardware appears intact. No immediate complication identified. IMPRESSION: 1. No evidence for intraoperative complication. 2. Please see the operative/procedural note for further details. [facility], , 09/13/2024 4:35 PM
[2024-09-13 17:36] LABS: HCT 39.3 % (39.0-53.0); HGB 12.7 gm/dL (13.0-17.5); Hypochromasia Slight; MCH 31.3 pg (25.0-35.0); MCHC 32.2 g/dL (31.0-37.0); Mean Platelet Volume 6.9; Platelet Count 265 k/uL (150-450); RBC 4.05 m/uL (4.30-5.90); RDW 14.2 % (11.5-15.5); WBC 15.6 k/uL (3.8-10.6)
[2024-09-13 17:45] LABS: Anion Gap 6 mmol/L; Blood Urea Nitrogen 14 mg/dL (9-20); Carbon Dioxide 24 mmol/L (22-30); Chloride 106 mmol/L (98-107); Glucose 150 mg/dL (74-99); Potassium 4.4 mmol/L (3.5-5.1); Sodium 136 mmol/L (137-145)
[2024-09-13 17:46] LABS: African American GFR (CKD) >90 (>60 ml/min/1.73 sqM); Calcium 8.2 mg/dL (8.4-10.2); Non-African American GFR(CKD) 86 (>60 ml/min/1.73 sqM)
[2024-09-13] MEDS: GABAPENTIN 400 MG CAP PO SCH (18:13)
[2024-09-13] MEDS: KETOROLAC 15 MG/ML 1 ML VIAL IVP SCH (18:13)
--- NOTE | 2024-09-13 20:38 | P.CONS ---
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 Who presented for surgical intervention of his low back pain after trying multiple different conservative modalities, none of which had alleviated his symptoms. Patient was seen by orthopedic surgery, and underwent [id number] revision posterior lateral and interbody fusion with decompression, removal of hardware, exploration of fusion and bilateral sacroiliac joint fusion for a long construct stability surgery earlier today. Patient is now postop with no known surgical complications. Patient is lying flat on his back stating that he is moderate pain, 45/10, which is about what he was dealing with prior to surgery. He notes no additional pain out of what he expected postsurgically Patient reports absence of fever, chills, weight loss, chest pain, palpitations, diaphoresis, dyspnea, cough, nausea, vomiting, constipation, diarrhea, abdominal pain, weakness, myalgia, dizziness, headache, and dysuria. Internal medicine was consulted for medical management. Initial lab workup revealed WBC 15.6, Hgb 12.7, hct 39.3; sodium 136, potassium 4.4, BUN 14, creatinine 0.80, glucose 150, calcium 8.2 X-ray of the lumbar spine: Showed no evidence of intraoperative complication. REVIEW OF SYSTEMS: All systems reviewed, pertinent positives and negatives noted in HPI. All other symptoms are negative. PHYSICAL EXAMINATION: Vitals reviewed GENERAL: No acute distress. Well developed, well nourished. HEENT: No scleral icterus. Normocephalic, atraumatic. CARDIOVASCULAR: S1 and S2 present. No murmurs, rubs, or gallops. PULMONARY: Chest is clear to auscultation, no wheezing, rhonchi, or crackles. ABDOMEN: Soft, nontender, nondistended, normoactive bowel sounds. No palpable organomegaly. MUSCULOSKELETAL: No apparent joint swelling and deformities. EXTREMITIES: No apparent cyanosis, clubbing, or pedal edema. NEUROLOGICAL: The patient is alert and oriented x3, Gross neurological examination did not reveal any focal deficits. 5/5 strength bilateral UE and LE. SKIN: No apparent rashes. Large bandages over the midline portion of his back, covering the surgical site. No erythema surrounding surgical site noted. Assessment and plan Mr. 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 Internal medicine on consult for medical management. Chronic Medical Conditions #Essential hypertension Continue 25 mg Lopressor daily Continue 5 mg Norvasc daily #Bilateral peripheral neuropathy Patient takes 400 mg gabapentin at home 4 times daily which has been restarted #S/p [id number] revision posterior lateral and interbody fusion and decompression, removal of hardware, exploration of fusion and bilateral sacroiliac joint fusion for long construct stability surgery POD #zero Pain management and DVT prophylaxis per primary surgical team Antibiotic coverage per the primary surgical team F: IV LR 20 mL/hr E: Replete as needed N: Heart healthy diet DVT ppx: per primary surgical team GI ppx: Protonix 40 mg daily Code status: Full code Patient is currently stable from medical stand point Follow up CBC and BMP in AM Dictation was produced using [employer] dictation software. Please excuse any grammatical, word or spelling errors. Past Medical History Past Medical History: Cancer, Hearing Disorder / Deafness, Hypertension, Osteoarthritis (OA), Sleep Apnea/CPAP/BIPAP Additional Past Medical History / Comment(s): CPAP USE, HX PROSTATE CANCER, INCONTINTENT OF URINE DUE TO PROSTATE CANCER TREATMENT, HX KIDNEY STONES, BILATERAL HEARING AIDS. History of Any Multi-Drug Resistant Organisms: None Reported Past Surgical History: Adenoidectomy, Back Surgery, Orthopedic Surgery, Tonsillectomy Additional Past Surgical History / Comment(s): TOTAL LEFT KNEE REPLACEMENT X2, RIGHT FOOT BUNIONECTOMY, RIGHT HIP REPLACEMENT, BACK SURGERY WITH HARDWARE. Past Anesthesia/Blood Transfusion Reactions: No Reported Reaction Additional Past Anesthesia/Blood Transfusion Reaction / Comm: Never received blood transfusion. Past Psychological History: No Psychological Hx Reported Smoking Status: Former smoker Past Alcohol Use History: Rare Additional Past Alcohol Use History / Comment(s): STARTED SMOKING AGE 12, QUIT 29 YRS AGO, SMOKED 2-3 PPD. Past Drug Use History: None Reported - Past Family History Father Family Medical History: Cancer Additional Family Medical History / Comment(s): BRAIN CANCER. Mother Family Medical History: Cancer Additional Family Medical History / Comment(s): LUNG CANCER. Brother(s) Family Medical History: Cancer Additional Family Medical History / Comment(s): PANCREATIC CANCER. Medications and Allergies Home Medications Medication Instructions Recorded Confirmed Type Potassium Chloride [Klor-Con M10] 10 meq PO DAILY 12/31/22 09/13/24 History Furosemide [Lasix] 20 mg PO DAILY 10/20/23 09/13/24 History Metoprolol Tartrate [Lopressor] 25 mg PO DAILY 10/20/23 09/13/24 History amLODIPine [Norvasc] 5 mg PO DAILY 10/20/23 09/13/24 History Cholecalciferol [Vitamin D3 (125 125 mcg PO DAILY 04/19/24 09/13/24 History Mcg = 5000 Iu)] Donepezil [Aricept] 5 mg PO HS 04/19/24 09/13/24 History Gabapentin [Neurontin] 400 mg PO QID 04/19/24 09/13/24 History Pyridoxine HCl (Vitamin B6) 100 mg PO DAILY 04/19/24 09/13/24 History [Vitamin B-6] Acetaminophen [Tylenol Extra 500 mg PO Q6H 09/08/24 09/13/24 History Strength] Allergies Allergy/AdvReac Type Severity Reaction Status Date / Time Penicillins Allergy Anaphylaxis Verified 09/13/24 10:06 Physical Exam Vitals: Vital Signs Temp Pulse Resp BP Pulse Ox 09/13/24 18:28 97.8 F 63 17 108/73 98 09/13/24 17:45 60 18 116/69 96 09/13/24 17:15 65 18 125/79 96 09/13/24 17:00 65 18 113/65 95 09/13/24 16:45 68 18 144/60 96 09/13/24 16:30 98.2 F 83 16 143/74 98 09/13/24 10:37 51 L 18 126/82 97 09/13/24 10:07 97.7 F 55 L 18 149/92 97 Intake and Output 09/13/24 09/13/24 09/13/24 06:59 14:59 22:59 Intake Total 2902 300 Output Total 932 Balance 2902 -632 Intake: IV 2902 300 Output: Urine 350 Estimated Blood Loss 582 Other: Weight 128 kg 128 kg Results CBC & Chem 7: 09/13/24 17:21 09/13/24 17:21 Labs: Abnormal Lab Results - Last 24 Hours (Table) 09/13/24 09/13/24 09/13/24 Range/Units 10:05 17:21 17:21 WBC 15.6 H (3.8-10.6) k/uL RBC 4.05 L (4.30-5.90) m/uL Hgb 12.7 L (13.0-17.5) gm/dL Sodium 136 L (137-145) mmol/L Potassium 5.2 H (3.5-5.1) mmol/L Glucose 112 H 150 H (74-99) mg/dL Calcium 8.2 L (8.4-10.2) mg/dL Assessment and Plan Assessment: I have seen and evaluated the patient today. I Discussed the case with the resident and agree with the resident's findings I edited the assessment and plan as necessary as documented in the resident's note.
[2024-09-13] MEDS ORDERED: FUROSEMIDE 20 MG TAB PO PRN (20:45)
[2024-09-13] MEDS: DONEPEZIL 5 MG TAB PO SCH (21:26)
[2024-09-13] MEDS: VANCOMYCIN 2,000 MG in SODIUM CHLORIDE 0.9% 500 ML 500 ML IVPB SCH (23:49)
[2024-09-14] MEDS: ONDANSETRON 4 MG/2 ML VIAL IVP PRN (00:15)
[2024-09-14] MEDS: PANTOPRAZOLE 40 MG TABLET PO SCH (06:34)
--- NOTE | 2024-09-14 07:34 | P.OP ---
Date of Procedure: 09/13/24 Preoperative Diagnosis: 1. 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 LOW BACK PAIN 3. LE WEAKNESS 4. LE RADICULOPATHY 5. NEUROGENIC CLAUDICATION 6. OBESITY 7. COMPLEX MEDICAL PATIENT Postoperative Diagnosis: 1. 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 LOW BACK PAIN 3. LE WEAKNESS 4. LE RADICULOPATHY 5. NEUROGENIC CLAUDICATION 6. OBESITY 7. COMPLEX MEDICAL PATIENT Procedure(s) Performed: 1. L3-4 POSTEROLATERAL AND INTERBODY FUSION 2. L5-S1 REVISION INTERBODY FUSION (59) 3. BILATERAL OPEN SACROILIAC JOINT FUSION FOR LONG CONSTRUCT STABILITY AND SACROILLIAC INSTABILITY 4. L4-S1 REVISION POSTEROLATERAL INSTRUMENTED FUSION (59) 5. INSTRUMENTATION L3-PELVIS 6. ATTACHMENT OF THE CAUDAL END OF THE CONSTRUCT TO THE BONY PELVIS NOT SACRUM 7. BILATERAL LAMINECTOMY, FACETECTOMY AND FORAMINOTOMY L3-4, L4-5, L5-S1 FOR NEURAL DECOMPRESSION AND CAGE PLACEMENT 8. INSERTION OF INTERBODY DEVICES L3-4 AND L5-S1, CAGEX x2 9. REMOVAL OF SEGMENTAL HARDWARE L4-S1 DUE TO SCREW LOOSENING AND PSEUDOARTHROSIS 10. EXPLORATION OF FUSION L4-S1 DUE TO PSEUDOARTHROSIS MOD 22: THIS CASE TOOK 75% LONGER THAN ANTICIPATED DUE TO PATIENT'S COMORBID CONDITIONS, BMI >40, EXTENT OF LUMBAR DISEASE, REVISION STATUS AND COMPLEXITY OF THE CASE. USE OF IONM ALL SCREWS TESTING > 20 mA Implants: [employer] EVERST RODS AND SCREWS SI BONE PELVIC SCREWS SI BONE TORQUE SCREWS FOR SI FUSION GLOBUS INTRALIFT CAGE x1; GLOBUS SABLE CAGE x1 AUTOGRAFT, ALLOCELL AF, CONTOUR, MAGNATOS, DBM Anesthesia: GETA Surgeon: Grady Bowles Insurance Office Manager #1: She Mcdonnell (WAS PRESENT FROM POSITIONING TO BEGINING OF SCREW PLACEMENT AND ASSISTED WITH ALL ASPECTS OF THE CASE FOR THESE PORTIONS. ) Insurance Office Manager #2: Eugene Omer (WAS PRESENT FROM SCREW PLACEMENT TO DRESSING PLACEMENT AND ASSISTED WITH ALL ASPECTS OF THE CASE) Estimated Blood Loss (ml): 500 IV fluids (ml): 2,000 Urine output (ml): 500 Pathology: none sent Condition: stable Disposition: PACU Indications for Procedure: 79 y0 male presents for his low back surgery. Patient complains of lower back pain that radiates across his low back and down both of his legs.Patient has a history of a L4-S1 decompression and fusion from November [address] Sloan. He is currently taking gabapentin and tylenol for relief of his symptoms. He states the pain is now constant and moderate and going back to what it was before his other surgery. He states he has tried conservative measures OTC meds, Rx meds, injections as well as PT none of which have given him relief. He states he is done with the pain and band-aid treatment and wants surgery. 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 * Patient has tried multiple conservative treatments without success and desires a more definitive solution * There is evidence of progressive neurological decline and severe stenosis Potential Risks: * Infection: Given the extensive nature of the surgery and previous hardware * Bleeding: Risk of significant blood loss during the procedure * Nerve injury: Potential for temporary or permanent nerve damage, which could affect sensation or motor function in the lower extremities * Hardware failure: Risk of implant loosening, breakage, or malposition * Persistent pain: Surgery may not completely alleviate pain symptoms * Adjacent segment disease: Potential for accelerated degeneration of spinal segments above or below the fusion * Pseudoarthrosis: Risk of fusion failure, especially given the history of previous pseudoarthrosis * Anesthesia risks: Particularly important given the patient's age (79 years) * Deep vein thrombosis and pulmonary embolism: Increased risk due to the extent of the surgery and potential for reduced mobility post-operatively Benefits: * Potential for significant pain relief and improved function * Correction of spinal instability and deformity * Decompression of neural elements, potentially improving neurological symptoms * Long-term stabilization of the spine, addressing both the failed previous fusion and the adjacent segment disease I have discussed these risks and benefits with the patient, and Mr. Santiago has expressed a desire to proceed with the surgical intervention as outlined. The patient was thoroughly counseled on the extensive nature of this revision surgery, the potential for complications, and the expected recovery process before proceeding. Description of Procedure: L3-S1 open Decompression and fusion (ashley) Revision with RENATO The patient was seen and examined in the preoperative area. All preoperative protocols were followed. Informed consent was obtained, risks and benefits of the procedure were discussed at length. Risks including bleeding infection damage to the surrounding tissue and risk of reoperation were discussed with the patient. Risk of anesthesia up to and including was discussed with the patient. These are outlined in the risk review. They were willing to accept these risks and all the risks of surgery. The patient was given a weight-based dose of antibiotics in the form of 2 g Ancef. The patient was seen and evaluated by the anesthesia team who deemed them fit for surgery. The site was marked, the patient was willing to proceed with the procedure. The patient was transferred to the operative suite by the Department of anesthesia. They were then drifted off to sleep by the department anesthesia and GETA was performed. The patient tolerated this well. Diop catheter was placed by nursing staff, a-traumatically. Once confirmation of lines and ventilation the patient was transferred to a prone Esdras table very carefully. All bony prominences including wrists, elbows, axilla, chest, hips, and thighs, and feet were padded very well. Special attention was paid to the genitalia, and these were padded accordingly. SCDs were placed on bilateral lower extremities and were connected. Arms were well padded and placed on arm boards up and out in the 90/90 position. Once in position, again we confirmed good ventilation capabilities and that lines were running appropriately. The patients Lumbar spine was then exposed. 1010s were placed outlining the in cision site. Standard alcohol was used to clean the incision site and allowed to dry. C-arm was used to needle localize the pedicles at L4-S1 and bio-onur the patient and confirm level for incision which was marked with a skin marker. Operative briefing was performed with all teams and everyone in agreement to proceed. The patient was then prepped and draped in a normal sterile fashion. Timeout was then performed, and all parties agreed with the procedure to be performed. Midline skin incision was made over the previously bio-marked area and dissection taken down over the SP of L3-S1. L3-S1 was taken out over facet joints and TPs and a penfield 4 used to onur the L4 pedicle. Lateral image used to confirm levels. Old hardware was identified and set screws and rods removed. Screws were all loose at this point and came out easily. All previous hardware was then removed posteriorly. Once this was accomplished, screws were proceeded to be placed b/l at pedicles in new positions from L3-S1 using [employer] Navigation. An SP clamp was used, 3D C arm spin obtained and confirmed to be accurate. Once this was confirmed screws were placed using a navigated crystal, navigated awl-tap and navigated milk truck driver. We then turned attention to the pelvic screws bilaterally were was used to make a boat pilot hole using navigation and a modified Rojas approach to the pelvic screw around the S2 pseudofacet. We then passed an awl tip tap under navigated milk truck driver. This was then sounded with a ball-tipped probe and had good randolph. We then used the navigated bur to create a S2 approached screw over the S2 pseudofacet crossing the SI joint. This was sounded with a ball tip probe and had good randolph. We then measured and selected SI bone screws for these. The pelvic screw was placed 10.5 mm x 80 mm and had good purchase under navigation. This was then done with the second SI screw on this side. We then repeated this on the contralateral side. Screws had good purchase. Inlet and outlet views as well as lateral confirmed placement of screws as well as SI joint crossing. Once screws were placed they were confirmed to be in good position using AP and Lateral fluoroscopy. The wound was then irrigated. Screws were tested and all tested above 20 mA. We then proceeded to decompression and cage placement. Attention was then turned to interbody fusion at L5-S1. There was still motion at this segment due to pseudoarthrosis as well ast L4-5. Bilateral laminectomy, complete facetectomy and foraminotomy performed at L5-S1 using high speed crystal and Kerrison rongure. The ligamentum was removed and the dural sac decompressed. Exiting and traversing roots visualized and decompressed. Neural elements were then protected, and disc space accessed with an osteotome. Sequential shaving then done under lateral imaging and complete discectomy performed using ramon, pituitary and curette. Once good bleeding endplates accomplished and good height taoism with trials, a combination of autograft, allograft and synthetic placed anterior in the disc space. The cage was then selected and impacted into place under lateral imaging. The cage was then expanded restoring height, lordosis and alignment. The cage was backfilled with bone graft through a funnel. The police chief deputy was removed and the area inspected. Good cage placement, stable cage and no injuries. Area was irrigated copiously, and meticulous hemostasis achieved. The tubular retractor was then removed under direct visualization. Attention was then turned to interbody fusion at L3-4 since there was already a cage at L4-5. Bilateral laminectomy, complete facetectomy and foraminotomy performed at L3-4 using high speed crystal and Kerrison rongeur. The ligamentum was removed and the dural sac decompressed. Exiting and traversing roots visualized and decompressed. Neural elements were then protected, and disc space accessed with an osteotome. Sequential shaving then done under lateral imaging and complete discectomy performed using ramon, pituitary and curette. Once good bleeding endplates accomplished and good height taoism with trials, a combination of autograft, allograft and synthetic placed anterior in the disc space. The cage was then selected and impacted into place under lateral imaging. The cage was then expanded restoring height, lordosis and alignment. The cage was backfilled with bone graft through a funnel. The police chief deputy was removed and the area inspected. Good cage placement, stable cage and no injuries. Area was irrigated copiously, and meticulous hemostasis achieved. The wound and disc spaces were irrigated and meticulous hemostasis achieved. Laminectomy was completed at L4-5 as well using high speed crystal and kerrison rongeur for complete decompression from L3-S1 Rods were then sized and selected and placed into bilateral pelvic screws. Set screws locked these in place and then sequentially reduced into L5, L4 and L3 b/l for reduction of listhesis. This was accomplished. Set screws were then all placed and final tightened. A cross link was selected and placed and final tightened. TPs were then decorticated with a high speed crystal. The wound was irrigated with 3L acne irrigation, 3L gentamicin irrigation Irricept x2 and Betadine x1 and 3L NSS. Surgical was placed over the dura. Autograft DBM and MagnatOs then placed in the posterolateral gutters and i mpacted into place. Deep drain placed and secured to the skin. Final images confirmed good placement of hardware and good reduction of listhesis as well as taoism of height and lordosis. Fascia was then closed with #1 PDS. Deep subq closed with 0 Vicryl. Superficial subq closed with 2-0 Vicryl and skin with huyen. Wound edges approximated very well. Wound was then cleaned with alcohol and dried. Wounds dressed with adaptic, 4x4, abd and medipore tape. The patient was then transferred off the table back to their hospital bed a- traumatically. Drains continued to hold suction. They were extubated by the department of anesthesia. They were then transferred to PACU in stable condition having tolerated the procedure with no complications.
[2024-09-14] MEDS: amLODIPine 5 MG TAB PO SCH (07:40)
[2024-09-14] MEDS: METOPROLOL TARTRATE 25 MG TAB PO SCH (07:40)
[2024-09-14 08:36] LABS: Basophils # (A) 0.02 X 10*3/uL (0.00-0.10); Basophils % (A) 0.1 %; Eosinophils # (A) 0.01 X 10*3/uL (0.04-0.35); Eosinophils % (A) 0.1 %; HGB 10.7 g/dL (13.0-17.0); Lymphocytes % (A) 8.9 %; MCH 30.7 pg (27.0-32.0); MCHC 31.5 g/dL (32.0-37.0); MCV 97.7 FL (80.0-97.0); Mean Platelet Volume 9.5 FL (9.5-12.2); Monocytes # (A) 1.04 X 10*3/uL (0.20-1.00); Monocytes % (A) 7.7 %; NRBC Per 100 WBC 0 X 10*3/uL (0.00-0.01); Neutrophils # (A) 11.21 X 10*3/uL (1.80-7.70); Neutrophils % (A) 82.8 %; Platelet Count 195 X 10*3/uL (140-440); RBC 3.48 X 10*6/uL (4.40-5.60); RDW 14.8 % (11.5-14.5); WBC 13.53 X 10*3/uL (4.50-10.00)
--- NOTE | 2024-09-14 08:55 | P.PN ---
Subjective Progress Note Date: 09/14/24 Principal diagnosis: 1.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 LE weakness b/l 4. Low back pain Patient seen and examined this morning. Patient has not been up since procedure. He does report that his pain is managed on current regimen. Surgical incision to the lumbar spine, dressing is clean dry and intact with Hemovac present with 200 mL output overnight. Informed patient that physical therapy will be in to work with him this morning. Patient does have LSO brace at bedside, although he will need an kettle operator that I will bring over either later today versus tomorrow 09/15/2024. Patient may be up without brace to work with physical therapy. Patient states he is unable to determine if there has been improvement into his lower extremities since the procedure due to not being up and about. Braxton catheter may be discontinued this morning. No acute concerns. Objective - Vital Signs Vital signs: Vital Signs Temp 98.5 F 09/14/24 07:25 Pulse 75 09/14/24 07:25 Resp 17 09/14/24 07:25 BP 95/61 09/14/24 07:25 Pulse Ox 93 L 09/14/24 07:25 FiO2 Intake & Output 09/13/24 09/14/24 09/14/24 18:59 06:59 18:59 Intake Total 3202 Output Total 932 450 Balance 2270 -450 Weight 128 kg Intake: IV 3202 Output: Drainage 200 Lower Back 200 Urine 350 250 Estimated Blood Loss 582 Other: Voiding Method Indwelling Catheter Indwelling Catheter - Exam Physical Examination General: The patient is awake and alert, in no acute distress Skin: Skin is warm and dry with no obvious rashes or lesions. Surgical incision to the lumbar spine, dressing is clean dry intact with Hemovac present with 200 mL output overnight. Eye: Pupils are equal, round and reactive to light, extra-ocular movements are intact; there is normal conjunctiva bilaterally. Neck: The neck is supple, there is no tenderness and ROM intact. Cardiovascular: There is a regular rate and rhythm. No murmur, rub or gallop is appreciated. Respiratory: Respirations are non-labored, breath sounds are equal. Gastrointestinal: Soft, non-distended, non-tender abdomen. Back: There is no tenderness to palpation in the midline, paralumbar, parathoracic or buttocks region. There is no obvious deformity . Musculoskeletal: ROM limited secondary to pain and stiffness from surgical procedure. Right: Shoulder abduction 5/5, elbow flexors 5/5, wrist dorsiflexors 5/5. finger abductor 5/5, tube lancer 5/5, hip flexor 4/5, knee flexor 4/5, ankle dorsiflexor 4/5, ankle plantarflexion 4/5 and extensor hallucis 4/5. Left: Shoulder abduction 5/5, elbow flexors 5/5, wrist dorsiflexors 5/5. finger abductor 5/5, tube lancer 5/5, hip flexor 4/5, knee flexor 4/5, ankle dorsiflexor 4/5, ankle plantarflexion 4/5 and extensor hallucis 4/5. Neurological: CN 2-12 intact. There are no obvious motor or sensory deficits. Movement and coordination equal and intact. Sensory exam to light touch intact C5-T1 and intact from L2-S1. Reflexes 2/4 in bilateral upper and lower e xtremities. Negative Hoffmans, babinski, and clonus signs. Psychiatric: Cooperative, appropriate mood & affect, normal judgment. - Labs CBC & Chem 7: 09/14/24 03:57 09/13/24 17:21 Labs: Abnormal Lab Results - Last 24 Hours (Table) 09/13/24 09/13/24 09/13/24 Range/Units 10:05 17:21 17:21 WBC 15.6 H (3.8-10.6) k/uL RBC 4.05 L (4.30-5.90) m/uL Hgb 12.7 L (13.0-17.5) gm/dL Sodium 136 L (137-145) mmol/L Potassium 5.2 H (3.5-5.1) mmol/L Glucose 112 H 150 H (74-99) mg/dL Calcium 8.2 L (8.4-10.2) mg/dL Assessment and Plan Assessment: Postop day 1: Revision [id number] decompression and fusion Plan: -Appreciate spa consultant and team management. -Activity: Ambulate QID, OOB all meals, up and about, limit lifting bending twisting to less than 5 lbs. Use walker or cane if needed for stability. -Daily PT/OT, increase ambulation strength and balance. -Brace when up and about, not needed in bed or chair - Extension for brace will be brought over from our office either later today versus tomorrow 09/15/2024. Patient may be up without brace to work with physical therapy. -Pain control: Adequate at this time -Meds: reviewed -GI ppx: senna, Miralax -PATRICIA braxton this morning. -DVT PPX: Aspirin 81mg -Hygiene: Shower today. Maintain dressing clean and dry. Meticulous cleaning after BMs away from the incision site -Drains: Maintain for now. Continue to monitor and record output q shift. -Encourage IS 10x/hr -Dispo: Anticipate discharge in the next 48hrs. *I reviewed and discussed this case with my attending Dr. Bowles, whom has reviewed this chart and films and is in agreement with assessment and plan of care as outlined above. I have personally seen and examined the patient, performed the documentation and the assessment and plan as written. Number of minutes spent on the visit: 20m.
[2024-09-14] MEDS ORDERED: FUROSEMIDE 20 MG TAB PO SCH (09:00)
[2024-09-14 09:14] LABS: BUN/Creat Ratio 16.22 Ratio (12.00-20.00); Blood Urea Nitrogen 14.6 mg/dL (9.0-27.0); Carbon Dioxide 24.9 mmol/L (21.6-31.8); Chloride 106 mmol/L (96-109); Glucose 113 mg/dL (70-110); Potassium 4.8 mmol/L (3.5-5.5); Sodium 139 mmol/L (135-145)
--- NOTE | 2024-09-14 09:16 | CT ---
EXAMINATION TYPE: CT lumbar spine wo con DATE OF EXAM: 09/14/2024 8:56 AM COMPARISON: 06/04/2020 CLINICAL INDICATION: Male, 79 years old with history of Post-op Revision L3-Pelvis decompression fu shelby; [facility], Post op Revision L3-Pelvis decompression and fusion TECHNIQUE: Unenhanced CT of the lumbar spine was performed. Bone and soft tissue window settings are submitted as well as coronal and sagittal reconstructions. CT DLP: 2304.[address] CTDI: mGy Automated exposure control for dose reduction was used. FINDINGS: Vacuum disc are seen at numerous levels surgically noted at T12-L1, L1 -2 and L2-L3 compatible with d isc disease. Circumferential disc bulging is noted. Most pronounced at L1-2. Mild central stenosis at L2-3. Bilateral foraminal. Cannot exclude a central disc protrusion. Postsurgical changes extending from levels L3-S1 extensive artifact results in nondiagnostic assessme nt. Disc spacers, transpedicular screws and stabilization rods are noted to be in position. Disc spac er at L5-S1 somewhat anteriorly placed. No abnormal lucencies surrounding the hardware to suggest mal function. Minimal anterior listhesis L4-L5. Within the posterior soft tissues there is evidence of a surgical staple line. A drain or lead is seen extending toward the spinal canal paramedian to the rig ht. Tip of the structure is obscured by artifact from metallic hardware. Air in the soft tissues and retroperitoneum likely is postsurgical. Correlate clinically to exclude i nfectious etiology. Rounded lucency involving the right iliac bone likely postsurgical. Additional surgical hardware is s een extending across bilateral iliac bone. Diverticulosis of the colon. Simple appearing left renal c yst measuring 1 Hounsfield unit. The spleen is not identified in the left upper quadrant. Trace amoun t of fluid in the pelvis. IMPRESSION: 1. Postsurgical changes with no diagnostic evidence of hardware malfunction. Air in soft tissues like ly postsurgical. Correlate clinically to exclude other etiologies. 2. Severe degenerative disc disease T12-L3. Multilevel disc bulging or protrusion at these levels as discussed above. [facility], , 09/14/2024 9:13 AM
[2024-09-14] MEDS: ASPIRIN 81 MG PO SCH (09:19)
[2024-09-14] MEDS: ACETAMINOPHEN TAB 325 MG TAB PO PRN (09:19)
[2024-09-14] MEDS: guaiFENesin 600 MG TABLET.ER PO PRN (09:34)
--- NOTE | 2024-09-14 15:02 | P.PN ---
Subjective Progress Note Date: 09/14/24 Hospital course: Patient is a pleasant 79-year-old male with a past medical history of hypertension, obstructive sleep apnea CPAP dependent nightly, prostate cancer with urinary incontinence secondary to cancer treatments, and chronic lumbar back pain with bilateral lower extremity weakness and radiculopathies. Is currently admitted under orthospine surgery team status post L3-Pelvis revision decompression and fusion with biomechanical cage placement and removal of segmental hardware completed by Dr. Bowles on 09/13/24. We were consulted for medical management throughout hospitalization. Physical exam: Patient seen and fully evaluated at bedside this morning. He reports feeling great. Patient reports mild postoperative burning at incision site otherwise states pain is controlled. He reports feeling increased strength in his lower extremities and was able to ambulate further today than he was prior to the surgery. Patient denies any other complaints including headache, lightheadedness, dizziness, chest pain, palpitations, shortness of breath, or experiencing any focal weakness or numbness in extremities. Diop catheter remains in place. Hemovac drain in place. General: Nontoxic, no distress and appears stated age. Derm: Skin warm and dry, normal coloration for ethnicity. Surgical dressing in place lumbar spine with Hemovac drain with dark colored bloody drainage in chamber. Head: Atraumatic, normocephalic and symmetric. Eyes: EOM's intact, no lid lag, and anicteric sclera Mouth: no lip lesions, mucus membranes moist Cardiovascular: regular rate and rhythm with normal S1S2, soft systolic murmur, positive posterior tibial pulses bilaterally, and cap refill < 2 seconds. Lungs: Respirations even, regular, and unlabored on room air. Lungs CTA bilaterally, no rhonchi, no rales, no wheezing, and no accessory muscle usage. Abdominal: soft, nontender to palpation, no guarding. Catheter in place with clear straw-colored urine in collection bag. Ext: ROM intact. No gross muscle atrophy, no edema, no contractures Neuro: Speech clear, face symmetrical and CN II-XII grossly intact with no noted focal neuro deficits Psych: Alert and oriented to person, place, time, and situation. Appropriate and pleasant affect. Assessment and Plan of Care: Status post L3 through pelvis revision -Management per primary admitting orthospine surgery team including DVT prophylaxis, pain management, wound/dressing/drain management, and PT/OT. -Currently DVT prophylaxis with aspirin 81 mg daily, PAMELA hose, and SCDs. Acute postoperative blood loss anemia -Stable and expected finding. Preoperative hemoglobin of 12.7 and postoperative hemoglobin of 10.7. No need for transfusion or further intervention at this time. Will continue to monitor with repeat morning CBC. Hypertension -Continue daily medication regimen with amlodipine 5 mg daily, furosemide 20 mg daily, and metoprolol 25 mg daily. Obstructive sleep apnea -Continue CPAP nightly and while napping. History of prostate cancer with chronic urinary incontinence -Patient currently with Diop catheter, to be removed once cleared by primary admitting orthospine surgery team for voiding challenge. -Patient with known urinary incontinence, but denies difficulties with retention. Data and imaging reviewed: -Postoperative labs reviewed. CBC showing leukocytosis with WBC count of 13.53 and acute postoperative blood loss anemia with hemoglobin of 10.7 from preoperative hemoglobin of 12.7. BMP unremarkable. Blood glucose 113. -Vital signs reviewed. Blood pressure soft at 95/61 this morning, heart rate 75, respiratory rate 17, temp 98.5 F, and SpO2 of 93% on 2 L. Thank you for allowing us to participate in the care of this pleasant patient. Do not hesitate to contact us with questions. Someone can be reached from the [facility] hospitalist group all hours of the day at [phone] or via [email or web address]. Patient was seen independently by Nurse Pracitioner. This document was prepared using [employer] dictation software. Please allow for errors in toll bridge attendant, while rare they do occur. Arjun Vazquez NP rendered care for this patient independently, reviewed the findings and plan as documented in the note above. I did not physically speak with or examine the patient on this date. Objective - Vital Signs Vital signs: Vital Signs Temp 98.5 F 09/14/24 07:25 Pulse 75 09/14/24 07:25 Resp 17 09/14/24 07:25 BP 95/61 09/14/24 07:25 Pulse Ox 93 L 09/14/24 07:25 FiO2 Intake & Output 09/13/24 09/14/24 09/14/24 18:59 06:59 18:59 Intake Total 3202 Output Total 932 450 Balance 2270 -450 Weight 128 kg Intake: IV 3202 Output: Drainage 200 Lower Back 200 Urine 350 250 Estimated Blood Loss 582 Other: Voiding Method Indwelling Catheter Indwelling Catheter - Labs CBC & Chem 7: 09/14/24 03:57 09/14/24 03:57 Labs: Abnormal Lab Results - Last 24 Hours (Table) 09/13/24 09/13/24 09/13/24 Range/Units 10:05 17:21 17:21 WBC 15.6 H (3.8-10.6) k/uL RBC 4.05 L (4.30-5.90) m/uL Hgb 12.7 L (13.0-17.5) gm/dL Hct (39.6-50.0) % MCV (80.0-97.0) FL MCHC (32.0-37.0) g/dL RDW (11.5-14.5) % Immature Gran # (0.00-0.04) X 10*3/uL Neutrophils # (1.80-7.70) X 10*3/uL Monocytes # (0.20-1.00) X 10*3/uL Eosinophils # (0.04-0.35) X 10*3/uL Sodium 136 L (137-145) mmol/L Potassium 5.2 H (3.5-5.1) mmol/L Glucose 112 H 150 H (74-99) mg/dL Calcium 8.2 L (8.4-10.2) mg/dL 09/14/24 09/14/24 Range/Units 03:57 03:57 WBC 13.53 H (3.8-10.6) k/uL RBC 3.48 L (4.30-5.90) m/uL Hgb 10.7 L (13.0-17.5) gm/dL Hct 34.0 L (39.6-50.0) % MCV 97.7 H (80.0-97.0) FL MCHC 31.5 L (32.0-37.0) g/dL RDW 14.8 H (11.5-14.5) % Immature Gran # 0.05 H (0.00-0.04) X 10*3/uL Neutrophils # 11.21 H (1.80-7.70) X 10*3/uL Monocytes # 1.04 H (0.20-1.00) X 10*3/uL Eosinophils # 0.01 L (0.04-0.35) X 10*3/uL Sodium (137-145) mmol/L Potassium (3.5-5.1) mmol/L Glucose 113 H (74-99) mg/dL Calcium 8.0 L (8.4-10.2) mg/dL
--- NOTE | 2024-09-15 08:12 | P.PN ---
Subjective Progress Note Date: 09/15/24 Principal diagnosis: 1.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 LE weakness b/l 4. Low back pain Patient seen and examined this morning. Patient is sitting up in chair at bedside. He does report that his pain is managed on current regimen. Surgical incision to the lumbar spine, dressing is clean dry and intact with Hemovac present with 180 mL output overnight. He reports he has been up and ambulating with his walker and standby assist. Patient states he is tolerating activity well. Patient does have LSO brace at bedside, although he will need an navy material inspector that I will bring over either later today. Patient may be up without brace to work with physical therapy. Patient states he has noticed improvement of his back pain and feeling more stable in his back since the procedure. Patient states he is excited for his recovery. No acute concerns. Objective - Vital Signs Vital signs: Vital Signs Temp 98.7 F 09/15/24 00:49 Pulse 67 09/15/24 00:49 Resp 18 09/15/24 00:49 BP 111/71 09/15/24 00:49 Pulse Ox 95 09/15/24 00:49 FiO2 Intake & Output 09/14/24 09/15/24 09/15/24 18:59 06:59 18:59 Output Total 620 500 Balance -620 -500 Output: Drainage 120 Lower Back 120 Urine 500 500 Uretheral (Diop) 250 Other: Voiding Method Indwelling Catheter Indwelling Catheter # Voids 3 - Exam Physical Examination General: The patient is awake and alert, in no acute distress Skin: Skin is warm and dry with no obvious rashes or lesions. Surgical incision to the lumbar spine, dressing is clean dry intact with Hemovac present with 180 mL output overnight. Eye: Pupils are equal, round and reactive to light, extra-ocular movements are intact; there is normal conjunctiva bilaterally. Neck: The neck is supple, there is no tenderness and ROM intact. Cardiovascular: There is a regular rate and rhythm. No murmur, rub or gallop is appreciated. Respiratory: Respirations are non-labored, breath sounds are equal. Gastrointestinal: Soft, non-distended, non-tender abdomen. Back: There is no tenderness to palpation in the midline, paralumbar, parathoracic or buttocks region. There is no obvious deformity . Musculoskeletal: ROM limited secondary to pain and stiffness from surgical procedure. Right: Shoulder abduction 5/5, elbow flexors 5/5, wrist dorsiflexors 5/5. finger abductor 5/5, energy trading analyst 5/5, hip flexor 4/5, knee flexor 4/5, ankle dorsiflexor 4/5, ankle plantarflexion 4/5 and extensor hallucis 4/5. Left: Shoulder abduction 5/5, elbow flexors 5/5, wrist dorsiflexors 5/5. finger abductor 5/5, energy trading analyst 5/5, hip flexor 4/5, knee flexor 4/5, ankle dorsiflexor 4/5, ankle plantarflexion 4/5 and extensor hallucis 4/5. Neurological: CN 2-12 intact. There are no obvious motor or sensory deficits. Movement and coordination equal and intact. Sensory exam to light touch intact C5-T1 and intact from L2-S1. Reflexes 2/4 in bilateral upper and lower extremities. Negative Hoffmans, babinski, and clonus signs. Psychiatric: Cooperative, appropriate mood & affect, normal judgment. - Labs CBC & Chem 7: 09/14/24 03:57 09/14/24 03:57 Labs: Abnormal Lab Results - Last 24 Hours (Table) 09/14/24 09/14/24 Range/Units 03:57 03:57 WBC 13.53 H (4.50-10.00) X 10*3/uL RBC 3.48 L (4.40-5.60) X 10*6/uL Hgb 10.7 L (13.0-17.0) g/dL Hct 34.0 L (39.6-50.0) % MCV 97.7 H (80.0-97.0) FL MCHC 31.5 L (32.0-37.0) g/dL RDW 14.8 H (11.5-14.5) % Immature Gran # 0.05 H (0.00-0.04) X 10*3/uL Neutrophils # 11.21 H (1.80-7.70) X 10*3/uL Monocytes # 1.04 H (0.20-1.00) X 10*3/uL Eosinophils # 0.01 L (0.04-0.35) X 10*3/uL Glucose 113 H (70-110) mg/dL Calcium 8.0 L (8.7-10.3) mg/dL Assessment and Plan Assessment: Postop day 2: Revision [id number] decompression and fusion Plan: -Appreciate executive consultant and team management. -Activity: Ambulate QID, OOB all meals, up and about, limit lifting bending twisting to less than 5 lbs. Use walker or cane if needed for stability. -Daily PT/OT, increase ambulation strength and balance. -Brace when up and about, not needed in bed or chair - Extension for brace will be brought over from our office either later today versus tomorrow 09/15/2024. Patient may be up without brace to work with physical therapy. -Pain control: Adequate at this time -Meds: reviewed -GI ppx: senna, Miralax -DVT PPX: Aspirin 81mg -Hygiene: Shower today. Maintain dressing clean and dry. Meticulous cleaning after BMs away from the incision site -Drains: Maintain for now. Continue to monitor and record output q shift. -Encourage IS 10x/hr -Dispo: Anticipate discharge in the next 24-48hrs. Patient is wanting to go home with homecare. *I reviewed and discussed this case with my attending Dr. Bowles, whom has reviewed this chart and films and is in agreement with assessment and plan of care as outlined above. I have personally seen and examined the patient, performed the documentation and the assessment and plan as written. Number of minutes spent on the visit: 20m.
[2024-09-15 08:29] LABS: HCT 30.9 % (39.6-50.0); HGB 9.7 g/dL (13.0-17.0); MCH 30.8 pg (27.0-32.0); MCHC 31.4 g/dL (32.0-37.0); MCV 98.1 FL (80.0-97.0); Mean Platelet Volume 9.8 FL (9.5-12.2); NRBC Per 100 WBC 0 X 10*3/uL (0.00-0.01); Platelet Count 152 X 10*3/uL (140-440); RBC 3.15 X 10*6/uL (4.40-5.60); RDW 14.9 % (11.5-14.5); WBC 13.09 X 10*3/uL (4.50-10.00)
[2024-09-15 08:40] LABS: Blood Urea Nitrogen 17.9 mg/dL (9.0-27.0); Calcium 7.8 mg/dL (8.7-10.3); Carbon Dioxide 24.5 mmol/L (21.6-31.8); Chloride 105 mmol/L (96-109); Glucose 118 mg/dL (70-110); Magnesium 1.9 mg/dL (1.5-2.4); Potassium 4.4 mmol/L (3.5-5.5); Sodium 137 mmol/L (135-145)
--- NOTE | 2024-09-15 14:45 | P.PN ---
Subjective Progress Note Date: 09/15/24 Hospital course: Patient is a pleasant 79-year-old male with a past medical history of hypertension, obstructive sleep apnea CPAP dependent nightly, prostate cancer with urinary incontinence secondary to cancer treatments, and chronic lumbar back pain with bilateral lower extremity weakness and radiculopathies. Is currently admitted under orthospine surgery team status post L3-Pelvis revision decompression and fusion with biomechanical cage placement and removal of segmental hardware completed by Dr. Bowles on 09/13/24. We were consulted for medical management throughout hospitalization. Physical exam: Patient seen and fully evaluated at bedside this morning. He reports feeling good this morning. He reports mild postoperative pain currently rated 2-3 out of 10 and denies having any other complaints or needs at this time.. Diop catheter remains in place. Hemovac drain in place. General: Nontoxic, no distress and appears stated age. Derm: Skin warm and dry, normal coloration for ethnicity. Surgical dressing in place lumbar spine with Hemovac drain with dark colored bloody drainage in chamber. Head: Atraumatic, normocephalic and symmetric. Eyes: EOM's intact, no lid lag, and anicteric sclera Mouth: no lip lesions, mucus membranes moist Cardiovascular: regular rate and rhythm with normal S1S2, soft systolic murmur, positive posterior tibial pulses bilaterally, and cap refill < 2 seconds. Lungs: Respirations even, regular, and unlabored on room air. Lungs CTA bilaterally, no rhonchi, no rales, no wheezing, and no accessory muscle usage. Abdominal: soft, nontender to palpation, no guarding. Catheter in place with clear straw-colored urine in collection bag. Ext: ROM intact. No gross muscle atrophy, no edema, no contractures Neuro: Speech clear, face symmetrical and CN II-XII grossly intact with no noted focal neuro deficits Psych: Alert and oriented to person, place, time, and situation. Appropriate and pleasant affect. Assessment and Plan of Care: Status post L3 through pelvis revision -Management per primary admitting orthospine surgery team including DVT prophylaxis, pain management, wound/dressing/drain management, and PT/OT. -Currently DVT prophylaxis with aspirin 81 mg daily, PAMELA hose, and SCDs. Acute postoperative blood loss anemia -Stable and expected finding. Preoperative hemoglobin of 12.7 and current hemoglobin of 9.7. No need for transfusion or further intervention at this time. Will continue to monitor with repeat morning CBC. Hypertension -Continue daily medication regimen with amlodipine 5 mg daily, furosemide 20 mg daily, and metoprolol 25 mg daily. Obstructive sleep apnea -Continue CPAP nightly and while napping. History of prostate cancer with chronic urinary incontinence -Patient currently with Diop catheter, to be removed once cleared by primary admitting orthospine surgery team for voiding challenge. -Patient with known urinary incontinence, but denies difficulties with retention. Data and imaging reviewed: -Morning labs reviewed.. CBC showing leukocytosis with WBC count of 13.09 and acute postoperative blood loss anemia with hemoglobin of 9.7 from preoperative hemoglobin of 12.7. BMP unremarkable. Blood glucose 118. Magnesium 1.9. -Vital signs reviewed. Blood pressure 127/72, heart rate 63, respiratory rate 18, temp 98.0 F, and SpO2 of 97% on 2 L. Thank you for allowing us to participate in the care of this pleasant patient. Do not hesitate to contact us with questions. Someone can be reached from the [facility] hospitalist group all hours of the day at [phone] or via [employer]. Patient was seen independently by Nurse Pracitioner. This document was prepared using [employer] dictation software. Please allow for errors in continuous mining operator, while rare they do occur. Arjun Vazquez NP rendered care for this patient independently, reviewed the findings and plan as documented in the note above and agree with plan. I did not physically speak with or examine the patient on this date. Objective - Vital Signs Vital signs: Vital Signs Temp 98.7 F 09/15/24 00:49 Pulse 67 09/15/24 00:49 Resp 18 09/15/24 00:49 BP 111/71 09/15/24 00:49 Pulse Ox 95 09/15/24 00:49 FiO2 Intake & Output 09/14/24 09/15/24 09/15/24 18:59 06:59 18:59 Output Total 620 500 180 Balance -620 -500 -180 Output: Drainage 120 180 Lower Back 120 180 Urine 500 500 Uretheral (Diop) 250 Other: Voiding Method Indwelling Catheter Indwelling Catheter # Voids 3 - Labs CBC & Chem 7: 09/15/24 03:36 09/15/24 03:36 Labs: Abnormal Lab Results - Last 24 Hours (Table) 09/14/24 09/15/24 09/15/24 Range/Units 03:57 03:36 03:36 WBC 13.09 H (4.50-10.00) X 10*3/uL RBC 3.15 L (4.40-5.60) X 10*6/uL Hgb 9.7 L (13.0-17.0) g/dL Hct 30.9 L (39.6-50.0) % MCV 98.1 H (80.0-97.0) FL MCHC 31.4 L (32.0-37.0) g/dL RDW 14.9 H (11.5-14.5) % Glucose 113 H 118 H (70-110) mg/dL Calcium 8.0 L 7.8 L (8.7-10.3) mg/dL
[2024-09-16 08:28] LABS: HCT 30.9 % (39.6-50.0); HGB 9.6 g/dL (13.0-17.0); MCH 30.9 pg (27.0-32.0); MCHC 31.1 g/dL (32.0-37.0); MCV 99.4 FL (80.0-97.0); Mean Platelet Volume 10.2 FL (9.5-12.2); NRBC Per 100 WBC 0 X 10*3/uL (0.00-0.01); Platelet Count 164 X 10*3/uL (140-440); RBC 3.11 X 10*6/uL (4.40-5.60); RDW 14.8 % (11.5-14.5); WBC 11.69 X 10*3/uL (4.50-10.00)
[2024-09-16 08:43] LABS: Calcium 7.9 mg/dL (8.7-10.3); Carbon Dioxide 25.9 mmol/L (21.6-31.8); Chloride 105 mmol/L (96-109); Glucose 128 mg/dL (70-110); Magnesium 1.9 mg/dL (1.5-2.4); Potassium 4.4 mmol/L (3.5-5.5); Sodium 138 mmol/L (135-145)
--- NOTE | 2024-09-16 10:04 | P.PN ---
Subjective Progress Note Date: 09/16/24 Principal diagnosis: 1.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 LE weakness b/l 4. Low back pain Patient was seen at bedside this morning sitting up in chair with dressing and Hemovac drain in place over lumbar spine. Patient says he has been doing fairly well since surgery and does note continued improvement over the past couple days since surgery. He says he has been getting up with therapy and walk around the room with brace on while he is up. Patient says he does have history of urinary continence and prostate cancer and does follow-up in the outpatient setting with Dr. Cheek for this. Patient says he is hoping to stay 1 more additional night in the hospital for additional pain control and therapy. Patient denies any other orthopedic complaints at this time. Objective - Vital Signs Vital signs: Vital Signs Temp 98.3 F 09/16/24 07:32 Pulse 92 09/16/24 07:32 Resp 20 09/16/24 07:32 BP 118/78 09/16/24 07:32 Pulse Ox 92 L 09/16/24 00:32 FiO2 Intake & Output 09/15/24 09/16/24 09/16/24 18:59 06:59 18:59 Output Total 390 610 Balance -390 -610 Output: Drainage 180 60 Lower Back 180 60 Urine 210 550 Other: Voiding Method Indwelling Catheter - Exam General: The patient is awake and alert, in no acute distress Skin: Skin is warm and dry with no obvious rashes or lesions. Surgical incision to the lumbar spine, dressing is clean dry intact with Hemovac present with 180 mL output overnight. Eye: Pupils are equal, round and reactive to light, extra-ocular movements are intact; there is normal conjunctiva bilaterally. Neck: The neck is supple, there is no tenderness and ROM intact. Cardiovascular: There is a regular rate and rhythm. No murmur, rub or gallop is appreciated. Respiratory: Respirations are non-labored, breath sounds are equal. Gastrointestinal: Soft, non-distended, non-tender abdomen. Back: There is no tenderness to palpation in the midline, paralumbar, parathoracic or buttocks region. There is no obvious deformity . Musculoskeletal: ROM limited secondary to pain and stiffness from surgical procedure. Right: Shoulder abduction 5/5, elbow flexors 5/5, wrist dorsiflexors 5/5. finger abductor 5/5, core assembly supervisor 5/5, hip flexor 4/5, knee flexor 4/5, ankle dorsiflexor 4/5, ankle plantarflexion 4/5 and extensor hallucis 4/5. Left: Shoulder abduction 5/5, elbow flexors 5/5, wrist dorsiflexors 5/5. finger abductor 5/5, core assembly supervisor 5/5, hip flexor 4/5, knee flexor 4/5, ankle dorsiflexor 4/5, ankle plantarflexion 4/5 and extensor hallucis 4/5. Neurological: CN 2-12 intact. There are no obvious motor or sensory deficits. Movement and coordination equal and intact. Sensory exam to light touch intact C5-T1 and intact from L2-S1. Reflexes 2/4 in bilateral upper and lower extremities. Negative Hoffmans, babinski, and clonus signs. Psychiatric: Cooperative, appropriate mood & affect, normal judgment. - Labs CBC & Chem 7: 09/16/24 03:26 09/16/24 03:26 Labs: Abnormal Lab Results - Last 24 Hours (Table) 09/16/24 09/16/24 Range/Units 03:26 03:26 WBC 11.69 H (4.50-10.00) X 10*3/uL RBC 3.11 L (4.40-5.60) X 10*6/uL Hgb 9.6 L (13.0-17.0) g/dL Hct 30.9 L (39.6-50.0) % MCV 99.4 H (80.0-97.0) FL MCHC 31.1 L (32.0-37.0) g/dL RDW 14.8 H (11.5-14.5) % Glucose 128 H (70-110) mg/dL Calcium 7.9 L (8.7-10.3) mg/dL Assessment and Plan Assessment: 1.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 LE weakness b/l 4. 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 Patient stable bedside this morning with dressing and drain present to the lumbar spine. Drain was removed at bedside this morning. New dressing was placed over incision. Incision appears to be healing well at this time. Rodo well aligned and intact. Continue working with PT/OT daily. Pain medication as needed. Brace on while up and about. Urology consulted due to history of urinary incontinence and prostate cancer. Plan for discharge home tomorrow with home care. 2. Appreciate medical and urology management 3. Pain management -Tylenol; [place]; gabapentin; Flexeril 4. DVT prophylaxis -aspirin 81 mg twice daily 5. GI prophylaxis -senna; Protonix 6. PT/OT -weightbearing as tolerated with walker and brace on while up and about 7. Encourage incentive spirometer use 8. Discharge planning -plan for discharge home tomorrow with home care Time with Patient: Less than 30
[2024-09-16] MEDS ORDERED: bisacodyL 5 MG TABLET.DR PO PRN (11:02)
[2024-09-16] MEDS: polyethylene glycoL 3350 17 GM POWD.PACK PO SCH (11:53)
--- NOTE | 2024-09-16 12:08 | P.PN ---
Subjective Progress Note Date: 09/16/24 Hospital course: Patient is a pleasant 79-year-old male with a past medical history of hypertension, obstructive sleep apnea CPAP dependent nightly, prostate cancer with urinary incontinence secondary to cancer treatments, and chronic lumbar back pain with bilateral lower extremity weakness and radiculopathies. Is currently admitted under orthospine surgery team status post L3-Pelvis revision decompression and fusion with biomechanical cage placement and removal of segmental hardware completed by Dr. Bowles on 09/13/24. We were consulted for medical management throughout hospitalization. Physical exam: Patient seen and fully evaluated at bedside this morning. He reports feeling tired and stiff this morning along with reports of constipation. He states postoperative pain currently rated 5 out of 10 at this time. Hemovac drain and braxton catheter removed this morning and post-op dressing was changed by orthopedic PA today. Pt urinating via external catheter as he has chronic incontinence s/p prostate cancer treatment. General: Nontoxic, no distress and appears stated age. Derm: Skin warm and dry, normal coloration for ethnicity. Surgical dressing in place lumbar spine, clean, dry, and intact. Head: Atraumatic, normocephalic and symmetric. Eyes: EOM's intact, no lid lag, and anicteric sclera Mouth: no lip lesions, mucus membranes moist Cardiovascular: regular rate and rhythm with normal S1S2, soft systolic murmur, positive posterior tibial pulses bilaterally, and cap refill < 2 seconds. Lungs: Respirations even, regular, and unlabored on room air. Lungs CTA bilaterally, no rhonchi, no rales, no wheezing, and no accessory muscle usage. Abdominal: soft, nontender to palpation, no guarding. . Ext: ROM intact. No gross muscle atrophy, no edema, no contractures Neuro: Speech clear, face symmetrical and CN II-XII grossly intact with no noted focal neuro deficits Psych: Alert and oriented to person, place, time, and situation. Appropriate and pleasant affect. Assessment and Plan of Care: Status post L3 through pelvis revision -Management per primary admitting orthospine surgery team including DVT prophylaxis, pain management, wound/dressing/drain management, and PT/OT. -Currently DVT prophylaxis with aspirin 81 mg daily, PAMELA hose, and SCDs. Constipation -Patient started on MiraLAX 17 g daily with as needed Dulcolax 5 mg daily for constipation. Acute postoperative blood loss anemia -Stable and expected finding. Hemoglobin remained stable at 9.6. No need for transfusion or further intervention at this time. Will continue to monitor with repeat morning CBC. Hypertension -Continue daily medication regimen with amlodipine 5 mg daily, furosemide 20 mg daily, and metoprolol 25 mg daily. Obstructive sleep apnea -Continue CPAP nightly and while napping. History of prostate cancer with chronic urinary incontinence -Braxton catheter was removed this morning and patient urinating via external catheter without any difficulties or reports of retention. -Patient with known urinary incontinence, but denies difficulties with retention. Data and imaging reviewed: -Morning labs reviewed.. CBC showing leukocytosis with WBC count of 11.69 and stanle postoperative blood loss anemia with hemoglobin of 9.6. BMP unremarkable. Blood glucose 128. Magnesium 1.9. -Vital signs reviewed. Blood pressure 118/78, heart rate 92, respiratory rate 20, temp 98.3 F, and SpO2 of 92% on room air. Thank you for allowing us to participate in the care of this pleasant patient. Do not hesitate to contact us with questions. Someone can be reached from the [facility] hospitalist group all hours of the day at [phone] or via [employer]. Patient was seen independently by Nurse Pracitioner. This document was prepared using [employer] dictation software. Please allow for errors in franchise manager, while rare they do occur. Arjun Vazquez NP rendered care for this patient independently, reviewed the findings and plan as documented in the note above and agree with plan. I did not physically speak with or examine the patient on this date. Objective - Vital Signs Vital signs: Vital Signs Temp 98.3 F 09/16/24 07:32 Pulse 92 09/16/24 07:32 Resp 20 09/16/24 07:32 BP 118/78 09/16/24 07:32 Pulse Ox 92 L 09/16/24 00:32 FiO2 Intake & Output 09/15/24 09/16/24 09/16/24 18:59 06:59 18:59 Output Total 390 610 Balance -390 -610 Output: Drainage 180 60 Lower Back 180 60 Urine 210 550 Other: Voiding Method Indwelling Catheter - Labs CBC & Chem 7: 09/16/24 03:26 09/16/24 03:26 Labs: Abnormal Lab Results - Last 24 Hours (Table) 09/15/24 09/16/24 Range/Units 03:36 03:26 WBC 11.69 H (4.50-10.00) X 10*3/uL RBC 3.11 L (4.40-5.60) X 10*6/uL Hgb 9.6 L (13.0-17.0) g/dL Hct 30.9 L (39.6-50.0) % MCV 99.4 H (80.0-97.0) FL MCHC 31.1 L (32.0-37.0) g/dL RDW 14.8 H (11.5-14.5) % Glucose 118 H (70-110) mg/dL Calcium 7.8 L (8.7-10.3) mg/dL
[2024-09-17 08:17] VITALS: BP 120/83; RESP 17; TEMP 97.6
[2024-09-17 09:34] LABS: BUN/Creat Ratio 13.44 Ratio (12.00-20.00); Blood Urea Nitrogen 12.1 mg/dL (9.0-27.0); Calcium 8.2 mg/dL (8.7-10.3); Carbon Dioxide 22.8 mmol/L (21.6-31.8); Chloride 103 mmol/L (96-109); Glucose 119 mg/dL (70-110); Magnesium 1.8 mg/dL (1.5-2.4); Potassium 4.3 mmol/L (3.5-5.5); Sodium 137 mmol/L (135-145)
[2024-09-17 09:36] LABS: HCT 32.2 % (39.6-50.0); MCH 31.3 pg (27.0-32.0); MCHC 31.1 g/dL (32.0-37.0); MCV 100.6 FL (80.0-97.0); Mean Platelet Volume 10.1 FL (9.5-12.2); NRBC Per 100 WBC 0 X 10*3/uL (0.00-0.01); Platelet Count 197 X 10*3/uL (140-440); RDW 14.7 % (11.5-14.5); WBC 11.31 X 10*3/uL (4.50-10.00)
--- NOTE | 2024-09-17 10:24 | P.DS ---
Providers Date of admission: 09/13/24 09:14 Expected date of discharge: 09/17/24 Attending physician: Grady Bowles DO Consults: 09/13/24 13:28 Consult Physician Routine Consulting Provider: Annie Kearns Consult Reason/Comments: Medical Management Do you want consulting provider notified?: Yes 09/16/24 09:20 Consult Physician Routine Consulting Provider: Romeo Cheek Consult Reason/Comments: history of urinary incontinence and prostate cancer Do you want consulting provider notified?: Yes Primary care physician: [facility] Hospital Course: Date of admission: 09/13/2024 Date of discharge: 09/17/2024 Admission diagnosis: 1.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 LE weakness b/l 4. Low back pain Discharge diagnosis: Same Attending physician: Dr. Bowles Surgical procedures: Revision [id number] decompression and fusion Brief history: Patient is a 79-year-old male with a history of lower extremity weakness bilaterally; low back pain; status post L4-S1 decompression and fusion with pseudoarthrosis migration of cages as well as L3-L4 severe stenosis and spondylosis. At this point patient has failed conservative treatment measures and has opted to proceed with a elective revision [id number] decompression and fusion. Hospital course: Details of patient's surgery can be found in operative report. Patient tolerated the procedure well and was subsequently transported to orthopedic floor. Patient's orthopeidc and medical care was provided daily. Dorcas damon had daily laboratory tests performed for evaluation of overall blood counts. Patient had daily physical therapy to include strengthening range of motion as well as education with walker ambulation. Patient was treated with aspirin for their postoperative DVT prophylaxis during their inpatient stay. Patient was noted to have a relatively uneventful postoperative course. Patient reported satisfactory pain control with oral pain medications by postoperative day 4. Patient showed satisfactory progress with physical therapy. Patient moved steadily through the program and had no difficulty meeting the goals by postoperative day 4. Given patient's otherwise satisfactory course and having met physical therapy goals, plan is to discharge patient home with home care on postoperative day 4. Discharge condition/disposition: Patient will be discharged home with home care in stable condition. 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 LE weakness b/l 4. Low back pain Procedure: Revision [id number] decompression and fusion Medications: See medication list All medication refills should be obtained through your primary care doctor or your clinic spine surgeon. Please discuss prescription refills at your follow up appointment. Do not call the hospital for medication refills. Dressing: Leave your dressing in place for a total of 5 days post operatively. Then you may remove your dressing and leave open to air. Keep the area clean and if not able to keep area clean, then cover with sterile gauze and tape. Showering: You may shower 3 days after your procedure allowing soap and water to run over incision. Do not scrub. Do not soak. Blot dry. Follow up: Please confirm a follow up appointment with your surgeon 3 weeks post operatively. Please make an appointment to follow up with your PCP in 1-2 weeks after surgery for evaluation '3 phase, 3-week plan' POST OP WEEKS 1-3 1. Lifting/carrying/pushing/pulling limited to less than 5 pounds. 2. Do not sit for longer than 15 minutes at one time. Get up and walk around. Prolonged sitting is NOT advised. If you lay down, see if you can tolerate laying down on you front (belly side) 3. Walk for periods of 15 minutes = 1 mile but no longer; do it multiple times times each day. 4. Ice your low back after activity. POST OP WEEKS 3-6 1. Lifting limited to less than 20 pounds. 2. Do not sit for longer than 30 minutes at a time. Frequently change positions. Use a sit-to stand workstation or take frequent breaks from sitting if you have returned to work. 3. Walk for 30 minutes each day. If possible, do these three or more times a day POST OP WEEKS 6+ At your 6-week appointment we will give you a physical therapy referral to focus on a core stabilization and strengthening program. You should also work on leg & buttock strengthening, hamstring & quadriceps stretching, and continue a low impact aerobic activity program such as swimming, walking, or riding a stationary bicycle. During the initial 6 weeks after your surgery, you are at the highest risk of re-injuring your spine. You should generally avoid BLT's (bending, lifting and twisting combination motions) and follow the above guidelines to reduce the chance of reinjury. You can anticipate post op appointments in our office at approximately 3 weeks and 6 weeks after your surgery. INCISION CARE: If your incision is not draining you do NOT need to cover it with a dressing. Keep your incision clean, dry and intact. In most cases, we apply skin glue, huyen or sutures to the incision at the time of surgery. This will be like a crust or have the appearance of a scab and will fall off in time on its own. The stitches or huyen need to be removed at 3 weeks post op appointment. You may begin to shower 3 days after surgery (this allows the glue to salas well). However, please avoid scrubbing the incision site or peeling off any of the skin glue. This will ensure optimal healing of your incision. Also, during this time avoid soaking the incision area in water - this includes swimming pools, hot tubs or baths. No ointments, lotions or oils on the incision until your surgeon allows. Leave huyen, sutures or glue in place. Neurological dysfunction that comes on suddenly can also be a sign of a stroke. Below some common symptoms of a stroke are listed: B - balance difficulty such as sudden onset walking or leaning to one side - NEW E - eye problem such as sudden double vision or trouble seeing on one side - NEW F - Facial weakness or numbness on one side - NEW A - Arm or leg weakness or numbness on one side - NEW S - Slurred speech or difficulty with word finding - NEW T - Time is BRAIN! Call 911 as soon as you recognize these symptoms Diet: Consume a regular diet rich in vegetables and lean protein such as chicken or fish. You should consume in a ratio of approximately 20% fats|40% carbohydrates|40%protein. Vegetables, sweet potatoes, brown rice or quinoa are examples of good carbohydrates. Chips, white bread, cookies and sweets/sugar are examples of bad carbohydrates. Limit your bad carbs, go wild with good carbs. "Life's Simple 7" Guidelines as per [employer] These will help you reclaim your life after surgery and rotary driller helper in your recovery, keeping in mind your restrictions. (1) Get Active. Physical activity can help people lose weight, control high blood pressure and cholesterol, feel emotionally better, and sleep better. (2) Control Cholesterol. Avoid a diet high in saturated fat, trans fat, & cholesterol. Limit whole milk & cream, ice cream, butter, egg yolks, processed meats (like sausage and hot dogs), and fatty meats. Choose healthy foods that are low in saturated fat, trans fat and cholesterol which include: Fruits and vegetables, fiber rich grain products (like whole grain pasta and brown rice), lean meat such as chicken, fish, nuts, seeds, and legumes. (3) Eat Better. Eat small portions. Shop at the grocery with a list and do not stray from it. Tips for a healthy diet include: Limit sodium intake to less than 1500mg daily, avoid prepackaged, processed, and fast foods, choose a diet rich in fruits, vegetables, and whole grain, high fiber foods, and limit saturated & cholesterol in your diet. (4) Manage Blood Pressure. If you have high blood pressure, you should have a cuff at home so that you can check your blood pressure regularly. Be sure you have a good cuff. An arm one is generally better than a wrist one. Bring the cuff to a doctor's appointment to validate that the measurements that your cuff are taking are accurate. Take your blood pressure twice daily when you are sitting down and relaxing. Record the numbers in a log and bring this log with you to your doctors' appointments. (5) Lose Weight if your BMI is above 25. A healthy BMI is between 19-25. To calculate Your BMI, you may use a Standard BMI Calculator on the NIH BMI website: <www.nhlbi.nih.gov/guidelines/obesity/BMI/bmicalc.htm>. Weigh oneself daily. If you are overweight, set a goal to lose weight. A pound a week loss if needed is a good target. (6) Reduce Blood Sugar. Limit foods and liquids with "added sugars." (Added sugars include sucrose, fructose, glucose, maltose, dextrose, high fructose corn syrup, corn syrup, concentrated fruit juice and honey). (7) Stop Smoking. If you smoke, quitting smoking is one of the best things that you can do for your health. Smoking increases your risk of heart attack, stroke, and peripheral vascular disease, which is a build-up of plaque in your arteries. Please discard all the cigarettes and lighters in your house. Have a plan for what you will do when you have the urge to smoke. Direct and second- hand smoke shortens your life as well as the lives of your family, friends and others around you. For your health and the health of those around you, please consider quitting! Proper Bending Body Mechanics: Maintain a wide stance with one foot slightly in front of the other. Keep your back straight. Bend utilizing the strength in your hips and knees. Do not bend at the waist. Maintain the lifted object at your waist-level close to your body. Avoid lifting weight that causes immediately pain or pain anywhere in the body afterwards. Smoking/Nicotine If there was ever one thing that you could do to increase your overall health, decrease your risk of cardiovascular problems by about 39% the second you make the choice, it is to STOP SMOKING. Your body's most instant gratification is the second you stop smoking. We have all heard the studies, read the articles but it is true, smoking is extremely bad for your overall health, and moreover it is detrimental to your bone health. Nicotine, IN ANY FORM, kills bone cells, prevents your body from healing fractures, and significantly prolongs healing after surgery. In spine surgery specifically, it increases your risk of not healing your bones to create a fusion and increases your risk of having a revision surgery due to this up to 60%. I know it is hard. I know it feels impossible. But there are ways. Take control of your life. We are here to help you through it. And when you are ready, ask us and we can direct you to help if you desire. Use the START Plan to Quit Smoking (please visit the [employer]org website liste d below for more information): S = Set a quit date. Choose a date within the next 2 weeks, so you have enough time to prepare without losing your motivation to quit. If you mainly smoke at work, quit on the weekend, so you have a few days to adjust to the change. T = Tell family, friends, and co-workers that you plan to quit. Let your friends and family in on your plan to quit smoking and tell them you need their support and encouragement to stop. Look for a quit michael who wants to stop smoking as well. You can help each other get through the rough times. A = Anticipate and plan for the challenges you'll face while quitting. Most people who begin smoking again do so within the first 3 months. You can help yourself make it through by preparing ahead for common challenges, such as nicotine withdrawal and cigarette cravings. R = Remove cigarettes and other tobacco products from your home, car, and work. Throw away all your cigarettes (no emergency pack!), lighters, ashtrays, and matches. Wash your clothes and freshen up anything that smells like smoke. Shampoo your car, clean your drapes and carpet, and steam your furniture. T = Talk to your doctor about getting help to quit. Your doctor can prescribe medication to help with withdrawal and suggest other alternatives. If you can't see a doctor, you can get many products over the counter at your local pharmacy or grocery store, including the nicotine patch, nicotine lozenges, and nicotine gum. Resources for Quitting Smoking: <https://www.[place].gov/documents/[facility]/Quit_Tobacco_Resources_ for_patients_313480_7.pdf> Supplementation: Take recommended dosages of Vitamin D and Calcium to help fortify your bones and help them to heal. See your health maintenance packet for dosages and recommended levels. DVT/VTE prophylaxis: You will be given compression stockings from the hospital. Wear these daily for the first two weeks after surgery. You may take them off at night. You may be prescribed a medication to help thin your blood. Take this as directed. If you are not prescribed this medication, early and frequent ambulation has been shown to be the best prophylaxis to deep vein thrombosis and sequelae related to this event. 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 LE weakness b/l 4. Low back pain Procedures: Revision [id number] decompression and fusion Patient Condition at Discharge: Good Plan - Discharge Summary Discharge Rx Participant: No New Discharge Prescriptions: New Aspirin [Adult Low Dose Aspirin EC] 81 mg PO DAILY #30 tab cefaDROXiL [Duricef] 500 mg PO Q12HR 5 Days #10 cap Cyclobenzaprine [Flexeril] 5 mg PO HS #14 tab Sennosides [Senna] 8.6 mg PO DAILY #20 tab Acetaminophen Tab [Tylenol] 650 mg PO Q6H #60 tab Continue amLODIPine [Norvasc] 5 mg PO DAILY Pyridoxine HCl (Vitamin B6) [Vitamin B-6] 100 mg PO DAILY Donepezil [Aricept] 5 mg PO HS Cholecalciferol [Vitamin D3 (125 Mcg = 5000 Iu)] 125 mcg PO DAILY Acetaminophen [Tylenol Extra Strength] 500 mg PO Q6H Potassium Chloride [Klor-Con M10] 10 meq PO DAILY Metoprolol Tartrate [Lopressor] 25 mg PO DAILY Furosemide [Lasix] 20 mg PO DAILY Gabapentin [Neurontin] 400 mg PO QID Discharge Medication List Potassium Chloride [Klor-Con M10] 10 meq PO DAILY 12/31/22 [History] Furosemide [Lasix] 20 mg PO DAILY 10/20/23 [History] Metoprolol Tartrate [Lopressor] 25 mg PO DAILY 10/20/23 [History] amLODIPine [Norvasc] 5 mg PO DAILY 10/20/23 [History] Cholecalciferol [Vitamin D3 (125 Mcg = 5000 Iu)] 125 mcg PO DAILY 04/19/24 [History] Donepezil [Aricept] 5 mg PO HS 04/19/24 [History] Gabapentin [Neurontin] 400 mg PO QID 04/19/24 [History] Pyridoxine HCl (Vitamin B6) [Vitamin B-6] 100 mg PO DAILY 04/19/24 [History] Acetaminophen [Tylenol Extra Strength] 500 mg PO Q6H 09/08/24 [History] Acetaminophen Tab [Tylenol] 650 mg PO Q6H #60 tab 09/17/24 [Rx] Aspirin [Adult Low Dose Aspirin EC] 81 mg PO DAILY #30 tab 09/17/24 [Rx] Cyclobenzaprine [Flexeril] 5 mg PO HS #14 tab 09/17/24 [Rx] Sennosides [Senna] 8.6 mg PO DAILY #20 tab 09/17/24 [Rx] cefaDROXiL [Duricef] 500 mg PO Q12HR 5 Days #10 cap 09/17/24 [Rx] Follow up Appointment(s)/Referral(s): Grady Bowles DO [Doctor of Osteopathic Medicine] - 09/22/24 11:00 am [facility] Visiting Nurse, [NON-STAFF] - As Needed (*[facility] will call to schedule home care services with you after discharge) [facility] [Primary Care Provider] - 1 Week Activity/Diet/Wound Care/Special Instructions: Spine Discharge and Recovery Instructions Date of Surgery: 09/17/2024 Diagnosis: 1.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 LE weakness b/l 4. Low back pain Procedure: Revision [id number] decompression and fusion Medications: See medication list All medication refills should be obtained through your primary care doctor or your clinic spine surgeon. Please discuss prescription refills at your follow up appointment. Do not call the hospital for medication refills. Dressing: Leave your dressing in place for a total of 5 days post operatively. Then you may remove your dressing and leave open to air. Keep the area clean and if not able to keep area clean, then cover with sterile gauze and tape. Showering: You may shower 3 days after your procedure allowing soap and water to run over incision. Do not scrub. Do not soak. Blot dry. Follow up: Please confirm a follow up appointment with your surgeon 3 weeks post operatively. Please make an appointment to follow up with your PCP in 1-2 weeks after surgery for evaluation '3 phase, 3-week plan' POST OP WEEKS 1-3 1. Lifting/carrying/pushing/pulling limited to less than 5 pounds. 2. Do not sit for longer than 15 minutes at one time. Get up and walk around. Prolonged sitting is NOT advised. If you lay down, see if you can tolerate laying down on you front (belly side) 3. Walk for periods of 15 minutes = 1 mile but no longer; do it multiple times times each day. 4. Ice your low back after activity. POST OP WEEKS 3-6 1. Lifting limited to less than 20 pounds. 2. Do not sit for longer than 30 minutes at a time. Frequently change positions. Use a sit-to stand workstation or take frequent breaks from sitting if you have returned to work. 3. Walk for 30 minutes each day. If possible, do these three or more times a day POST OP WEEKS 6+ At your 6-week appointment we will give you a physical therapy referral to focus on a core stabilization and strengthening program. You should also work on leg & buttock strengthening, hamstring & quadriceps stretching, and continue a low impact aerobic activity program such as swimming, walking, or riding a stationary bicycle. During the initial 6 weeks after your surgery, you are at the highest risk of re-injuring your spine. You should generally avoid BLT's (bending, lifting and twisting combination motions) and follow the above guidelines to reduce the chance of reinjury. You can anticipate post op appointments in our office at approximately 3 weeks and 6 weeks after your surgery. INCISION CARE: If your incision is not draining you do NOT need to cover it with a dressing. Keep your incision clean, dry and intact. In most cases, we apply skin glue, huyen or sutures to the incision at the time of surgery. This will be like a crust or have the appearance of a scab and will fall off in time on its own. The stitches or huyen need to be removed at 3 weeks post op appointment. You may begin to shower 3 days after surgery (this allows the glue to salas well). However, please avoid scrubbing the incision site or peeling off any of the skin glue. This will ensure optimal healing of your incision. Also, during this time avoid soaking the incision area in water - this includes swimming pools, hot tubs or baths. No ointments, lotions or oils on the incision until your surgeon allows. Leave huyen, sutures or glue in place. Neurological dysfunction that comes on suddenly can also be a sign of a stroke. Below some common symptoms of a stroke are listed: B - balance difficulty such as sudden onset walking or leaning to one side - NEW E - eye problem such as sudden double vision or trouble seeing on one side - NEW F - Facial weakness or numbness on one side - NEW A - Arm or leg weakness or numbness on one side - NEW S - Slurred speech or difficulty with word finding - NEW T - Time is BRAIN! Call 911 as soon as you recognize these symptoms Diet: Consume a regular diet rich in vegetables and lean protein such as chicken or fish. You should consume in a ratio of approximately 20% fats|40% carbohydrates|40%protein. Vegetables, sweet potatoes, brown rice or quinoa are examples of good carbohydrates. Chips, white bread, cookies and sweets/sugar are examples of bad carbohydrates. Limit your bad carbs, go wild with good carbs. "Life's Simple 7" Guidelines as per [employer] These will help you reclaim your life after surgery and rotary driller helper in your recovery, keeping in mind your restrictions. (1) Get Active. Physical activity can help people lose weight, control high blood pressure and cholesterol, feel emotionally better, and sleep better. (2) Control Cholesterol. Avoid a diet high in saturated fat, trans fat, & cholesterol. Limit whole milk & cream, ice cream, butter, egg yolks, processed meats (like sausage and hot dogs), and fatty meats. Choose healthy foods that are low in saturated fat, trans fat and cholesterol which include: Fruits and vegetables, fiber rich grain products (like whole grain pasta and brown rice), lean meat such as chicken, fish, nuts, seeds, and legumes. (3) Eat Better. Eat small portions. Shop at the grocery with a list and do not stray from it. Tips for a healthy diet include: Limit sodium intake to less than 1500mg daily, avoid prepackaged, processed, and fast foods, choose a diet rich in fruits, vegetables, and whole grain, high fiber foods, and limit saturated & cholesterol in your diet. (4) Manage Blood Pressure. If you have high blood pressure, you should have a cuff at home so that you can check your blood pressure regularly. Be sure you have a good cuff. An arm one is generally better than a wrist one. Bring the cuff to a doctor's appointment to validate that the measurements that your cuff are taking are accurate. Take your blood pressure twice daily when you are sitting down and relaxing. Record the numbers in a log and bring this log with you to your doctors' appointments. (5) Lose Weight if your BMI is above 25. A healthy BMI is between 19-25. To calculate Your BMI, you may use a Standard BMI Calculator on the NIH BMI website: <www.nhlbi.nih.gov/guidelines/obesity/BMI/bmicalc.htm>. Weigh oneself daily. If you are overweight, set a goal to lose weight. A pound a week loss if needed is a good target. (6) Reduce Blood Sugar. Limit foods and liquids with "added sugars." (Added sugars include sucrose, fructose, glucose, maltose, dextrose, high fructose corn syrup, corn syrup, concentrated fruit juice and honey). (7) Stop Smoking. If you smoke, quitting smoking is one of the best things that you can do for your health. Smoking increases your risk of heart attack, stroke, and peripheral vascular disease, which is a build-up of plaque in your arteries. Please discard all the cigarettes and lighters in your house. Have a plan for what you will do when you have the urge to smoke. Direct and second- hand smoke shortens your life as well as the lives of your family, friends and others around you. For your health and the health of those around you, please consider quitting! Proper Bending Body Mechanics: Maintain a wide stance with one foot slightly in front of the other. Keep your back straight. Bend utilizing the strength in your hips and knees. Do not bend at the waist. Maintain the lifted object at your waist-level close to your body. Avoid lifting weight that causes immediately pain or pain anywhere in the body afterwards. Smoking/Nicotine If there was ever one thing that you could do to increase your overall health, decrease your risk of cardiovascular problems by about 39% the second you make the choice, it is to STOP SMOKING. Your body's most instant gratification is the second you stop smoking. We have all heard the studies, read the articles but it is true, smoking is extremely bad for your overall health, and moreover it is detrimental to your bone health. Nicotine, IN ANY FORM, kills bone cells, prevents your body from healing fractures, and significantly prolongs healing after surgery. In spine surgery specifically, it increases your risk of not healing your bones to create a fusion and increases your risk of having a revision surgery due to this up to 60%. I know it is hard. I know it feels impossible. But there are ways. Take control of your life. We are here to help you through it. And when you are ready, ask us and we can direct you to help if you desire. Use the START Plan to Quit Smoking (please visit the [email or web address] website listed below for more information): S = Set a quit date. Choose a date within the next 2 weeks, so you have enough time to prepare without losing your motivation to quit. If you mainly smoke at work, quit on the weekend, so you have a few days to adjust to the change. T = Tell family, friends, and co-workers that you plan to quit. Let your friends and family in on your plan to quit smoking and tell them you need their support and encouragement to stop. Look for a quit michael who wants to stop smoking as well. You can help each other get through the rough times. A = Anticipate and plan for the challenges you'll face while quitting. Most people who begin smoking again do so within the first 3 months. You can help yourself make it through by preparing ahead for common challenges, such as nicotine withdrawal and cigarette cravings. R = Remove cigarettes and other tobacco products from your home, car, and work. Throw away all your cigarettes (no emergency pack!), lighters, ashtrays, and matches. Wash your clothes and freshen up anything that smells like smoke. Shampoo your car, clean your drapes and carpet, and steam your furniture. T = Talk to your doctor about getting help to quit. Your doctor can prescribe medication to help with withdrawal and suggest other alternatives. If you can't see a doctor, you can get many products over the counter at your local pharmacy or grocery store, including the nicotine patch, nicotine lozenges, and nicotine gum. Resources for Quitting Smoking: <https://www.[place].gov/documents/[facility]/Quit_Tobacco_Resources_for_patients_313 480_7.pdf> Supplementation: Take recommended dosages of Vitamin D and Calcium to help fortify your bones and help them to heal. See your health maintenance packet for dosages and recommended levels. DVT/VTE prophylaxis: You will be given compression stockings from the hospital. Wear these daily for the first two weeks after surgery. You may take them off at night. You may be prescribed a medication to help thin your blood. Take this as directed. If you are not prescribed this medication, early and frequent ambulation has been shown to be the best prophylaxis to deep vein thrombosis and sequelae related to this event. Discharge Disposition: HOME SELF-CARE
--- NOTE | 2024-09-17 10:37 | P.PN ---
Subjective Progress Note Date: 09/17/24 Principal diagnosis: 1.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 LE weakness b/l 4. Low back pain Patient was seen at bedside this morning sitting up in chair with dressing in place over lumbar spine. Patient says he has been doing fairly well since surgery and does note continued improvement over the past couple days since surgery. He says he has been getting up with therapy and walk around the room with brace on while he is up. Patient says he does have history of urinary continence and prostate cancer and does follow-up in the outpatient setting with Dr. Cheek for this. Patient says he is looking forward to going home later today. He says his will be able to help him out once he is home. Patient denies any other orthopedic complaints at this time. Objective - Vital Signs Vital signs: Vital Signs Temp 97.6 F 09/17/24 08:00 Pulse 120 H 09/17/24 08:00 Resp 17 09/17/24 08:00 BP 120/83 09/17/24 08:00 Pulse Ox 78 L 09/17/24 00:55 FiO2 Intake & Output 09/16/24 09/17/24 09/17/24 18:59 06:59 18:59 Intake Total 250 Output Total 900 2000 Balance -650 -2000 Intake: Oral 250 Output: Urine 900 2000 Other: Voiding Method Incontinent - Exam General: The patient is awake and alert, in no acute distress Skin: Skin is warm and dry with no obvious rashes or lesions. Surgical incision to the lumbar spine, dressing is clean dry intact Eye: Pupils are equal, round and reactive to light, extra-ocular movements are intact; there is normal conjunctiva bilaterally. Neck: The neck is supple, there is no tenderness and ROM intact. Cardiovascular: There is a regular rate and rhythm. No murmur, rub or gallop is appreciated. Respiratory: Respirations are non-labored, breath sounds are equal. Gastrointestinal: Soft, non-distended, non-tender abdomen. Back: There is no tenderness to palpation in the midline, paralumbar, parathoracic or buttocks region. There is no obvious deformity . Musculoskeletal: ROM limited secondary to pain and stiffness from surgical procedure. Right: Shoulder abduction 5/5, elbow flexors 5/5, wrist dorsiflexors 5/5. finger abductor 5/5, igniter assembler 5/5, hip flexor 4/5, knee flexor 4/5, ankle dorsiflexor 4/5, ankle plantarflexion 4/5 and extensor hallucis 4/5. Left: Shoulder abduction 5/5, elbow flexors 5/5, wrist dorsiflexors 5/5. finger abductor 5/5, igniter assembler 5/5, hip flexor 4/5, knee flexor 4/5, ankle dorsiflexor 4/5, ankle plantarflexion 4/5 and extensor hallucis 4/5. Neurological: CN 2-12 intact. There are no obvious motor or sensory deficits. Movement and coordination equal and intact. Sensory exam to light touch intact C5-T1 and intact from L2-S1. Reflexes 2/4 in bilateral upper and lower extremities. Negative Hoffmans, babinski, and clonus signs. Psychiatric: Cooperative, appropriate mood & affect, normal judgment. - Labs CBC & Chem 7: 09/17/24 04:13 09/17/24 04:13 Labs: Abnormal Lab Results - Last 24 Hours (Table) 09/17/24 09/17/24 Range/Units 04:13 04:13 WBC 11.31 H (4.50-10.00) X 10*3/uL RBC 3.20 L (4.40-5.60) X 10*6/uL Hgb 10.0 L (13.0-17.0) g/dL Hct 32.2 L (39.6-50.0) % MCV 100.6 H (80.0-97.0) FL MCHC 31.1 L (32.0-37.0) g/dL RDW 14.7 H (11.5-14.5) % Glucose 119 H (70-110) mg/dL Calcium 8.2 L (8.7-10.3) mg/dL Assessment and Plan Assessment: 1.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 LE weakness b/l 4. 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 Patient stable bedside this morning with dressing present to the lumbar spine. Incision appears to be healing well at this time. Rodo well aligned and intact. Continue working with PT/OT daily. Pain medication as needed. Brace on while up and about. Follow-up in the outpatient setting with urology as needed. Discharge home today with home care. 2. Appreciate medical and urology management 3. Pain management -Tylenol; [place]; gabapentin; Flexeril 4. DVT prophylaxis -aspirin 81 mg twice daily 5. GI prophylaxis -senna; Protonix 6. PT/OT -weightbearing as tolerated with walker and brace on while up and abo ut 7. Encourage incentive spirometer use 8. Discharge planning - discharge home today with home care Time with Patient: Less than 30
--- NOTE | 2024-09-17 15:06 | P.PN ---
Subjective Progress Note Date: 09/17/24 Hospital course: Patient is a pleasant 79-year-old male with a past medical history of hypertension, obstructive sleep apnea CPAP dependent nightly, prostate cancer with urinary incontinence secondary to cancer treatments, and chronic lumbar back pain with bilateral lower extremity weakness and radiculopathies. Is currently admitted under orthospine surgery team status post L3-Pelvis revision decompression and fusion with biomechanical cage placement and removal of segmental hardware completed by Dr. Bowles on 09/13/24. We were consulted for medical management throughout hospitalization. Physical exam: Patient seen and fully evaluated at bedside this morning. He sitting up in chair at bedside. He reports feeling much better today and looking forward to going home. He denies having any pain or complaints. He reports he did well with physical therapy this morning. Reports it took him out but states he still feels ready to go home. He denies any needs, questions, or concerns at this time. General: Nontoxic, no distress and appears stated age. Derm: Skin warm and dry, normal coloration for ethnicity. Surgical dressing in place lumbar spine, clean, dry, and intact. Head: Atraumatic, normocephalic and symmetric. Eyes: EOM's intact, no lid lag, and anicteric sclera Mouth: no lip lesions, mucus membranes moist Cardiovascular: regular rate and rhythm with normal S1S2, soft systolic murmur, positive posterior tibial pulses bilaterally, and cap refill < 2 seconds. Lungs: Respirations even, regular, and unlabored on room air. Lungs CTA bilaterally, no rhonchi, no rales, no wheezing, and no accessory muscle usage. Abdominal: soft, nontender to palpation, no guarding. . Ext: ROM intact. No gross muscle atrophy, no edema, no contractures Neuro: Speech clear, face symmetrical and CN II-XII grossly intact with no noted focal neuro deficits Psych: Alert and oriented to person, place, time, and situation. Appropriate and pleasant affect. Assessment and Plan of Care: Status post L3 through pelvis revision -Management per primary admitting orthospine surgery team including DVT prophylaxis, pain management, wound/dressing/drain management, and PT/OT. -Currently DVT prophylaxis with aspirin 81 mg daily, PAMELA hose, and SCDs. Constipation -Patient started on MiraLAX 17 g daily with as needed Dulcolax 5 mg daily for constipation. Acute postoperative blood loss anemia -Stable and expected finding. Hemoglobin remained stable at 9.6. No need for t ransfusion or further intervention at this time. Will continue to monitor with repeat morning CBC. Hypertension -Continue daily medication regimen with amlodipine 5 mg daily, furosemide 20 mg daily, and metoprolol 25 mg daily. Obstructive sleep apnea -Continue CPAP nightly and while napping. History of prostate cancer with chronic urinary incontinence -Diop catheter was removed this morning and patient urinating via external catheter without any difficulties or reports of retention. -Patient with known urinary incontinence, but denies difficulties with retention. Data and imaging reviewed: -Morning labs reviewed.. CBC showing leukocytosis with WBC count of 11.31 and stanle postoperative blood loss anemia with hemoglobin of 10.0. BMP unremarkable. Blood glucose 119. Magnesium 1.8. -Vital signs reviewed. Blood pressure 120/83, heart rate 120 (patient just ambulated with PT at time of vitals and decreased back down to 74 at time of physical exam via radial pulse), respiratory rate 17, temp 97.6 F, and SpO2 95% room air. Thank you for allowing us to participate in the care of this pleasant patient. Do not hesitate to contact us with questions. Someone can be reached from the [facility] hospitalist group all hours of the day at [phone] or via [employer]. Patient was seen independently by Nurse Pracitioner. This document was prepared using [employer] dictation software. Please allow for errors in podopediatrician, while rare they do occur. Arjun Vazquez NP rendered care for this patient independently, reviewed the findings and plan as documented in the note above and agree with plan. I did not physically speak with or examine the patient on this date. Objective - Vital Signs Vital signs: Vital Signs Temp 97.6 F 09/17/24 08:00 Pulse 120 H 09/17/24 08:00 Resp 17 09/17/24 08:00 BP 120/83 09/17/24 08:00 Pulse Ox 78 L 09/17/24 00:55 FiO2 Intake & Output 09/16/24 09/17/24 09/17/24 18:59 06:59 18:59 Intake Total 250 Output Total 900 2000 Balance -650 -1999 Intake: Oral 250 Output: Urine 900 2000 Other: Voiding Method Incontinent - Labs CBC & Chem 7: 09/17/24 04:13 09/17/24 04:13 Labs: Abnormal Lab Results - Last 24 Hours (Table) 09/16/24 Range/Units 03:26 Glucose 128 H (70-110) mg/dL Calcium 7.9 L (8.7-10.3) mg/dL
[2024-09-17 15:07] VITALS: PULSE 78
--- NOTE | 2024-09-19 11:18 | P.GSCN ---
History of Present Illness Consult date: 09/17/24 History of present illness: 79 yo male in the hospital with back surgery. He has chronic incontinence due to his treatment for his prostate cancer years ago. He has had multiple evaluations and treatments for his incontinence that have failed. His symptoms are unchanged Review of Systems All systems: negative - Constitutional Denies fever, Denies weight loss - EENT Eyes: denies blurred vision Ears, nose, mouth and throat: Denies dysphagia - Cardiovascular Denies chest pain, Denies shortness of breath - Respiratory Denies cough, Denies 7 - Gastrointestinal Reports as per HPI - Genitourinary Denies dysuria, Denies hematuria - Integumentary Denies rash, Denies unusual bruising - Neurological Denies headaches, Denies syncope - Hematologic/Lymphatic Denies easy bleeding, Denies easy bruising Past Medical History Past Medical History: Cancer, Hearing Disorder / Deafness, Hypertension, Osteoarthritis (OA), Sleep Apnea/CPAP/BIPAP Additional Past Medical History / Comment(s): CPAP USE, HX PROSTATE CANCER, INCONTINTENT OF URINE DUE TO PROSTATE CANCER TREATMENT, HX KIDNEY STONES, BILA TERAL HEARING AIDS. History of Any Multi-Drug Resistant Organisms: None Reported Past Surgical History: Adenoidectomy, Back Surgery, Orthopedic Surgery, Tonsillectomy Additional Past Surgical History / Comment(s): TOTAL LEFT KNEE REPLACEMENT X2, RIGHT FOOT BUNIONECTOMY, RIGHT HIP REPLACEMENT, BACK SURGERY WITH HARDWARE. Past Anesthesia/Blood Transfusion Reactions: No Reported Reaction Additional Past Anesthesia/Blood Transfusion Reaction / Comm: Never received blood transfusion. Past Psychological History: No Psychological Hx Reported Smoking Status: Former smoker Past Alcohol Use History: Rare Additional Past Alcohol Use History / Comment(s): STARTED SMOKING AGE 12, QUIT 29 YRS AGO, SMOKED 2-3 PPD. Past Drug Use History: None Reported - Past Family History Father Family Medical History: Cancer Additional Family Medical History / Comment(s): BRAIN CANCER. Mother Family Medical History: Cancer Additional Family Medical History / Comment(s): LUNG CANCER. Brother(s) Family Medical History: Cancer Additional Family Medical History / Comment(s): PANCREATIC CANCER. Medications and Allergies Home Medications Medication Instructions Recorded Confirmed Type Potassium Chloride [Klor-Con M10] 10 meq PO DAILY 12/31/22 09/13/24 History Furosemide [Lasix] 20 mg PO DAILY 10/20/23 09/13/24 History Metoprolol Tartrate [Lopressor] 25 mg PO DAILY 10/20/23 09/13/24 History amLODIPine [Norvasc] 5 mg PO DAILY 10/20/23 09/13/24 History Cholecalciferol [Vitamin D3 (125 125 mcg PO DAILY 04/19/24 09/13/24 History Mcg = 5000 Iu)] Donepezil [Aricept] 5 mg PO HS 04/19/24 09/13/24 History Gabapentin [Neurontin] 400 mg PO QID 04/19/24 09/13/24 History Pyridoxine HCl (Vitamin B6) 100 mg PO DAILY 04/19/24 09/13/24 History [Vitamin B-6] Acetaminophen [Tylenol Extra 500 mg PO Q6H 09/08/24 09/13/24 History Strength] Acetaminophen Tab [Tylenol] 650 mg PO Q6H #60 tab 09/17/24 Rx Aspirin [Adult Low Dose Aspirin EC] 81 mg PO DAILY #30 tab 09/17/24 Rx Cyclobenzaprine [Flexeril] 5 mg PO HS #14 tab 09/17/24 Rx Sennosides [Senna] 8.6 mg PO DAILY #20 tab 09/17/24 Rx [id number] [Duricef] 500 mg PO Q12HR 5 Days #10 cap 09/17/24 Rx Allergies Allergy/AdvReac Type Severity Reaction Status Date / Time Penicillins Allergy Anaphylaxis Verified 09/13/24 10:06 Surgical - Exam Vital Signs Temp Pulse Resp BP Pulse Ox 97.7 F 55 L 18 149/92 97 09/13/24 10:07 09/13/24 10:07 09/13/24 10:07 09/13/24 10:07 09/13/24 10:07 Results - Labs 09/17/24 04:13 09/17/24 04:13 Abnormal Lab Results - Last 24 Hours (Table) 09/16/24 09/16/24 Range/Units 03:26 03:26 WBC 11.69 H (4.50-10.00) X 10*3/uL RBC 3.11 L (4.40-5.60) X 10*6/uL Hgb 9.6 L (13.0-17.0) g/dL Hct 30.9 L (39.6-50.0) % MCV 99.4 H (80.0-97.0) FL MCHC 31.1 L (32.0-37.0) g/dL RDW 14.8 H (11.5-14.5) % Glucose 128 H (70-110) mg/dL Calcium 7.9 L (8.7-10.3) mg/dL Diabetes panel 09/16/24 Range/Units 03:26 Sodium 138 (135-145) mmol/L Potassium 4.4 (3.5-5.5) mmol/L Chloride 105 (96-109) mmol/L Carbon Dioxide 25.9 (21.6-31.8) mmol/L BUN 15.0 (9.0-27.0) mg/dL Creatinine 1.0 (0.6-1.5) mg/dL Glucose 128 H (70-110) mg/dL Calcium 7.9 L (8.7-10.3) mg/dL Calcium panel 09/16/24 Range/Units 03:26 Calcium 7.9 L (8.7-10.3) mg/dL Pituitary panel 09/16/24 Range/Units 03:26 Sodium 138 (135-145) mmol/L Potassium 4.4 (3.5-5.5) mmol/L Chloride 105 (96-109) mmol/L Carbon Dioxide 25.9 (21.6-31.8) mmol/L BUN 15.0 (9.0-27.0) mg/dL Creatinine 1.0 (0.6-1.5) mg/dL Glucose 128 H (70-110) mg/dL Calcium 7.9 L (8.7-10.3) mg/dL Adrenal panel 09/16/24 Range/Units 03:26 Sodium 138 (135-145) mmol/L Potassium 4.4 (3.5-5.5) mmol/L Chloride 105 (96-109) mmol/L Carbon Dioxide 25.9 (21.6-31.8) mmol/L BUN 15.0 (9.0-27.0) mg/dL Creatinine 1.0 (0.6-1.5) mg/dL Glucose 128 H (70-110) mg/dL Calcium 7.9 L (8.7-10.3) mg/dL Assessment and Plan Assessment: Impression: s/p back surgery. Chronic urinary incontinence, prostate cancer, remission Recommendations. I have no immediate recommendations urologically for this patient
--- NOTE | 2024-09-22 11:45 | P.ANPRN ---
Procedure Note - Anesthesia - Invasive Line Left Arterial Line Time Out Performed: Yes Date of Procedure: 09/13/24 Location of Patient: PreOp Preparation: Sterile Prep, Sterile Dressing Arterial Line Location: Radial Ultrasound Used: No Purpose - Visualization and Identification of Vasculature: No Image Stored and Saved: No Narrative: Invasive line placement per sterile protocol utilized.Informed consent obtained from the patient. Procedure was performed under complete aseptic precautions. The Left wrist is slightly extended and placed on a roll of cloth. Radial artery palpated and appeared to have a intact collateral circulation. Front of the wrist was cleaned with ChloraPrep. It was draped and 2 mL of 1% lidocaine was infiltrated and ability into the front of the wrist. A 20-gauge two and half inch Arrow arterial catheter was inserted and a bright red blood/back was noticed. It was connected to the pressure monitoring line and the flashback was confirmed. The line was sutured into the skin. Tegaderm dressing was applied. Patient tolerated the procedure very well with no apparent complications.
== END 2024-09-17 13:06 | disposition home or self-care (01) | DRG 427 ==
LOC: 2ORMAIN 09:14 → 4SSUR 17:04
PROVIDERS: ADMIT Orthopaedic Surgery; ATTEND Orthopaedic Surgery
PROC: 0SG30AJ Fusion of Lumbosacral Joint with Interbody Fusion Device, Posterior Approach, Anterior Column, Open Approach (ICD-10-PCS; 2024-09-13)
PROC: 0SG3071 Fusion of Lumbosacral Joint with Autologous Tissue Substitute, Posterior Approach, Posterior Column, Open Approach (ICD-10-PCS; 2024-09-13)
PROC: 0SG704Z Fusion of Right Sacroiliac Joint with Internal Fixation Device, Open Approach (ICD-10-PCS; 2024-09-13)
PROC: 0SG804Z Fusion of Left Sacroiliac Joint with Internal Fixation Device, Open Approach (ICD-10-PCS; 2024-09-13)
PROC: 0SG1071 Fusion of 2 or more Lumbar Vertebral Joints with Autologous Tissue Substitute, Posterior Approach, Posterior Column, Open Approach (ICD-10-PCS; 2024-09-13)
PROC: 00NY0ZZ Release Lumbar Spinal Cord, Open Approach (ICD-10-PCS; 2024-09-13)
PROC: 01NB0ZZ Release Lumbar Nerve, Open Approach (ICD-10-PCS; 2024-09-13)
PROC: 0ST40ZZ Resection of Lumbosacral Disc, Open Approach (ICD-10-PCS; 2024-09-13)
PROC: 0ST20ZZ Resection of Lumbar Vertebral Disc, Open Approach (ICD-10-PCS; 2024-09-13)
PROC: 0QP004Z Removal of Internal Fixation Device from Lumbar Vertebra, Open Approach (ICD-10-PCS; 2024-09-13)
PROC: 0QP104Z Removal of Internal Fixation Device from Sacrum, Open Approach (ICD-10-PCS; 2024-09-13)
PROC: 4A11X4G Monitoring of Peripheral Nervous Electrical Activity, Intraoperative, External Approach (ICD-10-PCS; 2024-09-13)
PROC: 0SG10AJ Fusion of 2 or more Lumbar Vertebral Joints with Interbody Fusion Device, Posterior Approach, Anterior Column, Open Approach (ICD-10-PCS; principal; 2024-09-13 11:15)
DX: M96.0 Pseudarthrosis after fusion or arthrodesis (principal); T84.038A Mechanical loosening of other internal prosthetic joint, initial encounter; Z68.42 Body mass index [BMI] 45.0-49.9, adult; M47.26 Other spondylosis with radiculopathy, lumbar region; M48.062 Spinal stenosis, lumbar region with neurogenic claudication; E66.9 Obesity, unspecified; G62.9 Polyneuropathy, unspecified; H91.93 Unspecified hearing loss, bilateral; I10 Essential (primary) hypertension; C61 Malignant neoplasm of prostate; G47.33 Obstructive sleep apnea (adult) (pediatric); G89.29 Other chronic pain; N39.498 Other specified urinary incontinence; Y83.4 Other reconstructive surgery as the cause of abnormal reaction of the patient, or of later complication, without mention of misadventure at the time of the procedure; Z96.641 Presence of right artificial hip joint; Z96.652 Presence of left artificial knee joint; Z79.82 Long term (current) use of aspirin; Z79.899 Other long term (current) drug therapy; Z87.442 Personal history of urinary calculi; Z87.891 Personal history of nicotine dependence
CPT/HCPCS: 72100; 72131; 80048; 80053; 83735; 85025; 85027